=== PATIENT | female | born 1930 | race Caucasian/White ===

== ENCOUNTER → 2016-12-17 | Outpatient (CLI) | payer MEDICARE, OTHER | END | disposition home or self-care (01) | LOC: GMAJ 14:19 | PROVIDERS: ATTEND Family Medicine | DX: E53.9 Vitamin B deficiency, unspecified (principal); E55.9 Vitamin D deficiency, unspecified; R53.83 Other fatigue ==

== ENCOUNTER 2017-03-02 04:25 | Inpatient (IN) | payer MEDICARE ==
[2017-03-02] MEDS ORDERED: SODIUM CHLORIDE 0.9% 1000ML 500 ML IVS ONE (04:40)
[2017-03-02] MEDS ORDERED: HYDROmorphone HCL INJ 2 MG/ML VIAL IV ONE (04:40)
--- NOTE | 2017-03-02 04:52 | ED.PDOC ---
History of Present Illness - General Chief Complaint: Back Pain or Injury Stated Complaint: No BM in 2 to 3 days and low back pain Time Seen by Provider: 03/02/17 04:25 Source: patient, RN notes reviewed, family, EMS Exam Limitations: no limitations Additional Information: Pt brought in by EMS due to complaint of low back pain and abdominal pain. Pt lives with frail and has a daughter who lives nearby. Pt reports 3 days ago was her last BM. That day she had a Chiropractic adjustment. The following day she reports stretching before changing a light bulb and she started noticing lumbar pain after that. Pt has a history of previous compression fractures. Pt describes abdominal pain as diffuse and tender. She is comfortable in the stretcher during transport from ambulance to her exam room. She moaned a little due to pain/discomfort when transferring to exam bed. Neurologically she is completely intact regarding sensation and motor function. Her abdomen is a little diffusely tender but not distended. Quiescent bowel sounds. Family at bedside. Plan explained to patient and family and they are in agreement - labs, IV fluids, Pain Medicine, Imaging. - History of Present Illness Timing/Duration: other - 2 to 3 days Severity: moderate Improving Factors: rest Worsening Factors: movement Associated Symptoms: loss of appetite Allergies/Adverse Reactions: Allergies Diphenhydramine [From Benadryl] Allergy (Verified 03/02/17 04:42) Vomitting Meperidine [From Demerol HCl] Allergy (Verified 03/02/17 04:42) Amoxicillin [From Amoxil] Adverse Reaction (Verified 03/02/17 04:42) Calcitonin [From Miacalcin] Adverse Reaction (Verified 03/02/17 04:42) CI Pigment Blue 63 [From Bystolic] Adverse Reaction (Verified 03/02/17 04:42) Headache Escitalopram [From Lexapro] Adverse Reaction (Verified 03/02/17 04:42) Headache Nebivolol [From Bystolic] Adverse Reaction (Verified 03/02/17 04:42) Headache Phenol [From Forteo] Adverse Reaction (Verified 03/02/17 04:42) Raloxifene [From Evista] Adverse Reaction (Verified 03/02/17 04:42) Risedronate [From Actonel] Adverse Reaction (Verified 03/02/17 04:42) Sorbitan [From Bystolic] Adverse Reaction (Verified 03/02/17 04:42) Headache Teriparatide [From Forteo] Adverse Reaction (Verified 03/02/17 04:42) Yellow Dye [From Bystolic] Adverse Reaction (Verified 03/02/17 04:42) Headache Home Medications: Ambulatory Orders ALPRAZolam [Xanax] 0.25 mg PO BID PRN 10/03/14 Aspirin [Baby Aspirin] 81 mg PO DAILY 10/03/14 Citalopram Hydrobromide 40 mg PO DAILY 10/03/14 Pregabalin [Lyrica] 50 mg PO BEDTIME 10/03/14 Acetaminophen W/ Codeine [Tylenol W/ CODEINE #3] 1 ea PO Q6H PRN 01/09/15 Ibuprofen [Advil] 200 mg PO DAILY PRN 04/15/16 Lactobacillus Tab [Lactinex] 2 ea PO QID 04/15/16 Levalbuterol Tartrate [Xopenex Hfa] 45 mcg IN DAILY PRN 04/15/16 Polyethylene Glycol 3350 [Miralax] 17 gm PO DAILY PRN 04/15/16 Tramadol HCl 50 mg PO Q6H PRN #12 tab 04/15/16 Review of Systems - Review of Systems Constitutional: States: no symptoms reported EENTM: States: no symptoms reported Respiratory: States: no symptoms reported Cardiology: States: no symptoms reported Gastrointestinal/Abdominal: States: see HPI, abdominal pain, constipation Genitourinary: States: no symptoms reported Musculoskeletal: States: see HPI, back pain Skin: States: no symptoms reported Neurological: States: no symptoms reported Endocrine: States: no symptoms reported Hematologic/Lymphatic: States: no symptoms reported Past Medical History (General) - Patient Medical History Hx Seizures: No Hx Stroke: No Hx Dementia: No Hx Asthma: No Hx of COPD: Yes Hx Cardiac Disorders: No Hx Congestive Heart Failure: No Hx Pacemaker: No Hx Hypertension: Yes Hx Thyroid Disease: No Hx Diabetes: Yes Hx Gastroesophageal Reflux: No Hx Renal Disease: No Hx Cancer: No Hx of HIV: No Hx Hepatitis C: No Hx MRSA: No - Vaccination History Hx Tetanus, Diphtheria Vaccination: No Hx Influenza Vaccination: No Hx Pneumococcal Vaccination: No - Social History Hx Tobacco Use: Yes Hx Chewing Tobacco Use: No Hx Alcohol Use: Yes - wine Hx Substance Use: No Hx Substance Use Treatment: No Hx Depression: No Hx Physical Abuse: No Hx Emotional Abuse: No Hx Suspected Abuse: No - Female History Patient : No Family Medical History - Family History Mother Family History: No Known Living Status: Hx Cardiac Disease: Yes Physical Exam - Physical Exam General Appearance: Alert, Comfortable - at rest but she gets a little uncomfortable with palpation of abdomen and movement of her spine, Well Developed, Well Groomed, Well Hydrated, Well Nourished Eye Exam: bilateral normal Ears, Nose, Throat: hearing grossly normal, normal ENT inspection, normal pharynx Neck: non-tender, full range of motion, supple Respiratory: no respiratory distress, no accessory muscle use Cardiovascular/Chest: normal peripheral pulses, regular rate, rhythm Gastrointestinal/Abdominal: soft, abnormal bowel sounds - decreased, tenderness - mild - diffuse (especially lower abd) Back Exam: decreased range of motion, vertebral tenderness - around L3-L4 region Extremity: normal range of motion, non-tender, normal inspection Neurologic: training analyst II-XII nml as tested, no motor/sensory deficits, alert, normal mood/affect, oriented x 3 Skin Exam: normal color Lymphatic: no adenopathy Progress - Progress Progress: 03/02/17 05:46 Patient's pain improved after Dilaudid. Labs reviewed with patient and family. CT Scans obtained. CT Abd/Pelvis IMPRESSION: 1. Colonic diverticulosis without evidence of diverticulitis. 2. Large hiatal hernia. 3. No bowel obstruction. 4. No acute osseous abnormalities. Lumbar CT IMPRESSION: 1. Age indeterminate T11 superior endplate compression fracture, recommend correlation focal pain. 2. Chronic L2 compression fracture. 3. Multilevel degenerative changes. 03/02/17 06:16 Pt reports improvement in pain but it is still there. She is uncomfortable moving. Case discussed with Hayley Nolen (Nurse Practitioner ) who accepted patient for admission for pain control, observation and coordination for rehab. - Results/Orders Results/Orders: 03/02/17 04:38 Abdomen/Pelvis w/Contrast [CT] Stat 03/02/17 04:39 Hold Metformin x 48Hrs [id number] Lumbar Spine [CT] Stat Laboratory Results - last 24 hr 03/02/17 03/02/17 03/02/17 04:15 04:15 04:15 WBC 8.3 RBC 5.01 Hgb 14.9 Hct 45.0 MCV 89.8 MCH 29.8 MCHC 33.2 RDW 14.4 Plt Count 203 MPV 9.0 Absolute Neuts (auto) 4.80 Absolute Lymphs (auto) 3.10 Absolute Monos (auto) 0.50 Absolute Eos (auto) 0.00 Absolute Basos (auto) 0.00 Neutrophils % 57.1 Lymphocytes % 36.8 Monocytes % 5.6 Eosinophils % 0.1 L Basophils % 0.4 Sodium 136 Potassium 3.7 Chloride 102 Carbon Dioxide 25 Anion Gap 12.7 BUN 15 Creatinine 0.55 L BUN/Creatinine Ratio 27.3 H Random Glucose 107 H Serum Osmolality 273.3 L Calcium 9.6 Phosphorus 3.0 Magnesium 1.9 Total Bilirubin 0.6 AST 21 ALT 13 Alkaline Phosphatase 71 Serum Total Protein 8.3 H Albumin 4.1 Globulin 4.2 H Albumin/Globulin Ratio 1.0 L Departure - Departure Clinical Impression: Degeneration of lumbosacral intervertebral disc Constipation Qualifiers: Constipation type: unspecified constipation type Qualified Code(s): K59.00 - Constipation, unspecified Low back pain Qualifiers: Back pain laterality: midline Sciatica presence: without sciatica Qualified Code(s): M54.5 - Low back pain Thoracic compression fracture Qualifiers: Encounter type: initial encounter Fracture type: closed Qualified Code(s): S22.000A - Wedge compression fracture of unspecified thoracic vertebra, initial encounter for closed fracture Time of Disposition: 06:55 Disposition: Admit Patient Departure Forms: ED Discharge - Pt. Copy, Patient Portal Self Enrollment Referrals: [place] Urrutia III, MD [Primary Care Provider] - 1-5 Days Home Medications: Ambulatory Orders ALPRAZolam [Xanax] 0.25 mg PO BID PRN 10/03/14 Aspirin [Baby Aspirin] 81 mg PO DAILY 10/03/14 Citalopram Hydrobromide 40 mg PO DAILY 10/03/14 Pregabalin [Lyrica] 50 mg PO BEDTIME 10/03/14 Acetaminophen W/ Codeine [Tylenol W/ CODEINE #3] 1 ea PO Q6H PRN 01/09/15 Ibuprofen [Advil] 200 mg PO DAILY PRN 04/15/16 Lactobacillus Tab [Lactinex] 2 ea PO QID 04/15/16 Levalbuterol Tartrate [Xopenex Hfa] 45 mcg IN DAILY PRN 04/15/16 Polyethylene Glycol 3350 [Miralax] 17 gm PO DAILY PRN 04/15/16 Tramadol HCl 50 mg PO Q6H PRN #12 tab 04/15/16 Decision To Admit - Decistion To Admit Decision to Admit Reason: Medical Nature - Compression Fracture of T12. Pain Control. Decision to Admit Date: 03/02/17 Decision to Admit Time: 06:36
--- NOTE | 2017-03-02 05:58 | CT ---
EXAM DESCRIPTION: Lumbar Spine 03/02/2017 5:54 AM CDT CLINICAL HISTORY: 86 years, Female, frail elderly abdominal pain and lumbar pain COMPARISON: Lumbar spine radiographs October 09, 2016 TECHNIQUE: Volumetric CT acquisition was performed through the lumbar spine. Images in the axial, coronal, and sagittal planes were presented for interpretation. This exam was performed according to our departmental dose-optimization program, which includes automated exposure control, adjustment of the mA and/or kV according to patient size and/or use of iterative reconstruction technique. FINDINGS: There are 5 lumbar type vertebral bodies in normal anatomic alignment. There is a chronic L2 compression fracture. There is an age indeterminate T11 superior endplate compression fracture. There is no additional fracture or dislocation. There are multilevel degenerative changes throughout the lumbar spine. At the L1/L2 level, there is normal disc space height without significant canal or neural foraminal narrowing bilaterally At the L2/L3 level, there is a mild concentric disc bulge with facet hypertrophy bilaterally. There is mild neural foraminal narrowing on the right and mild to moderate neural foraminal narrowing on the left At the L3/L4 level, there is loss of disc space height with a small concentric disc bulge. There is facet and ligamentous hypertrophy bilaterally. There is mild to moderate neural foraminal narrowing bilaterally At the L4/L5 level, there is a moderate concentric disc bulge with moderate facet and ligamentous hypertrophy bilaterally. There is moderate neuroforaminal narrowing bilaterally At the L5/S1 level, there is loss of disc space height with a small concentric disc bulge. There is facet hypertrophy bilaterally. There is moderate severe neuroforaminal narrowing left and moderate neural foraminal narrowing on the right. The paravertebral and prevertebral soft tissues are normal. The visualized soft tissue structures of the abdomen are normal. The visualized vasculature is normal. There are extensive sigmoid diverticula without associated wall thickening or inflammatory changes. IMPRESSION: 1. Age indeterminate T11 superior endplate compression fracture, recommend correlation focal pain. 2. Chronic L2 compression fracture. 3. Multilevel degenerative changes. Electronically signed by: Jg Quinonez MD 03/02/2017 5:57 AM CDT
--- NOTE | 2017-03-02 06:14 | CT ---
Procedure: CT ABDOMEN PELVIS WITH IV CONTRAST Exam Date: 03/02/2017 Ordering Provider: Jaquan Rubio Clinical Indication: frail elderly abdominal pain and lumbar pain Comparison: 01/09/2015 TECHNIQUE: 5 mm images were taken through the abdomen and pelvis after the administration of nonionic intravenous contrast material. Oral contrast was not administered. Coronal and sagittal reformatted images were generated. This exam was performed according to our departmental dose optimization program which includes use of automated exposure control, adjustment of the mA and/or kV according to patient size and/or use of iterative reconstruction technique. FINDINGS: Lower chest: Cardiomegaly. Mild atelectasis in the dependent lower lobes. Abdomen: Liver and biliary system: No liver lesions. Very mild intrahepatic biliary ductal dilatation. No calcified gallstones. Spleen: Unremarkable Pancreas: Unremarkable Adrenal glands: Unremarkable Kidneys: No suspicious lesions or hydronephrosis in either kidney. Subcentimeter low-density lesions in both kidneys are too small to characterize. Lymph nodes: No lymphadenopathy Retroperitoneum, abdominal wall, peritoneal cavity: No ascites. No free intraperitoneal air. Vessels: No abdominal aortic aneurysm. Pelvis: Evaluation of the pelvis is limited by streak artifact from the patient's right hip prosthesis. Lymph nodes: No lymphadenopathy Bowel: Colonic diverticulosis without evidence of diverticulitis. Large hiatal hernia. No bowel obstruction. Appendix not visualized. No secondary findings to suggest acute appendicitis. No bowel wall thickening. Bladder: Grossly unremarkable Pelvic organs: Prior hysterectomy Bones: Postsurgical changes in the left hip. Diffuse demineralization of the bones. Vertebral body augmentation at T9. No acute osseous abnormalities. Old compression fracture of L2. IMPRESSION: 1. Colonic diverticulosis without evidence of diverticulitis. 2. Large hiatal hernia. 3. No bowel obstruction. 4. No acute osseous abnormalities. Electronically signed by: Elijah Simms MD 03/02/2017 6:14 AM CDT
--- NOTE | 2017-03-02 07:28 | HP ---
SUPERVISING PHYSICIAN: Derek Robbins M.D. CHIEF COMPLAINT: Back pain. HISTORY OF PRESENT ILLNESS: This is an 86 year-old female patient who has a significant history of lumbar radiculopathy as well as a chronic L2 compression fracture. She was brought in by EMS to the Emergency Room due to a complaint of low back pain as well as abdominal pain. She sees Dr. Dimas who is a chiropractor, and she saw her on . On Friday, she was attempting to replace a battery in her ceiling fire alarm. Her was holding the small ladder that she was standing on and as she reached for it she was able to get the battery out, but she felt a pop in her back as she twisted. She got down without incidence. There was no fall or traumatic injury. Shortly thereafter, her back began hurting. The pain worsened overnight. It got to the point yesterday where the pain was so bad in her back that she started to have abdominal pain also. She has a history of diverticulosis with several hospitalization for diverticulitis. She was brought to the hospital. A CT of her lumbar spine showed the old chronic L2 compression fracture, but it also showed an age indeterminate L11 superior end plate compression fracture. Her abdomen and pelvis CT per radiology interpretation shows colonic diverticulosis without evidence of diverticulitis, large hiatal hernia, no bowel obstruction, no acute osseous abnormalities. Laboratory shows CBC basically within normal limits. Metabolic panel shows electrolytes are within normal limits with the exception of creatinine is slightly low at 0.55, glucose slightly high at 107. I was called for hospital admission. PAST MEDICAL HISTORY: 1. Hypertension. 2. Hyperlipidemia. 3. Diverticulosis. 4. Osteoporosis. 5. Seasonal allergies. 6. Constipation. 7. Lumbar radiculopathy. PAST SURGICAL HISTORY: 1. Hysterectomy. 2. Open reduction and internal fixation of the right elbow. 3. Open reduction and internal fixation of the left hip. OUTPATIENT MEDICATIONS: Per the EMR and awaiting verification. ALLERGIES: DIPHENHYDRAMINE, DEMEROL, AMOXICILLIN, CALCITONIN, PIGMENT BLUE FROM BYSTOLIC, LEXAPRO, BYSTOLIC, FORTEO, EVISTA AND ACTONEL. SOCIAL HISTORY: She is retired. She is . She has 2 children. She is a retired surgical scrub nurse. She smoked briefly for 2 years many years ago. She drinks alcohol on a regular basis. She usually consumes either 1 beer or 1 glass of wine daily. She denies any illicit drug use. REVIEW OF SYSTEMS: GENERAL: Denies fever, fatigue or weight changes. HEENT: Denies sinus symptoms, ear pain, vision changes or sore throat. RESPIRATORY: Denies coughing, wheezing, shortness of breath. CARDIOLOGY: Denies chest pain, tachycardia or palpitations. GASTROINTESTINAL: Positive for diffuse abdominal pain most concentrated in the right upper quadrant. There has been no nausea, vomiting, diarrhea or constipation. GENITOURINARY: No polyuria, dysuria or hematuria. MUSCULOSKELETAL: As per the history of present illness. SKIN: Denies lesions or rashes. NEUROLOGIC: Positive for weakness. Denies headache or seizures. PHYSICAL EXAMINATION: VITAL SIGNS: She is afebrile, heart rate 69, blood pressure 155/82, respiratory rate 20 but it got as high as 24 in the Emergency Room. Her O2 sats are 93%. GENERAL: This is an 86 year-old female patient who is lying in her hospital bed. She looks to be in mild to moderate pain. HEENT: Normocephalic and atraumatic. Pupils are equal and reactive. Oropharynx is clear. NECK: Supple without mass. CHEST: Clear to auscultation bilaterally. There is equal rise and fall of the chest with inspiration and expiration. CARDIOVASCULAR: Regular rate and rhythm. ABDOMEN: Soft. Diffusely tender but slightly more tender in the right lower quadrant. There is no rebound tenderness and no guarding. BACK: Exam shows vertebral tenderness in the low back region. EXTREMITIES: No cyanosis, clubbing or edema. NEUROLOGIC: She is awake, alert and oriented times three. SKIN: No lesions or rashes noted. LABORATORY: Labs and films are as per the History of Present Illness. ASSESSMENT: 1. Intractable pain related to a T11 compression fracture with an existing chronic L2 compression fracture. 2. Abdominal pain with significant history of diverticulitis and CT evidence of colonic diverticulosis with no current diverticulitis. 3. Lumbar radiculopathy. 4. Mild hypertension presently on no antihypertensive. 5. Anxiety and depression. 6. History of constipation. 7. Osteoporosis. PLAN: We will admit the patient to the hospital. I will give her 3 doses of Toradol IV. I have started her on Tramadol for pain. I have consulted Dr. Clark in regards to her compression fracture. We placed a Phillips catheter. I will also order an abdominal sonogram in the morning given her significant history of diverticulitis as well as that tenderness on the right side. I have given her Lovenox for DVT prophylaxis as well as Protonix for ulcer prophylaxis. Routine labs for in the morning. Will review her medications and restart those. Otherwise we will continue to monitor the patient closely and followup as needed. Dr. Robbins is he collaborating physician and available for consultation. #[id number] [facility]ERNis[facility]
[2017-03-02] MEDS ORDERED: KETOROLAC TROMETHAMINE INJ 30 MG/ML VIAL ONE (11:26)
[2017-03-02] MEDS ORDERED: ONDANSETRON INJ 4 MG/2 ML VIAL IV PRN (11:27)
[2017-03-02] MEDS ORDERED: ACETAMINOPHEN SUPPOSITORY 650 MG PR PRN (11:27)
[2017-03-02] MEDS ORDERED: IV SET AND CAP CHANGE INJ INJ SCH (11:30)
[2017-03-02] MEDS: KETOROLAC TROMETHAMINE INJ 30 MG/ML VIAL IV SCH ×3 (11:30→23:45)
--- NOTE | 2017-03-02 12:22 | PCM.CORE ---
Physician DVT/VTE - Prophylaxis Currently: Patient already on anticoagulation therapy - Nurse DVT Assessment & Total Each Risk Factor Represents 3 Points: Age over 75 years Each Risk Factor Represents 1 Point: Medical PT at Bed Rest DVT Assessment Score: 4 - 3-4 High Risk Treatments: Early Ambulation *, Sequential Compression Device
[2017-03-02] MEDS: PANTOPRAZOLE SODIUM IV 40 MG VIAL IV SCH (13:25)
[2017-03-02] MEDS: ENOXAPARIN SODIUM 40 MG/0.4 ML SYG SUBCU SCH (13:25)
[2017-03-02] MEDS ORDERED: ALPRAZolam 0.25 MG TAB PO ONE (16:44)
[2017-03-02] MEDS ORDERED: ALPRAZolam 0.25 MG TAB PO PRN (16:48)
[2017-03-02] MEDS ORDERED: NON-FORMULARY MEDICATION 1 EA MIS (Citalopram Hydrobromide [Citalopram Hydrobromide] 40 MG PO SCH (17:00)
[2017-03-02] MEDS ORDERED: CITALOPRAM HBR 20 MG TAB ONE (17:32)
[2017-03-02] MEDS: CITALOPRAM HBR 20 MG TAB PO SCH (17:38)
[2017-03-02] MEDS ORDERED: PREGABALIN 25 MG CAP ONE (20:18)
[2017-03-02] MEDS: SODIUM CHLORIDE 0.9% (FLUSH) 10 ML SYG IV SCH (20:52)
[2017-03-02] MEDS ORDERED: NON-FORMULARY MEDICATION 1 EA MIS (Pregabalin [Lyrica] 50 MG) PO SCH (21:00)
[2017-03-02] MEDS: traMADol HCL 50 MG TAB PO PRN (21:07)
[2017-03-02] MEDS: SODIUM CHLORIDE 0.9% (FLUSH) 10 ML SYG IV PRN (23:45)
[2017-03-03] MEDS: SODIUM CHLORIDE 0.9% (FLUSH) 10 ML SYG IV PRN (06:14)
[2017-03-03] MEDS: PANTOPRAZOLE SODIUM IV 40 MG VIAL IV SCH (06:15)
[2017-03-03] MEDS ORDERED: PREGABALIN 25 MG CAP ONE (07:18)
[2017-03-03] MEDS: ENOXAPARIN SODIUM 40 MG/0.4 ML SYG SUBCU SCH (09:02)
[2017-03-03] MEDS: PREGABALIN 25 MG CAP PO SCH ×2 (09:03→21:30)
[2017-03-03] MEDS: CITALOPRAM HBR 20 MG TAB PO SCH (09:03)
[2017-03-03] MEDS: SODIUM CHLORIDE 0.9% (FLUSH) 10 ML SYG IV SCH ×2 (09:04→21:31)
--- NOTE | 2017-03-03 11:31 | CONS ---
CHIEF COMPLAINT: Back pain. HISTORY OF PRESENT ILLNESS: Ms. Nguyen is an 86-year-old female with a history of back pain that has been going on for about five days. She had no direct trauma related to this. She has been admitted and has had CT scan which was concerning for some compression fractures. She had no fall or anything, but she did have a point where she twisted and then felt the initial pain. She denies any neurologic symptoms. She has had vertebroplasty in the past for other fractures. PAST MEDICAL HISTORY: 1. Hypertension. 2. Hyperlipidemia. 3. Diverticulosis. 4. Osteoporosis. 5. Allergies. 6. Constipation. 7. Lumbar radiculopathy. PAST SURGICAL HISTORY: 1. Hysterectomy. 2. Left hip hemiarthroplasty. 3. Right elbow open reduction and internal fixation. MEDICATIONS: Please see her current medication list. ALLERGIES: BENADRYL, DEMEROL, AMOXIL, CALCITONIN, LEXAPRO, BYSTOLIC, FORTEO, EVISTA, ACTONEL. SOCIAL HISTORY: The patient does not smoke or use any illicit drugs. She does drink on occasion. FAMILY HISTORY: None pertinent to today's complaint. REVIEW OF SYSTEMS: Negative except as indicated in the History of Present Illness. PHYSICAL EXAMINATION: VITAL SIGNS: Blood pressure 155/82. Pulse 69. Respirations 20. O2 saturation 93%. Afebrile. MENTAL STATUS: The patient is awake, alert, and is able to give a good history and participate in the physical. The patient is oriented to person, place and time. SKIN: Normal tone and turgor. HEENT: Normocephalic, atraumatic. Pupils equal, round and reactive. Mucosal membranes are moist. NECK: Normal range of motion. No thyromegaly, no lymphadenopathy. CHEST: Normal respiratory excursion. CARDIAC: Regular rate and rhythm. No murmurs, rubs or gallops. MUSCULOSKELETAL: The bilateral upper extremities show no pain with range of motion. Sensation is intact. They are warm and well perfused. She has no crepitus and no deformity. The right lower extremity shows no significant discomfort. There is no deformity. The left lower extremity shows some mild discomfort with range of motion of the hip secondary to previous injury. She has no deformity. She does have some minor tenderness to palpation in the T11-T12 region. She has no step-offs and no bruising. She does have some paraspinous tenderness. IMAGING: She had some x-rays as well as CT scan done. The CT scan does show some what appear to be chronic fractures and possibly a compression fracture of T12 which is indeterminate with regards to age. ASSESSMENT: 1. Compression fracture, age indeterminate. PLAN: The plan at this point is for the patient to ambulate as tolerated. This type of fracture is generally stable and there are usually no issues with regards to worsening. Pain control would also be indicated. I appreciate the opportunity to participate in this patient's care. #[id number] [facility]
[2017-03-03] MEDS: traMADol HCL 50 MG TAB PO PRN (13:48)
[2017-03-03] MEDS: HYDROcodone 5MG/APAP 325MG 1 EA TAB PO PRN (16:54)
--- NOTE | 2017-03-03 20:57 | PN ---
DATE: 03/03/17 SUPERVISING PHYSICIAN: Rafael Peña M.D. SUBJECTIVE: The patient is sitting in the bedside chair eating lunch. She says she is fairly well controlled on her pain at this point. She was able to ambulate with the assistance of Physical Therapy with weightbearing as tolerated. OBJECTIVE: Temperature 98.2, pulse 63, blood pressure 106/62, respirations 18, satting 93% on room air. I's and O's show a negative balance of 840 with 360 in , 1200 out. LUNGS: Clear to auscultation bilaterally. HEART: Regular rate and rhythm. ABDOMEN: Soft, non-tender. Positive bowel sounds. EXTREMITIES: No clubbing, cyanosis or edema. BACK: Continues to have some mild tenderness over the T11 area. NEUROLOGIC: She is alert and oriented times three. LABORATORY: White count is within normal limits at 5.2, hemoglobin 13.4, hematocrit 40.6, platelet count 159,000. Differential continues to show normal without any shift. Chemistries show a slightly low potassium at 3.3 with BUN 17 , creatinine 0.74, glucose 79. Liver functions show to be within normal limits. RADIOLOGY: There were no radiographic studies. ASSESSMENT: 1. Intractable pain related to T11 compression fracture, undetermined acuity with existing chronic L2 compression fracture. 2. Abdominal pain with a history of diverticulitis with CT evidence of chronic diverticulosis but no current diverticulitis. 3. Lumbar radiculopathy. 4. Mild hypertension, controlled. 5. Anxiety and depression. 6. History of constipation. 7. Osteoporosis. PLAN: The patient continues to have good pain control. Dr. Clark has seen the patient in consultation recommending that she be weightbearing as tolerated. This morning, the patient was without any tenderness in her abdominal area. Will continue to monitor this closely. If she does once again show some tenderness, certainly we will reevaluate with additional radiographic studies. Will continue to provide pain control with p.o. medications in anticipation that the patient will discharge tomorrow once she again is reevaluated by Physical Therapy. Arrangements have been made for the patient to go making sure that she is safe once she is discharged. Once discharged, she will need close followup with her primary care physician, Dr. Urrutia. Until then, will continue to monitor the patient closely and treat appropriately. #[id number] [facility]
[2017-03-04] MEDS: HYDROcodone 5MG/APAP 325MG 1 EA TAB PO PRN (02:14)
[2017-03-04] MEDS: PANTOPRAZOLE SODIUM IV 40 MG VIAL IV SCH (05:32)
[2017-03-04] MEDS: SODIUM CHLORIDE 0.9% (FLUSH) 10 ML SYG IV PRN (05:32)
[2017-03-04] MEDS: ENOXAPARIN SODIUM 40 MG/0.4 ML SYG SUBCU SCH (09:23)
[2017-03-04] MEDS: CITALOPRAM HBR 20 MG TAB PO SCH (09:23)
[2017-03-04] MEDS: PREGABALIN 25 MG CAP PO SCH (09:23)
[2017-03-04] MEDS: SODIUM CHLORIDE 0.9% (FLUSH) 10 ML SYG IV SCH (09:24)
[2017-03-04 14:14] VITALS: TEMP 97.8
[2017-03-04 14:16] VITALS: BP 110/75; O2SAT 95
[2017-03-05] MEDS ORDERED: PANTOPRAZOLE SODIUM TAB 40 MG PO SCH (06:30)
--- NOTE | 2017-03-09 14:18 | DS ---
SUPERVISING PHYSICIAN: Rafael Peña M.D. DISCHARGE DIAGNOSIS: 1. Pain related to T11 compression fracture, undetermined acuity with existing L2 compression fracture, chronic. 2. Abdominal pain with a history of diverticulitis with CT evidence of chronic diverticulosis but no current diverticulitis, resolved prior to discharge. 3. Lumbar radiculopathy, chronic. 4. Mild hypertension, controlled. 5. Anxiety and depression. 6. History of constipation likely contributing to number 2. 7. Osteoporosis. HISTORY OF PRESENT ILLNESS: Ms. Nguyen is an 86 year-old female patient who with a significant history of lumbar radiculopathy as well as a chronic L2 compression fracture. She was brought into the Emergency Room by EMS due to a complaints of lower back pain as well as some abdominal pain. She had seen Dr. Dimas who is a chiropractor, and she saw him on prior to admission. On Friday, she was attempting to replace a battery in her ceiling in the fire alarm. Her was holding the small ladder that she was standing on and as she reached for it she was able to pull the battery out, but she felt a pop, turned and twisted, and felt pain. She got down without any incident with no reported falls or other traumatic injuries. Shortly after , her back began hurting. The pain worsened overnight to the point where yesterday, the day before admission, the pain was so bad in her back that she started having abdominal pains. She has a history of diverticulosis with several hospitalization for diverticulitis. She was brought to the hospital. A CT of her lumbar spine showed the old chronic L2 compression fracture, but also showed an age indeterminate T11 superior end plate compression fracture. Her abdomen and pelvis CT per radiology interpretation showed colonic diverticulosis without any diverticulitis, large hiatal hernia, no bowel obstruction, no acute osseous abnormalities. Laboratory studies initially were within normal limits. Given her intractable pain, she was placed in Observation for further treatment of her pain and to have orthopedic consultation. She was admitted in stable condition. LABORATORY: CBC was within normal limits both on admission and prior to discharge. Chemistries showed to be normal electrolytes. At discharge, potassium was slightly low at 3.3 as well as sodium had dropped to 134. BUN was slightly elevated at 24 but creatinine was 0.62. Liver functions all showed to be within normal limits. Calcium was within normal limits at 8.9, phosphorous and magnesium as well. RADIOLOGY: Abdominal and pelvis CT in the Emergency Room prior to admission with IV contrast and per radiology interpretation noted colonic diverticulosis without evidence of diverticulitis. There is also mention of large hiatal hernia but no bowel obstruction. No acute osseous abnormalities. She also had a lumbar spine CT completed and per radiology interpretation there was an age indeterminate T11 superior end plate compression fracture, chronic L2 compression fracture and multilevel degenerative changes. Please see that final result for full details on findings. HOSPITAL COURSE: Ms. Nguyen was admitted on 03/02/17 as noted for pain and some mild abdominal pain. She was started on pain medicine and was given some physical therapy assessment as well as seen in consultation by Dr. Clark. Refer to his notes for full findings. It was felt that her fracture was stable after seeing Dr. Clark. She was able to get up and ambulate with assistance with Physical Therapy and was felt safe enough to be discharged home. She also had some mild constipation that resolved with treatment and again was felt clinically well enough to be discharged. PLAN: Ms. Nguyen was discharged on 03/04/17 to have close clinical followup with Dr. Urrutia in 7 to 10 days as scheduled, and to have care with Physical Therapy at [facility]. She is to resume all of her home medications as directed. In regards to treatment of pain, she was encouraged to try Tylenol initially and if not working then she could advance to Tramadol as in the hospital, she felt Tramadol worked better than [place]. Walking as tolerated was encouraged as instructed by home health and physical therapy. She was told to return to the hospital if her condition failed to improve or any other concerning symptoms. At discharge, new prescriptions included: 1. Tramadol 50 mg every 6 hours as needed, #30 for pain. All other medications prior to admission were resumed. Diet at discharge was as tolerated. Advanced to normal diet. Activity is as per physical therapy with no lifting or pulling until seen in followup. Condition at discharge was improved and stable. #[id number] [facility]
== END 2017-03-04 15:05 | disposition home health service (06) | DRG 544 ==
LOC: ER 04:25 → MS 07:22 → OBSVTOIN 07:22
PROVIDERS: ADMIT Nurse Practitioner Acute Care; ATTEND Nurse Practitioner Family
PROC: BW21YZZ Computerized Tomography (CT Scan) of Abdomen and Pelvis using Other Contrast (ICD-10-PCS; principal; 2017-03-02)
DX: M48.54XA Collapsed vertebra, not elsewhere classified, thoracic region, initial encounter for fracture (principal); M48.56XD Collapsed vertebra, not elsewhere classified, lumbar region, subsequent encounter for fracture with routine healing; M54.16 Radiculopathy, lumbar region; M81.0 Age-related osteoporosis without current pathological fracture; R10.9 Unspecified abdominal pain; I10 Essential (primary) hypertension; E78.5 Hyperlipidemia, unspecified; K59.00 Constipation, unspecified; K57.30 Diverticulosis of large intestine without perforation or abscess without bleeding; F41.9 Anxiety disorder, unspecified; E11.9 Type 2 diabetes mellitus without complications; J30.2 Other seasonal allergic rhinitis; J44.9 Chronic obstructive pulmonary disease, unspecified; F32.9 Major depressive disorder, single episode, unspecified; Z96.642 Presence of left artificial hip joint; Z88.8 Allergy status to other drugs, medicaments and biological substances; Z88.5 Allergy status to narcotic agent; Z88.0 Allergy status to penicillin; Z87.891 Personal history of nicotine dependence; Z79.1 Long term (current) use of non-steroidal anti-inflammatories (NSAID); Z79.82 Long term (current) use of aspirin; Z79.899 Other long term (current) drug therapy

== ENCOUNTER → 2017-03-13 | Outpatient (CLI) | payer MEDICARE ==
--- NOTE | 2017-03-13 11:48 | MRI ---
Procedure: MR THORACIC SPINE WITHOUT IV CONTRAST Exam Date: 03/13/2017 12:00 AM CDT Ordering Provider: DARRYL HANDLEY Clinical Indication: PAIN IN THORACIC SPINE Comparison: None TECHNIQUE: Multiplanar, multisequence images of the thoracic spine were obtained without the demonstration of IV contrast. FINDINGS: There is evidence of an acute superior endplate compression fracture involving the T12 vertebral body with approximately 20% anterior height loss. There is a 2 mm osseous retropulsion. There is [id number] central canal stenosis. There is evidence of a chronic appearing superior endplate compression fracture involving T9 vertebral body with changes related to percutaneous vertebral body augmentation. 3 mm osseous retropulsion is present but there is no significant central canal stenosis. Multilevel small disc protrusions and disc osteophyte complexes are seen at remaining levels of the lumbar spine but no significant stenosis is present. Visualized remaining soft tissue structures are unremarkable. IMPRESSION: Acute T12 superior endplate compression fracture with mild osseous retropulsion and results in mild to moderate central canal stenosis. Chronic T9 vertebral body compression fracture with superimposed changes related to previous kyphoplasty/vertebroplasty. Electronically signed by: Carissa Webster MD 03/13/2017 11:48 AM CDT
--- NOTE | 2017-03-13 12:00 | MRI ---
Procedure: MR LUMBAR SPINE WITHOUT IV CONTRAST Exam Date: 03/13/2017 12:00 AM CDT Ordering Provider: DARRYL HANDLEY Clinical Indication: RADICULOPATHY Comparison: None Technique: Multisequence, multiplanar images of the lumbar spine were obtained without administration of intravenous gadolinium based contrast. 0 cc contrast was given. Findings: Prominent superior endplate Schmorl's node is seen involving the L2 vertebral body. Compression fracture involving the T12 vertebral body as detailed on separate thoracic spine MRI. The conus terminates at L1-L2 level, within normal limits. Nerve roots of the cauda equina are unremarkable. L1-L2: Shallow disc bulge and bilateral moderate facet degeneration. No significant stenosis. L2-L3: Circumferential disc bulge, moderate bilateral facet degeneration. No significant stenosis. L3-L4: Circumferential disc bulge, moderate bilateral facet degeneration, ligamentum flavum hypertrophy contribute to mild to moderate central canal stenosis. Mild bilateral neural foraminal stenosis. L4-L5: Shallow disc bulge, moderate bilateral facet degeneration, and ligamentum flavum hypertrophy contribute to mild central canal stenosis. No significant neural foraminal stenosis. L5-S1: Shallow disc bulge, posterior endplate ridging, severe bilateral facet degeneration and ligamentum flavum hypertrophy contribute to mild to moderate central canal stenosis. Mild left and moderate right neural foraminal stenosis. Other: None. Impression: Acute compression fracture involving the T12 superior endplate, detailed on separate thoracic spine MRI. Prominent superior end plate Schmorl's node in the L2 vertebral body. No acute fracture involving the lumbar spine vertebral bodies. Multilevel, multifactorial spondylosis with varying degrees of neural foraminal and central canal stenosis as detailed above. Electronically signed by: Carissa Webster MD 03/13/2017 11:59 AM CDT
== END | disposition home or self-care (01) ==
LOC: MRI 10:09
PROVIDERS: ATTEND Family Medicine
DX: M54.16 Radiculopathy, lumbar region (principal); M54.6 Pain in thoracic spine

== ENCOUNTER → 2017-04-02 | Outpatient (CLI) | payer MEDICARE ==
--- NOTE | 2017-04-02 13:14 | RAD ---
EXAM DESCRIPTION: Abdomen Flat Upright CLINICAL HISTORY: RIGHT UPPER QUADRANT PAIN COMPARISON: 18 June 2016 TECHNIQUE: AP supine and upright views the abdomen FINDINGS: There is evidence of prior vertebral body augmentation at T9 and T12. The bowel gas pattern is normal. A left hip arthroplasty is observed. No organomegaly is detected. No free air is seen. The lung bases are clear. IMPRESSION: Unremarkable abdomen. Electronically signed by: West Mcdonnell MD 04/02/2017 1:13 PM CDT
--- NOTE | 2017-04-02 13:41 | US ---
EXAM DESCRIPTION: Abdomen,Limited CLINICAL HISTORY: 86 years Female, RIGHT UPPER QUADRANT PAIN COMPARISON: None. FINDINGS: Right upper quadrant sonography demonstrates a normal-appearing liver measuring 12.6 cm in length without focal cystic or solid mass. Region of the pancreas is normal with no cystic or solid mass identified. No ascites is noted. The gallbladder is normally distended but does not appear thick-walled with numerous small to moderate shadowing stones in the dependent portion as large as 0.5 cm in size. Common bile duct is normal at 5.5 mm. No intrahepatic ductal dilation is present. IMPRESSION: Cholelithiasis with normal biliary ductal system without changes of acute cholecystitis or tenderness. Electronically signed by: Derek Layton MD 04/02/2017 1:40 PM CDT
== END | disposition home or self-care (01) ==
LOC: US 08:46
PROVIDERS: ATTEND Surgery
DX: R10.11 Right upper quadrant pain (principal)

== ENCOUNTER 2017-04-08 16:34 | Inpatient (IN) | payer MEDICARE ==
--- NOTE | 2017-04-08 16:37 | HP ---
SUPERVISING PHYSICIAN: Rafael Peña MD CHIEF COMPLAINT: Severe constipation and abdominal pain. HISTORY OF PRESENT ILLNESS: Ms. Nguyen is an 86-year-old, female patient of Dr. Bray who had a recent T12 compression fracture secondary to acute injury in February of 2017, having had a kyphoplasty procedure completed in the last two weeks. Since her injury in February, the patient has continued to have on and off issues with constipation. She has been trying [id number] remedies with MiraLAX and Milk of Magnesia with minimal results. She presented to Dr. Wilkes's office today with abdominal pain and was seen in the office. She was initially going to be started on Linzess, but due to the patient's significant comorbidities and ongoing abdominal pains, it would felt it would be of benefit for the patient to be admitted for continuation of treatment and close monitoring given the severity of her constipation and abdominal pains and recent previous surgery. The patient was directly from Dr. Wilkes's office. She was admitted to the hospital in stable condition. PAST MEDICAL HISTORY: 1. Chronic constipation. 2. Hypertension. 3. Hyperlipidemia. 4. Diverticulosis. 5. Osteoporosis. 6. Seasonal allergies. 7. Lumbar radiculopathy. PAST SURGICAL HISTORY: 1. Recent T12 kyphoplasty. 2. Hysterectomy. 3. Open reduction and internal fixation of the right elbow. 4. Open reduction and internal fixation of the left hip. HOME MEDICATIONS: 1. Xanax 0.25 mg twice daily. 2. Lyrica 50 mg twice daily. 3. Citalopram 40 mg daily. 4. Tramadol 50 mg q.6h. p.r.n. as needed for pain. 5. Aspirin 81 mg daily. ALLERGIES: DIPHENHYDRAMINE, DEMEROL, AMOXICILLIN, CALCITONIN, PIGMENT BLUE FROM BYSTOLIC, LEXAPRO, BYSTOLIC, FORTEO, EVISTA AND ACTONEL. FAMILY HISTORY: Unremarkable. SOCIAL HISTORY: She is retired. She is . She is a retired surgical nurse. She smoked briefly for two years many years ago. She drinks alcohol on a regular basis. She usually consumes either 1 beer or 1 glass of wine daily. She denies any illicit drug use. REVIEW OF SYSTEMS: CONSTITUTIONAL: Denies any fevers, chills, or weight changes. HEENT: Denies sinus symptoms, ear pain, vision changes or sore throat. RESPIRATORY: Denies coughing, wheezing, shortness of breath. CARDIOVASCULAR: Denies chest pain, tachycardia or palpitations. GASTROINTESTINAL: As noted in history of present illness, diffuse abdominal pain with severe constipation, but denies nausea or vomiting. GENITOURINARY: Denies dysuria, hematuria, polyuria. MUSCULOSKELETAL: Recent T12 compression fracture having a kyphoplasty in the last two weeks. NEUROLOGIC: She notes she has some weakness, but denies any headaches or seizures. PHYSICAL EXAMINATION: VITAL SIGNS: Temperature 97.2. Pulse 63. Blood pressure 161/78. Respirations 20. O2 saturation 94% on room air. Admission weight 67.4 kg. GENERAL: The patient is seen on the Medical/Surgical Floor and appears to be in some mild distress secondary to ongoing abdominal pain and constipation. HEENT: Tympanic membranes clear bilaterally. Oropharynx is pink, mucous membranes slightly dry. No lesions noted. NECK: Supple, full range of motion, nontender. No jugular venous distention noted. CHEST: Lungs clear to auscultation bilaterally without any obvious rhonchi, wheezes, or rales. CARDIOVASCULAR: Regular rate and rhythm without any appreciable murmurs, gallops, or rubs. ABDOMEN: Soft, but diffusely tender across the right and left upper quadrants, but no rebound tenderness or guarding. EXTREMITIES: There is no cyanosis, clubbing or edema. NEUROLOGIC: The patient is alert and oriented times three. Cranial nerves II- XII are grossly intact. Facial features are symmetrical. Extraocular movements are within normal limits. LABORATORY: Admission CBC within normal limits with white count 5.8, no shift on differential. Chemistries show normal electrolytes with potassium 3.9, BUN 14, creatinine 0.64, glucose 89, calcium normal at 9.4, liver functions within normal limits. Amylase and lipase pending. Urinalysis showed just a trace amount of blood, otherwise, within normal limits. RADIOLOGY: On admission, abdominal x-ray showed nonspecific bowel gas pattern. Due to her diffuse abdominal discomfort, CT of the abdomen with contrast was completed and per radiologic interpretation there was moderate sized hiatal hernia containing a significant portion of the stomach along with severe constipation. Please final report for full details. ASSESSMENT: 1. Abdominal pain with history of diverticulosis, but no obvious diverticulitis noted on current CT scan with the patient showing severe constipation, likely secondary to ongoing pain management regimen from previous T11-T12 compression fractures in the past and lumbar radiculopathies. 2. Hypertension. 3. Anxiety/depression. 4. Osteoporosis. 5. Moderate dehydration, likely prerenal azotemia from poor oral intake. PLAN: The patient was directly admitted from Dr. Wilkes's office to assist in resolving of the patient's constipation. Dr. Wilkes is available to assist with care of the patient while in the hospital. Given that she has no other significant findings on CT, at this point we will utilize soapsuds enema to assist in resolving the constipation along with Milk of Magnesia and MiraLAX once the patient has shown sufficient results from the soapsuds enema and is tolerating well. We will utilize Tylenol for pain control and limit narcotics to further decrease any episodes of constipation. She will be started on deep venous thrombosis prophylaxis as per protocol. Once her home medications have been updated and reviewed, we will re-start accordingly. Once soapsuds is in, if she does tolerate this, we will continue with Milk of Magnesia and MiraLAX tonight with repeat two view abdomen in the morning. We will anticipate length of stay to be two to three days with close clinical assistance from Dr. Wilkes. Once the patient is clinically improved, she will need close clinical followup in outpatient setting. Until then, we will continue to monitor the patient closely and treat appropriately. #[id number] [facility]
[2017-04-08] MEDS ORDERED: SODIUM CHLORIDE 0.9% (FLUSH) 10 ML SYG IV PRN (16:59)
[2017-04-08] MEDS ORDERED: MAGNESIUM HYDROXIDE 30 ML UD PO PRN (16:59)
[2017-04-08] MEDS ORDERED: ACETAMINOPHEN 325 MG TAB PO PRN (16:59)
[2017-04-08] MEDS ORDERED: ALUM & MAG HYDROX-SIMETHICONE 30 ML UD PO PRN (16:59)
--- NOTE | 2017-04-08 19:13 | RAD ---
CLINICAL HISTORY:abdominal pain. :1930. Sex:Female. TECHNIQUE: Supine and upright views of the abdomen. There is no intestinal dilatation. There are some nonspecific air-fluid levels. There is no mass. There is no free air. There is no opaque calculus. Changes of vertebroplasty along the lower thoracic spine. There are changes of a left hip arthroplasty. The bones are demineralized. The visible lung bases are clear IMPRESSION: Nonspecific bowel gas pattern Electronically signed by: Deon Patel MD 04/08/2017 7:11 PM CDT Workstation: [id number]
[2017-04-08] MEDS ORDERED: MAGNESIUM HYDROXIDE 30 ML UD PO ONE (19:53)
[2017-04-08] MEDS ORDERED: POLYETHYLENE GLYCOL 3350 17 GM PCKT PO ONE (19:53)
[2017-04-08] MEDS: KCL 20MEQ/0.45% NS 1,000 ML IVS PRN (20:00)
[2017-04-08] MEDS: IV SET AND CAP CHANGE INJ INJ SCH (20:42)
[2017-04-08] MEDS: SODIUM CHLORIDE 0.9% (FLUSH) 10 ML SYG IV SCH (20:45)
--- NOTE | 2017-04-08 21:09 | CT ---
PROCEDURE: Abdomen and pelvis w/Contrast Clinical History: worsening abdominal pain Indication: Same as above Comparison: None Technique: CT of the abdomen and pelvis was done with intravenous contrast followed by orthogonal reconstructions. Oral contrast was not given for the study. The patient was injected with contrast intravenously, without any documented immediate adverse reactions. This exam was performed according to our departmental dose-optimization program, which includes automated exposure control, adjustment of the mA and/or KV according to the patient's size and/or use of iterative reconstruction technique. Findings: Images through the lung bases do not show any focal infiltrates or pleural effusions. There is mild discoid atelectasis in the lingula of the left lung and the bilateral lower lobes of the lung. There is a moderate size hiatal hernia containing significant portion of the stomach. There is severe constipation. The gallbladder, pancreas, spleen and the bilateral adrenal glands appear unremarkable. A subcentimeter benign cyst is seen in the right lobe of the liver. The bilateral kidneys enhance in a normal fashion, without any evidence of hydronephrosis. Multiple subcentimeter benign cortical cysts are seen in the bilateral kidneys The visualized small bowel and large appear unremarkable, without any evidence of small bowel obstruction or bowel wall thickening or CT evidence of acute diverticulitis in the visualized segments of the large bowel. There is no pathological lymphadenopathy in the visualized retroperitoneum or the abdomen . There is no evidence of free fluid or free air in the visualized portions of the abdomen . There is no clinically significant abdominal aortic aneurysm in the visualized portion of the abdominal aorta. There is no clinically significant ventral hernia. There is ORIF in the region of the left hip joint. There is presence of vertebral body augmentation at few levels in the visualized lower thoracic spine. Mild to moderate compression deformity of the L2 vertebra is also noted, age indeterminate Impression: There is a moderate size hiatal hernia containing significant portion of the stomach. There is severe constipation. There is presence of vertebral body augmentation at few levels in the visualized lower thoracic spine. Mild to moderate compression deformity of the L2 vertebra is also noted, age indeterminate Electronically signed by: Dion Banerjee MD 04/08/2017 9:08 PM CDT Workstation: [id number]
[2017-04-09] MEDS: SODIUM CHLORIDE 0.9% (FLUSH) 10 ML SYG IV SCH ×2 (08:46→20:28)
[2017-04-09] MEDS: KCL 20MEQ/0.45% NS 1,000 ML IVS PRN ×2 (08:55→21:53)
[2017-04-09] MEDS: ONDANSETRON INJ 4 MG/2 ML VIAL IV PRN (08:58)
--- NOTE | 2017-04-09 09:46 | RAD ---
Abdomen two views INDICATION: Constipation IMPRESSION: Lung bases appear clear. There appears to be a hiatal hernia behind the heart. Two levels of previous thoracic vertebral augmentation. Increased density in the bladder consistent with contrast. Status post left hip arthroplasty. Bones are osteopenic/osteoporotic. No evidence of large fecal impaction. No evidence of bowel obstruction. Scattered air throughout the bowel. No evidence of free air on the upright film. Lucencies are noted along the lateral margins of the abdominal cavity probably peritoneal fat. Electronically signed by: Jaquan Mayorga MD 04/09/2017 9:44 AM CDT
[2017-04-09] MEDS ORDERED: POLYETHYLENE GLYCOL 3350 17 GM PCKT ONE (09:55)
[2017-04-09] MEDS: traMADol HCL 50 MG TAB PO PRN (09:57)
[2017-04-09] MEDS: PREGABALIN 25 MG CAP PO SCH ×2 (09:57→20:28)
[2017-04-09] MEDS: CITALOPRAM HBR 20 MG TAB PO SCH (09:57)
[2017-04-09] MEDS: ASPIRIN (CHEWABLE) 81 MG TAB PO SCH (09:58)
[2017-04-09] MEDS: ALPRAZolam 0.25 MG TAB PO PRN ×2 (09:58→20:33)
[2017-04-09] MEDS: POLYETHYLENE GLYCOL 3350 17 GM PCKT PO SCH ×2 (10:00→12:17)
--- NOTE | 2017-04-09 19:34 | PN ---
DATE: 04/09/17 SUPERVISING PHYSICIAN: Rafael Peña M.D. SUBJECTIVE: The patient did have several bowel movements last night due to Milk of Magnesia and was feeling a little bit better this morning. She was able to eat breakfast and as noted she has had some decrease in her abdominal pain. She remains afebrile. OBJECTIVE: VITAL SIGNS: T max 97.9, pulse 64, blood pressure 131/72, respirations 16, satting 95% on room air. I's and O's show 1340 in, 400 out with the patient having 3 bowel movements since admission. Weight is 57.4 kg. CHEST: Lungs are clear to auscultation bilaterally. HEART: Regular rate and rhythm. ABDOMEN: Much softer today, less tender. Still has some tenderness noted to the left side. Bowel sounds are present. EXTREMITIES: No clubbing, cyanosis or edema. NEUROLOGIC: She is alert and oriented times three. LABORATORY: No laboratory values were repeated today. RADIOLOGY: Two view abdominal x-ray series this morning per radiology interpretation showed no evidence of large fecal impaction or evidence of bowel obstruction. There is note of scattered air throughout the bowel with no evidence of free air on the upright film. ASSESSMENT: 1. Abdominal pain with history of diverticulosis but no obvious diverticulitis on CT scan with the patient showing severe constipation likely secondary to ongoing pain management from the previous T11-T12 compression fractures in the past and lumbar radiculopathies. 2. Hypertension. 3. Anxiety and depression. 4. Osteoporosis. 5. Moderate dehydration likely prerenal azotemia with poor oral intake contributing to some of her ongoing obstipation. PLAN: Will continue to follow the patient along with Dr. Wilkes. She was given a dose of Milk of Magnesia and MiraLAX, and had good results last night and this morning. She will be given an additional dose of MiraLax as well as Milk of Magnesia. She does remain on IV fluids of normal saline with 20 of potassium at 80 an hour. She continues to have decreased oral intake. She is tolerating a diet but eats very small portions at any given time. Will encourage ambulation today to assist with increasing bowel movements and again monitor closely and treat appropriately. Anticipate discharge hopefully tomorrow or Friday. Until then, will monitor clinically and once discharged the patient will need close clinical followup again with both Dr. Wilkes and Dr. Urrutia, her primary care physician. [facility][id number] [facility]
[2017-04-10] MEDS: traMADol HCL 50 MG TAB PO PRN ×2 (06:08→16:59)
--- NOTE | 2017-04-10 07:32 | RAD ---
Procedure: XR ABDOMEN 2 VIEWS SUPINE ERECT Exam Date: 04/10/2017 Ordering Provider: Diogenes Dupree Clinical Indication: constipation Comparison: 04/09/2017 Findings: Nonobstructive bowel gas pattern. Gas seen distally in the rectum. There is no pneumoperitoneum. There are no suspicious calcifications. There is no acute skeletal abnormality. Multilevel vertebral body augmentation. Left hip arthroplasty. Impression: 1. Nonobstructive bowel gas pattern. Electronically signed by: Elijah Simms MD 04/10/2017 7:30 AM CDT
[2017-04-10] MEDS: PREGABALIN 25 MG CAP PO SCH ×2 (09:09→21:29)
[2017-04-10] MEDS: POLYETHYLENE GLYCOL 3350 17 GM PCKT PO SCH (09:09)
[2017-04-10] MEDS: CITALOPRAM HBR 20 MG TAB PO SCH (09:09)
[2017-04-10] MEDS: ASPIRIN (CHEWABLE) 81 MG TAB PO SCH (09:09)
[2017-04-10] MEDS: SODIUM CHLORIDE 0.9% (FLUSH) 10 ML SYG IV SCH (09:10)
[2017-04-10] MEDS: ONDANSETRON INJ 4 MG/2 ML VIAL IV PRN (10:06)
[2017-04-10] MEDS: ALPRAZolam 0.25 MG TAB PO PRN (10:07)
[2017-04-10] MEDS: KCL 20MEQ/0.45% NS 1,000 ML IVS PRN (11:48)
[2017-04-10] MEDS: NON-FORMULARY MEDICATION 1 EA MIS (Linaclotide [Linzess] 72 MCG) PO SCH (13:13)
--- NOTE | 2017-04-10 16:30 | PN ---
DATE: 04/10/17 SUBJECTIVE: The patient is resting in bed. When conversing with Dr. Wilkes earlier today, she stated that she felt a little worse today compared to yesterday. She did have some good bowel movements yesterday. She has a decreased sensation of her rectal sphincter. She states that the bowel movements come out sometimes and she does not even know it. She feels that some of the sensation decrease has happened since she had her kyphoplasties on her back. No significant pain in her back at this time. OBJECTIVE: Afebrile, pulse 72, blood pressure 113/64, pulse oximetry 93% room air. Weight is 67.7 kilos. The patient is awake, alert and communicative. Having some difficulty getting up out of bed and will have Physical Therapy evaluate to see if it is safe for her to care for herself at home. ABDOMEN: Has fairly good, active bowel tones. Slightly distended. Slight tenderness noted generally. HEART: Tones regular. LUNGS: Clear. Abdominal x-ray performed today revealed nonspecific gas patterns with no evidence of obstructive findings. ASSESSMENT: 1. Abdominal pain with a previous history of diverticulosis yet no diverticulitis noted on CT scan. 2. Significant fecal impaction requiring management with Milk of Magnesia and introduction to Linzess medication low dose. 3. Hypertension. 4. Anxiety and depression. 5. Osteoporosis with kyphoplasty on 2 occasions recently. 6. Mild dehydration with prerenal azotemia showing some improvement. PLAN: The possibility of gastric outlet delayed emptying may be contributing to some of her feeling of filling quickly when eating to which some Reglan will be tried. Reglan will be low dose 5 mg before meals. Her antidepressive medicine will also be decreased, namely the Celexa from 40 mg to 20 mg daily. Her Tramadol will also be stopped because of its ability to interfere also with serotonin syndrome propagation. Will repeat some lab studies in the morning for review with Dr. Wilkes. Dr. Urrutia is sending over some samples of Linzess low dose 72 mg since we do not have it in our formulary. Physical Therapy will be requested to evaluate on the safety of the patient's ability to mobilize and care for herself at home with her who is also moderately disabled because of a stroke. Reevaluate in the morning. #[id number] [facility]
[2017-04-10] MEDS: METOCLOPRAMIDE HCL 5 MG TAB PO SCH (16:53)
[2017-04-11] MEDS: KCL 20MEQ/0.45% NS 1,000 ML IVS PRN ×2 (00:31→14:29)
[2017-04-11] MEDS: METOCLOPRAMIDE HCL 5 MG TAB PO SCH ×3 (06:22→17:39)
--- NOTE | 2017-04-11 07:23 | RAD ---
Procedure: XR ABDOMEN 2 VIEWS SUPINE ERECT Exam Date: 04/11/2017 Ordering Provider: RODRIGO HALL MD Clinical Indication: abd pain Comparison: 04/10/2017 Findings: Nonobstructive bowel gas pattern. Gas seen distally in the rectum. There is no pneumoperitoneum. There are no suspicious calcifications. There is no acute skeletal abnormality. Multilevel vertebral body augmentation. Left hip arthroplasty. Impression: 1. Stable exam with a nonobstructive bowel gas pattern. Electronically signed by: Elijah Simms MD 04/11/2017 7:22 AM CDT
[2017-04-11] MEDS: ASPIRIN (CHEWABLE) 81 MG TAB PO SCH (08:58)
[2017-04-11] MEDS: traMADol HCL 50 MG TAB PO PRN ×2 (08:58→18:00)
[2017-04-11] MEDS: PREGABALIN 25 MG CAP PO SCH ×2 (08:59→21:01)
[2017-04-11] MEDS: CITALOPRAM HBR 20 MG TAB PO SCH (09:00)
[2017-04-11] MEDS: NON-FORMULARY MEDICATION 1 EA MIS (Linaclotide [Linzess] 72 MCG) PO SCH (09:00)
[2017-04-11] MEDS: ALPRAZolam 0.25 MG TAB PO PRN (09:00)
[2017-04-11] MEDS: POLYETHYLENE GLYCOL 3350 17 GM PCKT PO SCH (09:12)
[2017-04-11] MEDS ORDERED: BISACODYL SUPPOSITORY 10 MG PR ONE (09:36)
[2017-04-11] MEDS ORDERED: MAGNESIUM HYDROXIDE 30 ML UD PO ONE (16:55)
--- NOTE | 2017-04-11 17:32 | PN ---
DATE: 04/11/17 SUBJECTIVE: The patient was having increasing abdominal discomfort, distention and fullness earlier today. She was seen along with Dr. Wilkes. The patient was complaining of pain with some radiation to her back. She was given a suppository about noon and had a fairly good bowel movement, but it did not significantly relieve the discomfort of the distention or the increased tympani. OBJECTIVE: Of note is that last evening I requested the nursing staff to perform a test of the patient's rectal sphincter and its functioning. When a small finger was introduced into the rectum, the patient was baring down but there was apparently no constrictive pressure upon the finger suggesting a weakness in the sphincter muscle itself. A sharp prick sensation was tested in the area around the anus and there was no pin prick sensation suggesting a sacral nerve deficiency at this level. Whether this was related or unrelated to the recent kyphoplasty at this time, no preoperative specific evaluation and documentation is readily available. ABDOMEN: Slightly distended, soft with some tenderness more on the right upper quadrant than the left. Bowel tones are present. The patient, instead of having enemas, was requesting another dose of Milk of Magnesia with continued nursing support because of the patient' s incontinent condition and her requiring diapers for the first time. ASSESSMENT: 1. Abdominal pain with a previous history of diverticulosis yet no diverticulitis noted at this time on CT scan. 2. Significant fecal impaction of a severe nature requiring Milk of Magnesia and introduced to Linzess medication low dose to see if it will assist with the constipation problem. 3. Hypertension. 4. Anxiety and depression. 5. Osteoporosis with kyphoplasty on 2 occasions recently of the thoracic spine. 6. Mild dehydration with prerenal azotemia showing some improvement. 7. Possible gastric outlet delay with a trial of Reglan. PLAN: Will decrease her Celexa in an effort to try to prevent side effects such as acquired serotonin syndrome. Continue to observe the Linzess with another dose being given on a daily basis with close followup with Dr. Urrutia when clinically stable. Discussed with Dr. Wilkes who wishes us to try a larger dose of Milk of Magnesia this evening and we will reevaluate in the morning, and then anticipate home with the family for continued efforts to prevent this from building up again. #[id number] MTDD
[2017-04-11] MEDS: IV SET AND CAP CHANGE INJ INJ SCH (17:40)
[2017-04-12] MEDS: KCL 20MEQ/0.45% NS 1,000 ML IVS PRN (03:00)
[2017-04-12] MEDS: ALPRAZolam 0.25 MG TAB PO PRN (05:22)
[2017-04-12 05:49] VITALS: BP 131/76; TEMP 98.3; O2SAT 94
[2017-04-12] MEDS: METOCLOPRAMIDE HCL 5 MG TAB PO SCH ×2 (06:03→11:58)
[2017-04-12] MEDS: POLYETHYLENE GLYCOL 3350 17 GM PCKT PO SCH (08:29)
[2017-04-12] MEDS: PREGABALIN 25 MG CAP PO SCH (08:30)
[2017-04-12] MEDS: CITALOPRAM HBR 20 MG TAB PO SCH (08:30)
[2017-04-12] MEDS: NON-FORMULARY MEDICATION 1 EA MIS (Linaclotide [Linzess] 72 MCG) PO SCH (08:30)
[2017-04-12] MEDS: ASPIRIN (CHEWABLE) 81 MG TAB PO SCH (08:31)
[2017-04-12] MEDS ORDERED: SODIUM CHLORIDE 0.9% (FLUSH) 10 ML SYG IV SCH (21:00)
--- NOTE | 2017-04-13 18:05 | DS ---
SUPERVISING PHYSICIAN: Derek Robbins M.D. DISCHARGE DIAGNOSIS: 1. Abdominal pain with a previous history of diverticulosis but no diverticulitis noted on the present CT scan. 2. Significant fecal impaction of a severe nature. She has required multiple doses of Milk of Magnesia as well as started on Linzess to assist with her chronic constipation. 3. Hypertension. 4. Anxiety and depression. 5. Osteoporosis with calcium plus D on 2 occasions recently of the thoracic spine. 6. Mild dehydration with prerenal azotemia showing some improvement. 7. Possible gastric outlet delay with a trial of Reglan. HISTORY OF PRESENT ILLNESS: This is an 86 year-old female patient who is a patient of Dr. Bray who had a recent T12 compression fracture kyphoplasty secondary to an acute injury in February of 2017. The procedure was done approximately 2 weeks ago. Since that injury in February, she has had some issues with chronic constipation. She has been trying [id number] remedies of MiraLAX and Milk of Magnesia. She was in Dr. Wilkes's office on the day of admission and was seen in the office. She was initially started on Linzess as well as having MiraLAX daily, but given the patient's significant co- morbidities and ongoing abdominal pains, she was admitted to the hospital for close monitoring and treatment of the severe constipation. HOSPITAL COURSE: A CT was done on the patient that showed no significant findings. She was given soap suds enemas as well as Milk of Magnesia and MiraLAX. She had a small amount of results and then she received additionally several doses of Milk of Magnesia over the next several days. There were also concerns that she had some gastric outlet delay and was tried on a trial of Reglan. Due to the concerns for serotonin syndrome with the addition of Reglan , her Celexa was decreased to 20 mg. She has had no signs or symptoms of serotonin symptoms and the Reglan improved her abdominal symptoms. At this point, she should be discharged home in stable condition. DISCHARGE PLAN: The patient will be discharged home in stable condition. She is being followed with [facility] and they will continue as her home health providers. It is to be noted that during her hospital stay, she had complained of her inability to feel when she has a bowel movement and nursing staff actually did an exam of her rectal sphincter. Per nursing staff, when a small finger was introduced into the rectum, the patient was bearing down and there was apparently no constrictive pressure upon the finger suggesting a weakness in the sphincter muscle itself. A sharp prick sensation was tested in the area around the anus and there was no pin prick sensation. Whether this was related or unrelated to the recent kyphoplasty, may need further evaluation when she follows up with Dr. Urrutia. She will also be discharged at the lower dose of Celexa which is 20 mg daily. I will also give her a 1 month supply of low dose Reglan to be taken at a.c. and h.s. She has also been given 72 mg Linzess samples. She has not been taking her MiraLAX daily, but she has been instructed to take 17 grams of MiraLAX daily. She has a close followup with Dr. Urrutia on 04/23. If she is to have any further problems, she can contact Dr. Urrutia' office, Dr. Wilkes's office or return to the hospital. Dr. Robbins is the collaborating physician and available for consultation. #[id number] MTDD
== END 2017-04-12 12:50 | disposition home health service (06) | DRG 392 ==
LOC: MS 16:34
PROVIDERS: ADMIT Nurse Practitioner Family; ATTEND Nurse Practitioner Acute Care
PROC: BW21YZZ Computerized Tomography (CT Scan) of Abdomen and Pelvis using Other Contrast (ICD-10-PCS; principal; 2017-04-08)
DX: K59.03 Drug induced constipation (principal); T40.605A Adverse effect of unspecified narcotics, initial encounter; I10 Essential (primary) hypertension; F41.9 Anxiety disorder, unspecified; F32.9 Major depressive disorder, single episode, unspecified; M81.0 Age-related osteoporosis without current pathological fracture; E86.0 Dehydration; K30 Functional dyspepsia; E78.5 Hyperlipidemia, unspecified; K57.30 Diverticulosis of large intestine without perforation or abscess without bleeding; M54.16 Radiculopathy, lumbar region; K44.9 Diaphragmatic hernia without obstruction or gangrene; J30.2 Other seasonal allergic rhinitis; Z87.81 Personal history of (healed) traumatic fracture; Z79.82 Long term (current) use of aspirin; Z79.899 Other long term (current) drug therapy; Z88.8 Allergy status to other drugs, medicaments and biological substances; Z88.6 Allergy status to analgesic agent; Z88.0 Allergy status to penicillin; Z87.891 Personal history of nicotine dependence; Z98.890 Other specified postprocedural states; Y92.009 Unspecified place in unspecified non-institutional (private) residence as the place of occurrence of the external cause

== ENCOUNTER → 2017-04-29 | Outpatient (CLI) | payer MEDICARE ==
--- NOTE | 2017-04-29 10:18 | MRI ---
EXAM DESCRIPTION: Thoracic Spine w/o Contrast CLINICAL HISTORY: 86 years, Female, COMPRESSION FX back pain, multiple compression fractures with vertebral body augmentation at several levels in the thoracolumbar spine. COMPARISON: March 13, 2017 TECHNIQUE: Multiplanar multi sequence images of the thoracic spine were obtained without gadolinium contrast. FINDINGS: Again seen is advanced compression deformity at T9 with previous vertebral body augmentation at the same level and mild retropulsion, stable from March 13, 2017. There is moderate compression deformity at T12 with vertebral body augmentation and mild retropulsion also at this level, stable. There is an old L2 compression fracture, also stable. There is new compression of the T11 vertebral body resulting in approximately 50% loss of vertebral body height with bone marrow edema at the same level but no significant retropulsion. No additional vertebral body compression fracture is seen. There is disc desiccation at multiple levels in the thoracic spine without significant posterior disc bulging or facet joint degeneration. There is a round low T1 and intermediate T2 signal lesions appear pole left kidney stable from April 08, 2017 and probably representing a cyst. The paraspinal soft tissues are otherwise unremarkable. There is a moderate to large size hiatal hernia. IMPRESSION: New T11 compression fracture resulting in approximately 50% loss of anterior vertebral body height and no significant retropulsion. Multiple old lower thoracic and lumbar vertebral body compression fractures with previous vertebral body augmentation at T9 and T12. Moderate to large hiatal hernia. Probable small left renal cyst, stable from April 08, 2017 and also not significantly changed from an older CT performed in December,. If relevant, ultrasound could be performed for confirmation. Electronically signed by: Jarrod Fajardo MD 04/29/2017 10:16 AM CDT Workstation: [id number]
== END ==
LOC: MRI 06:51
DX: S22.080S Wedge compression fracture of T11-T12 vertebra, sequela (principal)

== ENCOUNTER → 2017-07-07 | Outpatient (CLI) | payer MEDICARE | END | disposition home or self-care (01) | LOC: BFHH 10:18 | PROVIDERS: ATTEND Family Medicine | DX: I10 Essential (primary) hypertension (principal); E78.5 Hyperlipidemia, unspecified; E55.9 Vitamin D deficiency, unspecified; D51.0 Vitamin B12 deficiency anemia due to intrinsic factor deficiency ==

== ENCOUNTER → 2017-08-05 | Outpatient (CLI) | payer MEDICARE | END | disposition home or self-care (01) | LOC: BFHH 10:01 | PROVIDERS: ATTEND Family Medicine | DX: E55.9 Vitamin D deficiency, unspecified (principal) ==

== ENCOUNTER 2017-09-24 14:49 | Observation (INO) | payer MEDICARE ==
[2017-09-24] MEDS ORDERED: fentaNYL CITRATE INJ 50 MCG/ML AMP IV ONE (16:00)
--- NOTE | 2017-09-24 16:30 | ED.PDOC ---
History of Present Illness - General Chief Complaint: Trauma Stated Complaint: fell and hit left side of hide Time Seen by Provider: 09/24/17 16:24 Source: patient, family Exam Limitations: no limitations - History of Present Illness Initial Comments: Maddy Nguyen 87 y/o female stated as she was going down the stair after she had her hair done at her hairdresser she missed a step and fell on her left side head,chest,left hip hitting the concrete stairstep then ems was called .She was given Fentanyl 50 mcg by ems with severe pain on his ribs and leg left side after incident. Occurred: just prior to arrival Severity: severe Injuries/Pain Location: head, pelvis - left side, lower extremity Reason for Fall: slipped, other - missed a step Loss of Consciousness: no loss of consciousness Improving Factors: nothing Worsening Factors: movement Associated Symptoms (Fall): other - pain Allergies/Adverse Reactions: Allergies Diphenhydramine [From Benadryl] Allergy (Verified 03/02/17 04:42) Vomitting Meperidine [From Demerol HCl] Allergy (Verified 03/02/17 04:42) Amoxicillin [From Amoxil] Adverse Reaction (Verified 03/02/17 04:42) Calcitonin [From Miacalcin] Adverse Reaction (Verified 03/02/17 04:42) CI Pigment Blue 63 [From Bystolic] Adverse Reaction (Verified 03/02/17 04:42) Headache Escitalopram [From Lexapro] Adverse Reaction (Verified 03/02/17 04:42) Headache Nebivolol [From Bystolic] Adverse Reaction (Verified 03/02/17 04:42) Headache Phenol [From Forteo] Adverse Reaction (Verified 03/02/17 04:42) Raloxifene [From Evista] Adverse Reaction (Verified 03/02/17 04:42) Risedronate [From Actonel] Adverse Reaction (Verified 03/02/17 04:42) Sorbitan [From Bystolic] Adverse Reaction (Verified 03/02/17 04:42) Headache Teriparatide [From Forteo] Adverse Reaction (Verified 03/02/17 04:42) Yellow Dye [From Bystolic] Adverse Reaction (Verified 03/02/17 04:42) Headache Home Medications: Ambulatory Orders ALPRAZolam [Xanax] 0.25 mg PO BID PRN 10/03/14 Pregabalin [Lyrica] 50 mg PO BID 10/03/14 Aspirin [Aspirin Childrens] 81 mg PO DAILY 04/08/17 Tramadol HCl 50 mg PO Q6HRS PRN 04/08/17 Linaclotide [Linzess] 72 mcg PO DAILY 04/10/17 Citalopram Hydrobromide [Celexa] 20 mg PO DAILY #30 tablet 04/12/17 Metoclopramide Tab [Reglan Tab] 5 mg PO AC #120 tablet 04/12/17 Polyethylene Glycol 3350 [Miralax] 17 gm PO DAILY #0 04/12/17 Review of Systems - Review of Systems Constitutional: States: no symptoms reported EENTM: States: no symptoms reported Respiratory: States: no symptoms reported Cardiology: States: no symptoms reported Gastrointestinal/Abdominal: States: no symptoms reported Genitourinary: States: no symptoms reported Musculoskeletal: States: see HPI Skin: States: no symptoms reported Past Medical History (General) - Patient Medical History Hx Seizures: No Hx Stroke: No Hx Dementia: No Hx Asthma: No Hx of COPD: No Hx Cardiac Disorders: No Hx Congestive Heart Failure: No Hx Pacemaker: No Hx Hypertension: Yes Hx Thyroid Disease: No Hx Diabetes: No Hx Gastroesophageal Reflux: No Hx Renal Disease: No Hx Cancer: No Hx of HIV: No Hx Hepatitis C: No Hx MRSA: No Surgical History: other - left hip prosthesis,elbow,hysterectomy,kyphoplasty - Vaccination History Hx Tetanus, Diphtheria Vaccination: No Hx Influenza Vaccination: No Hx Pneumococcal Vaccination: No - Social History Hx Tobacco Use: Yes Hx Chewing Tobacco Use: No Hx Alcohol Use: No Hx Substance Use: No Hx Substance Use Treatment: No Hx Depression: No Hx Physical Abuse: No Hx Emotional Abuse: No Hx Suspected Abuse: No - Activities of Daily Living Patient Lives Alone: No Grooming Ability: Independent Eating (Feeding) Ability: Independent Toileting Ability: Independent - Female History Patient : No Physical Exam - Physical Exam General Appearance: Alert, Anxious, No apparent distress Head Injury: ecchymosis - scalp swelling left side, swelling - scalp Eye Exam: bilateral normal ENT Exam: hearing grossly normal, no evidence of ENT injury, no dental injury Peripheral Pulses: radial,right: 2+, radial,left: 2+ Cardiovascular/Respiratory: regular rate, rhythm, no M/R/G, normal peripheral pulses, normal breath sounds, other - pain lower ribcage left Gastrointestinal/Abdominal: normal bowel sounds, non tender, soft Back Exam: no CVA tenderness, no vertebral tenderness Extremity Exam: pain with movement - left leg, tenderness - left thigh Neurologic: no motor/sensory deficits, alert, oriented x 3 Skin Exam: normal color, warm/dry - Charlotte Coma Score Best Eye Response (Joby): (4) open spontaneously Best Verbal Response (Charlotte): (5) oriented Best Motor Response (Charlotte): (6) obeys commands Progress - Progress Progress: 09/24/17 17:11 Last Vital Signs Temp 98.1 F 09/24/17 15:04 Pulse 84 09/24/17 15:04 Resp 20 09/24/17 15:04 BP 153/100 09/24/17 15:04 Pulse Ox 94 L 09/24/17 15:04 - Results/Orders Results/Orders: Laboratory Tests 09/24/17 09/24/17 09/24/17 16:50 16:59 16:59 WBC 7.3 RBC 4.18 L Hgb 12.6 Hct 38.1 MCV 91.2 MCH 30.1 MCHC 32.9 L RDW 15.4 H Plt Count 180 MPV 8.2 Absolute Neuts (auto) 4.60 Absolute Lymphs (auto) 2.30 Absolute Monos (auto) 0.30 Absolute Eos (auto) 0.00 Absolute Basos (auto) 0.00 Neutrophils % 63.1 Lymphocytes % 31.8 Monocytes % 4.2 Eosinophils % 0.5 L Basophils % 0.4 Sodium 138 Potassium 3.5 L Chloride 104 Carbon Dioxide 24 Anion Gap 13.5 BUN 21 H Creatinine 0.63 BUN/Creatinine Ratio 33.3 H Random Glucose 88 Serum Osmolality 278.1 Calcium 9.3 Total Bilirubin 0.5 AST 25 ALT 20 Alkaline Phosphatase 59 Serum Total Protein 6.8 Albumin 3.6 Globulin 3.2 Albumin/Globulin Ratio 1.1 Urine Color Yellow Urine Appearance Sl cloudy Urine pH 7.0 Ur Specific [place] 1.015 Urine Protein Negative Urine Glucose (UA) Negative Urine Ketones Trace Urine Blood Negative Urine Nitrite Positive H Urine Bilirubin Negative Urine Urobilinogen 0.2 Ur Leukocyte Esterase Small H Urine RBC 0-1 Urine WBC 0-1 Ur Epithelial Cells 1-3 Amorphous Sediment 1+ Urine Bacteria Rare - EKG/XRAY/CT Xray Comments: see reports CT Ordered: Yes - pelvis-pelvic fracture bilateral Departure - Departure Clinical Impression: Fall (on) (from) other stairs and steps, initial encounter, Rib pain on left side Fracture, pelvis closed Qualifiers: Encounter type: initial encounter Pelvic bone location: pubis Sublocation of pubis: other portion of pubis Laterality: left Qualified Code(s): S32.592A - Other specified fracture of left pubis, initial encounter for closed fracture Scalp contusion Qualifiers: Encounter type: initial encounter Qualified Code(s): S00.03XA - Contusion of scalp, initial encounter Time of Disposition: 23:13 Disposition: Admit Patient Condition: Fair Departure Forms: Patient Portal Self Enrollment Referrals: [place] Urrutia III, MD [Primary Care Provider] - 1-2 Weeks Home Medications: Ambulatory Orders ALPRAZolam [Xanax] 0.25 mg PO BID PRN 10/03/14 Pregabalin [Lyrica] 50 mg PO BID 10/03/14 Aspirin [Aspirin Childrens] 81 mg PO DAILY 04/08/17 Tramadol HCl 50 mg PO Q6HRS PRN 04/08/17 Linaclotide [Linzess] 72 mcg PO DAILY 04/10/17 Citalopram Hydrobromide [Celexa] 20 mg PO DAILY #30 tablet 04/12/17 Metoclopramide Tab [Reglan Tab] 5 mg PO AC #120 tablet 04/12/17 Polyethylene Glycol 3350 [Miralax] 17 gm PO DAILY #0 04/12/17 Decision To Admit - Decistion To Admit Decision to Admit Reason: Admit from ER Decision to Admit Date: 09/24/17 - D/W Diogenes Dupree-ANP/hospitalist Decision to Admit Time: 23:13
[2017-09-24] MEDS ORDERED: HYDROmorphone HCL INJ 2 MG/ML VIAL IV ONE ×2 (17:05→19:02)
--- NOTE | 2017-09-24 17:42 | CT ---
PROCEDURE: Head CLINICAL HISTORY: 87 years Female fall COMPARISON: None. TECHNIQUE: Contiguous axial CT images obtained through the brain without IV contrast. This exam was performed according to our department optimization program which includes automated exposure control, adjustment of the mA and/or kv according to patient size and/or use of iterative reconstruction technique. FINDINGS: The ventricles and sulci are within normal limits for the patient's age. No midline shift or mass effect. No masses identified. No acute intracranial hemorrhage. No fluid or significant mucosal thickening in the visualized paranasal sinuses. No depressed calvarial fractures. IMPRESSION: No acute intracranial abnormality is identified. Electronically signed by: Karen Pascual 09/24/2017 5:41 PM [employer]
--- NOTE | 2017-09-24 17:45 | CT ---
PROCEDURE: Cervical Spine CLINICAL HISTORY: 87 years Female fall COMPARISON: None. TECHNIQUE: Contiguous axial images obtained through the cervical spine without IV contrast. Coronal and sagittal reformatted images obtained. This exam was performed according to our department optimization program which includes automated exposure control, adjustment of the mA and/or kv according to patient size and/or use of iterative reconstruction technique. FINDINGS: There is bony demineralization. Anterolisthesis of C4 on C5. Narrowing of the disc interspaces at C4-5 C5-6 and C6-7. Partial fusion at C2-C3. Vascular calcification. Mild chronic wedging at C7. No acute fracture. Right neural foraminal stenosis at C3-4. Left neural foraminal stenosis at C4-5. Mild central canal and neural foraminal stenosis at C5-6 IMPRESSION: No acute cervical spinal fracture is identified. Electronically signed by: Karen Pascual 09/24/2017 5:44 PM [facility]
--- NOTE | 2017-09-24 18:09 | CT ---
PROCEDURE: Chest w/o Contrast CLINICAL HISTORY: 87 years Female fall COMPARISON: None. TECHNIQUE: Contiguous axial images obtained through the chest without IV contrast. Reformatted images obtained. This exam was performed according to our department optimization program which includes automated exposure control, adjustment of the mA and/or kv according to patient size and/or use of iterative reconstruction technique. FINDINGS: There is a moderate hiatal hernia. There is moderate to severe height loss of several lower thoracic vertebral bodies, acuity indeterminate. If there is high suspicion for acute fracture, MRI is recommended. There is severe compression of T9, mild compression of T10, moderate compression of T11, moderately severe compression of T12, and moderate compression of L2. At T11-12 there is a moderate posterior disc osteophyte complex causing moderate central canal narrowing. Several left rib fractures appear chronic. No definite acute fracture is seen. Coronary artery calcifications. No significant hilar or mediastinal lymph nodes. Atherosclerotic calcifications in the thoracic aorta. There is atelectasis and scar involving each lung. No consolidating infiltrates or pleural effusions. IMPRESSION: No definite acute abnormality. If there is high suspicion of acute thoracic spine fracture, MRI is recommended to detect edema. Electronically signed by: Thom Hansen 09/24/2017 6:08 PM [employer]
--- NOTE | 2017-09-24 18:10 | RAD ---
EXAM DESCRIPTION: Pelvis,2 or More Views CLINICAL HISTORY: 87 years Female fall COMPARISON: None. TECHNIQUE: Two AP views of the pelvis. FINDINGS: Bony demineralization. Left hip arthroplasty with anatomic alignment. Findings concerning for fracture extending through the body of the pubis and the superior pubic ramus on the left as well as the adjacent inferior pubic ramus. Deformity of the left sacral ala consistent with fracture. Recommend CT. Proximal right femur appears intact. IMPRESSION: Findings suggesting acute fractures involving the left sacral ala, left inferior pubic ramus and the left superior pubic ramus with extension into the body of the pubis. Recommend CT Electronically signed by: Karen Pascual 09/24/2017 6:09 PM [facility] [[email or web address]]
--- NOTE | 2017-09-24 18:11 | RAD ---
EXAM DESCRIPTION: Hip,Left CLINICAL HISTORY: 87 years Female fall COMPARISON: None. TECHNIQUE: LEFT hip, two views FINDINGS: Bony demineralization. Hip prosthesis with anatomic alignment. No evidence of periprosthetic fracture. Sacrum is obscured by overlying fecal material in bowel gas. Findings suggest nondisplaced fractures of the left inferior pubic ramus and the superior pubic ramus at the level of the symphysis. Recommend CT. IMPRESSION: Findings concerning for nondisplaced fracture involving the left superior and inferior pubic rami with some extension into the symphysis. Recommend CT Left hip arthroplasty with anatomic alignment Electronically signed by: Karen Pascual 09/24/2017 6:10 PM [facility]
--- NOTE | 2017-09-24 18:11 | RAD ---
EXAM DESCRIPTION: Femur,Left CLINICAL HISTORY: 87 years Female fall COMPARISON: None. TECHNIQUE: LEFT femur, two views FINDINGS: Bony demineralization. Hip prosthesis with anatomic alignment. No evidence of periprosthetic fracture. Sacrum is obscured by overlying fecal material in bowel gas. Findings suggest nondisplaced fractures of the left inferior pubic ramus and the superior pubic ramus at the level of the symphysis. Recommend CT. IMPRESSION: Findings concerning for nondisplaced fracture involving the left superior and inferior pubic rami with some extension into the symphysis. Recommend CT Moderate degenerative change at the knee Left hip arthroplasty with anatomic alignment Electronically signed by: Karen Pascual 09/24/2017 6:10 PM [facility]
[2017-09-24] MEDS ORDERED: HYDROmorphone HCL INJ 2 MG/ML VIAL ONE (18:57)
--- NOTE | 2017-09-24 21:38 | CT ---
EXAM DESCRIPTION: CTA Pelvis CLINICAL HISTORY: pain/fall COMPARISON: None Available TECHNIQUE: Contiguous axial images of the abdomen and pelvis and upper aspect of the lower extremities were obtained after the administration of intravenous contrast followed by reconstruction images.This exam was performed according to our departmental dose-optimization program, which includes automated exposure control, adjustment of the mA and/or kV according to patient size and/or use of iterative reconstruction technique. FINDINGS: Phillips catheter is in the urinary bladder which is collapsed. There is a moderately angulated fracture of the left inferior pubic ramus. Prosthetic left hip is present. Opacification of the pelvic vessels appears symmetric with no evidence of acute dissection, stenosis, or obstruction. There is a comminuted displaced fracture of the left pubis bone and left superior pubic ramus. There is a nondisplaced fracture of the right superior pubic ramus. IMPRESSION: No acute vascular abnormality. Multiple fractures of the pelvis. Electronically signed by: Thom Hansen 09/24/2017 9:37 PM [facility]
[2017-09-24] MEDS ORDERED: MAGNESIUM HYDROXIDE 30 ML UD PO PRN (23:20)
--- NOTE | 2017-09-24 23:59 | HP ---
SUPERVISING PHYSICIAN: Rafael Peña MD CHIEF COMPLAINT: Same level fall, pelvic fracture. HISTORY OF PRESENT ILLNESS: Ms. Nguyen is an 87-year-old, female patient who presented to the Emergency Room tonight via EMS after she sustained a same level fall. She had just finished getting her hair done and had stepped out of the building, missed a step, fell and landed on her left side, striking her head on the concrete resulting in severe left left sided hip pain and chest wall discomfort. In the Emergency Department, radiographic studies were completed including CT of the cervical spine, chest, head along with pelvic and hip x-rays. Findings on those x-rays indicated no acute abnormalities on the CT of the head, cervical spine, chest, but of note was finding on the pelvic x-rays suggesting acute fractures involving the left sacral ala, left inferior pubic ramus and left superior pubic ramus with extension into the body of the pubis. This was followed up with a CT of the pelvis and per radiologic interpretation there was note of comminuted, displaced fracture of the left pubis bone and left superior pubic ramus. There was a nondisplaced fracture of the right suprapubic ramus. There was also note of opacification of the pubic vessels that appeared to be symmetric with no evidence of acute dissection, stenosis or obstruction. Plain film x-ray of the hip showed a left hip arthroscopy was in anatomic alignment and as per previous findings concern for displaced fractures involving the left superior and inferior rami with extension into the symphysis. Laboratory studies showed hemoglobin 12.6, hematocrit 38.1, platelet count 180,000. Hemodynamically, she was stable with initially some hypertension noted secondary to pain with blood pressure 153/100 with saturation 94% on room air with heart rate of 84. Given the findings on CT , Dr. Bills, the Emergency Room physician, contacted Dr. Clark who recommended the patient be admitted with consultation in the morning as the findings on CT indicated that the acute injuries were nonoperative as well as given the patient 's advanced age. She was in the Emergency Room for a length of time, well over 8 hours, and remained hemodynamically stable and was able to get good pain control with Dilaudid and is now going to be admitted to the Medical/Surgical Floor for ongoing pain management and further orthopedic evaluation with anticipation of hopefully continuing with long-term rehab with transfer within the next one to two days, depending on additional findings. PAST MEDICAL HISTORY: 1. Chronic constipation. 2. Hypertension. 3. Hyperlipidemia. 4. Diverticulosis. 5. Osteoporosis. 6. Seasonal allergies. 7. Lumbar radiculopathy. PAST SURGICAL HISTORY: 1. T12 kyphoplasty. 2. Hysterectomy. 3. Open reduction and internal fixation of right elbow. 4. Open reduction and internal fixation of left hip. HOME MEDICATIONS: 1. Tramadol 50 mg q.6h. as needed for pain. 2. Lyrica 50 mg b.i.d. 3. MiraLAX 17 grams daily. 4. Reglan 5 mg a.c.. 5. Linzess 72 mcg daily. 6. Celexa 20 mg daily. 7. Aspirin 81 mg daily. 8. Xanax 0.25 mg b.i.d. as needed. ALLERGIES: BENADRYL, DEMEROL, AMOXICILLIN, CALCITONIN, PIGMENT BLUE FROM BYSTOLIC, LEXAPRO, BYSTOLIC, FORTEO, EVISTA, ACTONEL. FAMILY HISTORY: Unremarkable. SOCIAL HISTORY: The patient is retired, . She worked previously as a surgical nurse. She has smoked for two years many years previously, but is not currently a smoker. She drinks alcohol on a social basis, usually consumed one beer and one glass of wine daily. She denies any illicit drug use. REVIEW OF SYSTEMS: CONSTITUTIONAL: Denies any fevers, chills, or weight changes. HEENT: Denies sinus symptoms, ear pain, vision changes, sore throat. RESPIRATORY: Denies coughing, wheezing, shortness of breath, just some chest wall discomfort with deep inhalation. GASTROINTESTINAL: History of chronic abdominal pain with severe constipation on Linzess, but denies any nausea or vomiting. GENITOURINARY: Denies dysuria, hematuria, polyuria. MUSCULOSKELETAL: As noted in history of present illness, acute pelvic fracture with severe pain. NEUROLOGIC: She does not note any weakness, headaches or seizures. PHYSICAL EXAMINATION: VITAL SIGNS: On admission to the Medical/Surgical Floor, blood pressure 126/71. Heart rate 90. Saturation 92% on nasal cannula at 3 liters. Respirations 18. Temperature 97.5. Admission weight 63.3 kg. GENERAL: On admission to the Medical/Surgical Floor, the patient appears to be in some moderate pain, but is alert. HEENT: Ecchymotic area to the scalp on the left side just above the hairline with no obvious open injuries. Tympanic membranes clear bilaterally. Oropharynx is pink, moist without any lesions. There was no other obvious trauma to the head or neck. NECK: Supple, nontender with full range of motion. No jugular venous distention noted. CHEST: Lungs clear to auscultation bilaterally without any rhonchi, wheezes, or rales. On the chest wall, there was some notable discomfort overlying the left side of the chest on palpation, but no obvious trauma, no flail chest noted. No obvious deformities. CARDIOVASCULAR: Regular rate and rhythm without any appreciable murmurs, gallops, or rubs. BACK: No notable CVA tenderness, no paravertebral tenderness, no obvious deformities. No other obvious traumatic injuries identified. ABDOMEN: No obvious trauma. Soft, nontender with no rebound tenderness with positive bowel sounds. EXTREMITIES: She does move all extremities ad laron. She can move her left leg, but this results in pain. She has some tenderness over the left thigh, but no obvious deformities. Pulses distally were strong and equal with good capillary refill. No report of sensory deficits, paresthesias. NEUROLOGIC: The patient is alert and oriented times three. Facial features are symmetrical. Extraocular movements are within normal limits. There is no nystagmus noted. There are no notable neuro sensory deficit. INTEGUMENTARY: Skin was warm and dry with only one area of ecchymosis identified and that was on the scalp. No other areas of abrasion or other trauma or injuries identified on exam. LABORATORY: CBC showed white count 7,300 with hemoglobin 12.6, hematocrit 38.1 , platelet count 180,000, differential within normal limits. Chemistries showed just some mild hypokalemia with potassium 3.5. Otherwise, electrolytes were within normal limits. BUN was slightly elevated at 21 with creatinine 0.63. Liver functions all within normal limits. Urinary symptoms showed positive nitrites with small amount of leukocyte esterase with microscopic showing 0 to 1 RBCs, 0 to 1 WBCs, 1 to 3 epithelials, 1+ sediment, rare bacteria. MICROBIOLOGY: Urine culture pending. RADIOLOGY: She had multiple x-rays including CT of the spine, chest, and head which were without any acute findings per radiologic interpretation. Femur x- ray per radiologic interpretation showed again the same findings of the pelvic and hip, nondisplaced fracture involving the left superior and inferior pubic rami with extension to the symphysis, left hip arthroplasty was in anatomic alignment. She also had hip and pelvis x-ray and per radiologic interpretation there was note of acute fractures involving the left sacral, left inferior pubic ramus and left superior pubic ramus with extension into the body of the pubis with recommendation of CT for further evaluation. Pelvic CTA was completed at that point and per radiologic interpretation, there was note of moderate angulated fracture of the left inferior pubic ramus, opacification of pelvic vessels appeared to be symmetric with no evidence of acute dissection, stenosis or obstruction and there was a comminuted displaced fracture of the left pubis bone and left superior pubic ramus. There was a nondisplaced fracture of the right superior pubic ramus. On the chest CT, there were findings of a large hiatal hernia, but no definite acute abnormalities, but findings were indeterminate acuity for lower thoracic vertebral body fractures involving compression fracture of T9, T10 and T11 with L2 and at T11 to T12, there was moderate posterior disc osteophyte complex causing moderate central canal narrowing. There was also note of several left rib fractures that appeared chronic, but definite acute fractures. There were no consolidations, infiltrates or pleural effusions noted within the lungs. ASSESSMENT: 1. Same level fall resulting in acute injuries with multiple fractures of the pelvis involving the left inferior pubic ramus, comminuted displaced fracture of the left pubis bone and left superior pubic ramus with a nondisplaced fracture of the right superior pubic ramus. No evidence of vascular compromise with the patient being hemodynamically stable. 2. Multiple compression fractures involving thoracic and lumbar spine with the patient having a history of previous T11-T12 compression fractures and past lumbar radiculopathies. 3. Hypertension. 4. Mild dehydration. 5. Osteoporosis. 6. Anxiety and depression. 7. Closed head injury without mention of loss of consciousness secondary to same level fall. PLAN: After consultation with Dr. Clark, who has kindly agreed to see the patient in the morning, recommendation is the patient be admitted as this is a nonsurgical injury and is more apt to rehab. We will plan to provide pain medicine with Dilaudid as needed to keep the patient comfortable and she will be [id number] until she sees Dr. Clark. She will be on DVT prophylaxis once she is deemed to be hemodynamically stable without any evidence for any additional concerns for bleeding. I have ordered consultations both with physical therapy and outreach and education social worker, Chelsea, in anticipation of hopefully being able to transfer the patient to a rehab facility such as [facility] after Dr. Clark has had a chance to evaluate the patient and consultation with [facility] providers can be completed. In regard to her dehydration, I will give her some fluids tonight and recheck lab studies in the morning. I will also order a lumbar spine plain film for in the morning to further evaluate for any lumbar compression fractures or injuries. She will be on neuro checks as per protocol. We will anticipate length of stay to be anywhere from two to three days and hopefully discharging within the next 48 hours to a rehab facility such as [facility]. Until then, we will continue to monitor the patient closely and treat appropriately. #[id number] [facility]
[2017-09-25] MEDS: HYDROmorphone HCL INJ 2 MG/ML VIAL IV PRN ×2 (00:57→04:35)
[2017-09-25] MEDS: HYDROcodone 5MG/APAP 325MG 1 EA TAB PO PRN ×3 (00:57→10:49)
[2017-09-25] MEDS: IV SET AND CAP CHANGE INJ INJ SCH (01:06)
[2017-09-25] MEDS ORDERED: KCL 20MEQ/0.45% NS 1,000 ML IVS PRN (01:52)
[2017-09-25] MEDS ORDERED: cefTRIAXone SODIUM 1 GM VIAL ONE ×2 (02:42→15:01)
[2017-09-25] MEDS ORDERED: SODIUM CHL 0.9% 50ML MIN-BAG+ 50 ML IVPB ONE ×2 (02:42→15:01)
[2017-09-25] MEDS: cefTRIAXone SODIUM 1 GM in SODIUM CHL 0.9% 50ML MIN-BAG+ 50 ML IVPB SCH (02:44)
--- NOTE | 2017-09-25 11:07 | CONS ---
DATE OF CONSULTATION: 09/25/17 HISTORY OF PRESENT ILLNESS: Ms. Nguyen is an 87-year-old female with a history of a low energy fall from standing on the day of presentation. She had the acute onset of pain in the pelvic region at that time. She had no other injury associated with this and denies any neurologic symptoms. She has no significant radiation of pain. She points to the lower pubic region as being the only pain she is currently having. She presented to the Emergency Room and an evaluation was performed. She had CT scan that showed fracture of the pubic rami. She had no other identified fractures or injuries. She has no hemodynamic instability and that would not be expected with this low energy fall from standing. She was admitted for orthopedic consult. PAST MEDICAL HISTORY: 1. Constipation. 2. Hypertension. 3. Hyperlipidemia. 4. Diverticulosis. 5. Osteoporosis. 6. Lumbar radiculopathy. PAST SURGICAL HISTORY: 1. Kyphoplasty. 2. Hysterectomy. 3. Left hip hemiarthroplasty. 4. Open reduction and internal fixation of elbow. CURRENT MEDICATIONS: 1. Tramadol. 2. Lyrica. 3. MiraLAX. 4. Reglan. 5. Linzess. 6. Celexa. 7. Aspirin. 8. Xanax. ALLERGIES: BENADRYL, DEMEROL, AMOXICILLIN, CALCITONIN, BYSTOLIC, LEXAPRO, FORTEO, EVISTA, ACTONEL. SOCIAL HISTORY: The patient does not smoke. She drinks on rare occasions. FAMILY HISTORY: None pertinent to today's complaint. REVIEW OF SYSTEMS: Negative except as indicated in the History of Present Illness. PHYSICAL EXAMINATION: VITAL SIGNS: Blood pressure 120/62. Heart rate 84. Saturation 95% on nasal cannula. Respirations 17. Temperature 98. MENTAL STATUS: The patient is awake, alert, and is able to give a good history and participate in the physical. The patient is oriented to person, place and time. SKIN: Normal tone and turgor. HEENT: Normocephalic, atraumatic. Pupils equal, round and reactive. Mucosal membranes are moist. NECK: Normal range of motion. No thyromegaly, no lymphadenopathy. CHEST: Normal respiratory excursion. CARDIAC: Regular rate and rhythm. No murmurs, rubs or gallops. MUSCULOSKELETAL: The bilateral upper extremities show full active range of motion without pain. She has intact sensation. They are warm and well perfused. There is no deformity, nor is there outward sign of trauma. The right lower extremity shows no deformity. Sensation is intact. It is warm and well perfused. She has 5/5 strength in plantar flexion though she does have some discomfort with range of motion. Left lower extremity shows no deformity. Sensation is intact. Strength is 5/5 in plantar flexion. She does have obvious pain with palpation over the anterior pubic region of the pelvis. She has no instability noted with AP compression on the iliac wings. IMAGING: X-rays and CT scan show pubic rami fractures bilaterally. There is minimal displacement. There does not appear to be any involvement of the acetabula, nor in the sacra alar region. ASSESSMENT: 1. Bilateral pubic rami fractures. PLAN: The plan at this point is for her to be admitted for pain control and also for physical therapy. She may need placement until she starts to heal these up just from therapy and assistive standpoint. Once she is up and about, we will take x-rays to ensure no movement of the fractures, but we do not anticipate that just given the nature of the fractures and low energy mechanism. #[id number] [facility]
[2017-09-25] MEDS ORDERED: NITROGLYCERIN 0.4 MG 25 EA TAB SL PRN (14:13)
[2017-09-25] MEDS ORDERED: ASPIRIN TABLET 325 MG TAB PO ONE (14:15)
[2017-09-25] MEDS ORDERED: ONDANSETRON INJ 4 MG/2 ML VIAL IV PRN (15:03)
[2017-09-25] MEDS ORDERED: ALUM & MAG HYDROX-SIMETHICONE 30 ML UD PO ONE (15:15)
[2017-09-25] MEDS ORDERED: ASPIRIN TABLET 325 MG TAB ONE (16:11)
[2017-09-25] MEDS ORDERED: NITROGLYCERIN 0.4 MG 25 EA TAB SL ONE (16:11)
[2017-09-25] MEDS: ALPRAZolam 0.25 MG TAB PO PRN (16:15)
[2017-09-25] MEDS: MORPHINE SULFATE INJ 10 MG/ML VIAL IV PRN (16:16)
--- NOTE | 2017-09-25 18:08 | RAD ---
EXAM DESCRIPTION: Chest,1 View CLINICAL HISTORY: Left sided chest/rib pain s/p same level fall COMPARISON: 04/15/2016 FINDINGS: There are acute fractures of the left third and fourth ribs. No pneumothorax. There is also an acute fracture of the left sixth rib. Occult left fifth rib fracture is not excluded. There is a probable moderate hiatal hernia. Mass of other etiology at the medial inferior thorax is less likely. Mild atelectasis involves the lung bases. Apparent widening of the mediastinum could be related to low lung volumes and positioning. Heart size is mildly enlarged. IMPRESSION: Left rib fractures. Electronically signed by: Thom Hansen 09/25/2017 6:06 PM [facility]
--- NOTE | 2017-09-25 18:32 | PCM.CORE ---
Physician DVT/VTE - Nurse DVT Assessment & Total Each Risk Factor Represents 5 Points: Hip,Pelvis,leg Fx <1month Each Risk Factor Represents 3 Points: Age over 75 years Each Risk Factor Represents 1 Point: Medical PT at Bed Rest DVT Assessment Score: 9 - 5 or more Very High Risk Treatments: Early Ambulation *, Sequential Compression Device Pharmacological: Enoxaparin 40mg SQ Daily
[2017-09-25] MEDS ORDERED: ENOXAPARIN SODIUM 40 MG/0.4 ML SYG SUBCU SCH (19:00)
--- NOTE | 2017-09-25 19:01 | CT ---
EXAM DESCRIPTION: Lumbar Spine CLINICAL HISTORY: 87 years Female s/p fall COMPARISON: None. TECHNIQUE: Contiguous axial CT images obtained through the lumbar spine without IV contrast. Reformatted images obtained. This exam was performed according to our department optimization program which includes automated exposure control, adjustment of the mA and/or kv according to patient size and/or use of iterative reconstruction technique. FINDINGS: There are small bilateral pleural effusions. There is a small hiatal hernia. There is moderate height loss of L2, acuity indeterminate but not clearly acute and, based on imaging, more likely chronic. If there is high clinical index of suspicion and further imaging is desired MRI would be of benefit in detecting acute edema. Postoperative changes are present. There is no spondylolisthesis or spondylolysis. No definite acute fracture is seen. IMPRESSION: No definite acute bony abnormality identified. Electronically signed by: Thom Hansen 09/25/2017 6:59 PM [facility]
--- NOTE | 2017-09-25 19:07 | CT ---
EXAM DESCRIPTION: Thoracic Spine CLINICAL HISTORY: 87 years Female s/p fall COMPARISON: None. TECHNIQUE: Contiguous axial CT images obtained through the thoracic spine without IV contrast. Reformatted images obtained. This exam was performed according to our department optimization program which includes automated exposure control, adjustment of the mA and/or kv according to patient size and/or use of iterative reconstruction technique. FINDINGS: There is a moderate hiatal hernia. Small pleural effusions are seen with consolidation and atelectasis at each lung base. There are fractures of the left posterior 11th, 10th, ninth, eighth, seventh, and sixth ribs. No pneumothorax. There are extensive bony degenerative changes. There is postoperative change of T11, T10, and T8 consistent with vertebroplasty. There is significant height loss of each of these vertebral bodies. See lumbar spine CT from today for further detail. IMPRESSION: Left rib fractures. No definite thoracic spine acute fracture is seen. Electronically signed by: Thom Hansen 09/25/2017 7:06 PM [facility]
[2017-09-25] MEDS ORDERED: PREGABALIN 25 MG CAP ONE (19:22)
[2017-09-25] MEDS: SODIUM CHLORIDE 0.9% (FLUSH) 10 ML SYG IV SCH (20:35)
[2017-09-25] MEDS: PREGABALIN 25 MG CAP PO SCH (20:36)
--- NOTE | 2017-09-25 21:16 | PN ---
DATE: 09/25/17 SUPERVISING PHYSICIAN: Rafael Peña M.D. SUBJECTIVE: The patient is having a lot of pain in her chest mainly from multiple rib fractures. So far cardiac workup has been negative. The patient is being very stubborn in the aspects of allowing us to give her pain medications. She does remain afebrile and has been up with Physical Therapy once this morning, and was able to sit to the edge of the bed but had significant pain. OBJECTIVE: VITAL SIGNS: Temperature 98.6, pulse 70, blood pressure 117/80, respirations 17, satting 99% on room air. I's and O's show a negative balance of 232 with 220 in, 452 out. Weight is 63.3 kg. CHEST: Lung sounds are diminished throughout the bases bilaterally. No rhonchi or rales are noted at this time. There is no wheezing. The patient is apprehensive at taking deep breaths at times secondary to discomfort on the left side from multiple rib fractures. HEART: Regular rate and rhythm. ABDOMEN: Soft, non-tender. Positive bowel sounds. EXTREMITIES: No clubbing, cyanosis or edema. There are still old ecchymotic areas from previous falls on the left leg. NEUROLOGIC: She is alert and oriented times three. LABORATORY: This morning, white count was 8,300 and this afternoon after she started experiencing some chest pains a repeat CBC showed a stable hemoglobin with hemoglobin of 11.8 and hematocrit 35.8 with platelet count 139,000 with differential showing to be within normal limits with white count 11,700. Repeat chemistries shows just some mild hyponatremia at 134, BUN 19, creatinine 0.5. Initial cardiac enzymes showed a CPK that was elevated at 303 with a normal troponin at 0.04 with BNP at 221. MICROBIOLOGY: Preliminary urine culture shows gram-negative rods. RADIOLOGY: She has had multiple x-rays today. She had a thoracic and lumbar spine and per radiology interpretation on the thoracic spine there was note of left rib fractures but no definite thoracic spine acute fractures were seen. Noted on the lumbar spine was no definite acute bony abnormalities. She had a chest x-ray and per radiology interpretation there was note of multiple rib fractures of the left third, fourth and sixth rib with concerns for occult rib fractures not being able to exclude and review of the thoracic CT spine showed that she actually has fractures involving the left posterior eleventh, tenth, ninth, eighth, seventh and sixth ribs but no pneumothorax was identified. Again , there was note of postoperative changes of T11, T10 and T8 consistent with vertebroplasty but no significant height loss of each of these vertebral bodies. Please see those reports for full details. ASSESSMENT: 1. Acute bilateral pubic rami fracture secondary to same level fall with the patient showing to be hemodynamically stable. 2. Closed head injury with blunt force trauma from same level fall with no mention of loss of consciousness with a contusion to the left yazdanism area. 3. Multiple rib fractures involving the left posterior sixth, seventh, eighth , ninth, tenth and eleventh ribs with no pneumothorax identified. 4. Chest pains likely related to the multiple rib fractures on the left posterior aspect with the patient having a normal troponin and an EKG without any acute changes also with a history of a large hiatal hernia. 5. Previous compression fractures as identified on recent thoracic and lumbar CT involving T11, T10 and T8 with no new compression fractures identified with the patient having postoperative changes consistent with vertebroplasty. 6. Hypertension, stable. 7. Mild dehydration showing improvement with IV fluids. 8. Osteoporosis resulting in multiple bony fractures of the pelvis and thoracic ribs as noted above. 9. Anxiety and depression. 10. Urinary tract infection with gram-negative rods showing preliminary on urine cultures with the patient on parenteral antibiotics to include Rocephin. PLAN: The patient was able to get to the bedside this afternoon with Physical Therapy, but she had a significant amount of pain and currently has been worked up for acute chest pain, although seems to be related to the multiple rib fractures. Again, she is being very stubborn in regards to allowing us to give her pain medicine. She did have a little nausea with some [place], therefore we are going to change her to Tramadol and take into consideration of possibly giving her some Toradol for ongoing rib fractures and pain as she is showing no evidence of instability in regards to her hemodynamics. Will encourage bronchial hygiene with incentive spirometry to prevent complications such as pneumonia from atelectasis. In regards to urinary tract infection, she has been started on Rocephin. Will await final culture results to target antibiotic therapy as appropriate. Will start her on DVT prophylaxis with Lovenox. [facility] has been consulted and hopefully will be able to see the patient tomorrow in consultation with plans of hopefully being able to discharge to continuation of rehab at [facility]. Until discharge, will continue to monitor the patient closely and treat appropriately. #[id number] [facility]
[2017-09-26] MEDS ORDERED: cefTRIAXone SODIUM 1 GM VIAL ONE ×2 (01:33→20:03)
[2017-09-26] MEDS ORDERED: SODIUM CHL 0.9% 50ML MIN-BAG+ 50 ML IVPB ONE ×2 (01:33→20:03)
[2017-09-26] MEDS: cefTRIAXone SODIUM 1 GM in SODIUM CHL 0.9% 50ML MIN-BAG+ 50 ML IVPB SCH (01:39)
[2017-09-26] MEDS: ALPRAZolam 0.25 MG TAB PO PRN ×2 (01:40→13:39)
[2017-09-26] MEDS ORDERED: POLYETHYLENE GLYCOL 3350 17 GM PCKT ONE (07:49)
[2017-09-26] MEDS ORDERED: CITALOPRAM HBR 20 MG TAB ONE (07:49)
[2017-09-26] MEDS: PREGABALIN 25 MG CAP PO SCH ×2 (08:38→20:47)
[2017-09-26] MEDS: CITALOPRAM HBR 20 MG TAB PO SCH (08:38)
[2017-09-26] MEDS: POLYETHYLENE GLYCOL 3350 17 GM PCKT PO SCH (08:39)
[2017-09-26] MEDS: SODIUM CHLORIDE 0.9% (FLUSH) 10 ML SYG IV SCH ×2 (08:52→20:47)
[2017-09-26] MEDS: ACETAMINOPHEN 325 MG TAB PO PRN ×2 (10:32→16:37)
--- NOTE | 2017-09-26 11:30 | PN ---
DATE: 09/26/17 SUBJECTIVE: Ms. Nguyen is somewhat improved with regard to her pain, but we had a new CT scan of her lumbar spine as well as her thoracic spine. Although there do not appear to be any acute fractures of the vertebrae, she does have some fractures of the ribs on the left side posteriorly. This runs from the sixth to the eleventh ribs. Otherwise, there has been no change. PLAN: At this point, the plan is still for her to do some weight-bearing and we will get an x-ray at that time. [facility][id number] [facility]
--- NOTE | 2017-09-26 15:06 | RAD ---
EXAM DESCRIPTION: Pelvis CLINICAL HISTORY: recent plevic Fx, checking for stability after PT COMPARISON: CT of the pelvis September 24, 2017. X-ray Eva the pelvis September 24, 2017. FINDINGS: Single frontal view of the pelvis. No significant change in the fractures of the left superior and inferior pubic ramus at the pubic bone and the left sacral ala. Contralateral right side of the pelvis appears relatively intact. 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 IMPRESSION: Stable pelvic fractures. Electronically signed by: Brandon Dewitt MD 09/26/2017 3:05 PM [facility]
--- NOTE | 2017-09-26 19:36 | PN ---
DATE: 09/26/17 SUPERVISING PHYSICIAN: Rafael Peña M.D. SUBJECTIVE: The patient is much more alert today. She is more comfortable. She is requiring minimal pain medicine. She is actually able to get up with Physical Therapy today with some effort that did result in some discomfort, however she was able to take a few steps and did okay. She has had no nausea, vomiting or diarrhea and she remains afebrile. OBJECTIVE: VITAL SIGNS: Temperature 98.6, pulse 81, blood pressure 132/83, respirations 18, satting 93% on room air. I's and O's show a negative balance of 500 with 650 in, 1150 out. She has not yet had a bowel movement. CHEST: Lungs are clear bilaterally with no rhonchi, rales or wheezing noted. They are somewhat diminished towards the bases. She is very apprehensive to take a deep breath given the extensive rib fractures on the left. HEART: Regular rate and rhythm. ABDOMEN: Soft, non-tender with positive bowel sounds. EXTREMITIES: No clubbing, cyanosis or edema. Pulses distally are strong and equal bilaterally with capillary refill brisk. NEUROLOGIC: She is alert and oriented times three. LABORATORY: CBC today shows a normal white count at 8,700 with hemoglobin 11.8 , hematocrit 36.2, platelet count 129,000. Differential shows to be within normal limits. Chemistries show normal electrolytes with sodium 136, potassium 3.8, BUN 17, creatinine 0.57. Cardiac enzymes have returned to baseline normal status at 0.05 on troponins with CK showing some improvement down from 303 to 256. MICROBIOLOGY: Urine culture final results shows Enterobacter aerogenes resistant to Cefazolin, Cefoxitin and Macrobid with the patient having been on Rocephin since admission. RADIOLOGY: Repeat pelvis x-ray today after physical therapy and ambulation with a single view of the pelvis per radiology interpretation noted stable pelvis fractures. ASSESSMENT: 1. Acute bilateral pubic rami fracture secondary to same level fall with the patient showing continued hemodynamic stability and showing to be stable in regards to the fractures on repeat radiographic studies after ambulatory efforts and physical therapy. 2. Closed head injury with blunt force trauma same level fall with no mention of loss of consciousness with a contusion to the left cheondoism area with no acute findings on CT. 3. Multiple rib fractures involving the left posterior sixth through eleventh ribs with no pneumothorax identified. 4. Chest pains felt to be related to the multiple rib fractures on the left posterior aspect with the patient having a slightly elevated troponin but returning to baseline status with EKG showing to be no acute changes and also with the patient having a large hiatal hernia and no recurrence of chest pains except with deep inspiration efforts or palpation of the chest wall. 5. Previous compression fractures as identified on recent thoracic and lumbar CT involving T11, T10 and T8 with no new compression fractures identified with the patient having postoperative changes consistent with vertebroplasties. 6. Hypertension, stable. 7. Mild dehydration improved with IV fluids. 8. Osteoporosis resulting in multiple bony fractures of the pelvis, thoracic ribs as noted above. 9. Anxiety and depression possibly exacerbating the reported chest pains showing good response to Benzodiazepines. 10. Urinary tract infection with final culture results showing Enterobacter aerogenes sensitive to Rocephin with the patient having been on Rocephin since admission. PLAN: Will continue to work with the patient with physical therapy in efforts to get her to a rehab facility such as [facility]. [facility] is supposed to evaluate for possible admission. Will await that result and it may not be until Friday before we actually get results back. Until then, will continue to provide pain medicine and physical therapy, and continue parenteral antibiotics for underlying urinary tract infection. She has been started on DVT prophylaxis since she has been shown to be hemodynamically stable. We have encouraged deep breathing exercises and splinting in efforts to prevent any complications secondary to the multiple rib fractures. Until discharge, will continue to monitor closely and treat appropriately. #[id number] [facility]
[2017-09-26] MEDS: ENOXAPARIN SODIUM 40 MG/0.4 ML SYG SUBCU SCH (20:47)
[2017-09-27] MEDS: traMADol 37.5MG/APAP 325MG 1 EA TAB PO PRN ×3 (01:46→13:26)
[2017-09-27] MEDS: ALPRAZolam 0.25 MG TAB PO PRN ×2 (01:46→13:26)
[2017-09-27] MEDS: cefTRIAXone SODIUM 1 GM in SODIUM CHL 0.9% 50ML MIN-BAG+ 50 ML IVPB SCH (01:46)
[2017-09-27] MEDS: POLYETHYLENE GLYCOL 3350 17 GM PCKT PO SCH (08:05)
[2017-09-27] MEDS: PREGABALIN 25 MG CAP PO SCH ×2 (08:50→20:59)
[2017-09-27] MEDS: CITALOPRAM HBR 20 MG TAB PO SCH (08:50)
--- NOTE | 2017-09-27 17:18 | PN ---
DATE: 09/27/17 SUPERVISING PHYSICIAN: Rafael Peña M.D. SUBJECTIVE: Ms. Nguyen is in bed today. She is easily awakened, alert and oriented, and conversational. She states that she is somewhat more comfortable than yesterday, however she still is uncomfortable from time to time. She requires a minimal amount of pain medicine to keep her comfortable. She states that Physical Therapy worked with her today and she is particularly sore, but she was able to ambulate and take a few steps. She denies any nausea or vomiting. She does complain of some constipation and remains afebrile. OBJECTIVE: VITAL SIGNS: Temperature 98.1, pulse 78, blood pressure 116/70, respiratory rate 18, oxygen saturation 95% on 2 liters of nasal cannula oxygen. Intake and output: She had 1200 mL in, 1375 out. Weight today was 63.7 kg. There were no new labs to review and no radiological studies to review. Respiratory effort is even and unlabored. Breath sounds are clear to auscultation bilaterally with no rales, rhonchi or wheezing. She is apprehensive to take deep breaths and winces when instructed to do so. HEART: Sounds normal S1 and S2, regular rate and rhythm. No murmurs, clicks or rubs. Peripheral pulses are palpable bilaterally upper and lower extremities. There is no edema of the extremities. No clubbing or cyanosis noted. Brisk capillary refill of the fingers and toes bilaterally. ABDOMEN: Soft, non- tender. Bowel sounds are active in all four quadrants with no masses or organomegaly noted. NEUROLOGIC: She is alert and oriented times three. Mood and affect are normal. ASSESSMENT: 1. Acute bilateral pubic rami fracture secondary to same level fall with the patient showing continued hemodynamic stability and showing to be stable in regards to the fractures on repeat radiographic studies after ambulatory efforts and physical therapy. 2. Closed head injury with blunt force trauma same level fall with no mention of loss of consciousness with a contusion to the left baptism area with no acute findings on CT. 3. Multiple rib fractures involving the left posterior sixth through eleventh ribs with no pneumothorax identified. 4. Chest pains felt to be related to the multiple rib fractures on the left posterior aspect with the patient having a slightly elevated troponin but returning to baseline status with EKG showing to be no acute changes and also with the patient having a large hiatal hernia and no recurrence of chest pains except with deep inspiration efforts or palpation of the chest wall. 5. Previous compression fractures as identified on recent thoracic and lumbar CT involving T11, T10 and T8 with no new compression fractures identified with the patient having postoperative changes consistent with vertebroplasties. 6. Hypertension, stable. 7. Mild dehydration improved with IV fluids. 8. Osteoporosis resulting in multiple bony fractures of the pelvis, thoracic ribs as noted above. 9. Anxiety and depression possibly exacerbating the reported chest pains showing good response to Benzodiazepines. 10. Urinary tract infection with final culture results showing Enterobacter aerogenes sensitive to Rocephin with the patient having been on Rocephin since admission. 11. Constipation. PLAN: We will continue to work with Wiring Inspector to gain admission to [facility]. At this point in time, we are awaiting her insurance to allow rehabilitation services through [facility]. This will probably occur on Friday. There was a 72 hour wait for the insurance to okay her admission. Until that time, Physical Therapy will continue to work with Ms. Nguyen. We will continue to provide pain medication and antibiotics for her underlying urinary tract infection. We will additionally do a urinalysis tomorrow to see if this is necessary to continue and start MiraLAX for her constipation. The patient was encouraged to do deep breathing exercises and splinting in efforts to prevent any complications secondary to multiple rib fractures. Until discharge, we will continue monitoring closely and treat appropriately. Rafael Peña M.D. is the collaborating physician and is available for consultation by phone. #[id number] and [id number] [facility]
[2017-09-27] MEDS: SODIUM CHLORIDE 0.9% (FLUSH) 10 ML SYG IV PRN (19:39)
[2017-09-27] MEDS: MORPHINE SULFATE INJ 10 MG/ML VIAL IV PRN (19:40)
[2017-09-27] MEDS: SODIUM CHLORIDE 0.9% (FLUSH) 10 ML SYG IV SCH (21:00)
[2017-09-27] MEDS: ENOXAPARIN SODIUM 40 MG/0.4 ML SYG SUBCU SCH (21:00)
[2017-09-28] MEDS: IV SET AND CAP CHANGE INJ INJ SCH
[2017-09-28] MEDS ORDERED: cefTRIAXone SODIUM 1 GM VIAL ONE ×2 (02:13→20:13)
[2017-09-28] MEDS ORDERED: SODIUM CHL 0.9% 50ML MIN-BAG+ 50 ML IVPB ONE ×2 (02:13→20:13)
[2017-09-28] MEDS: cefTRIAXone SODIUM 1 GM in SODIUM CHL 0.9% 50ML MIN-BAG+ 50 ML IVPB SCH (02:25)
[2017-09-28] MEDS: SODIUM CHLORIDE 0.9% (FLUSH) 10 ML SYG IV PRN ×2 (02:26→20:27)
[2017-09-28] MEDS: PREGABALIN 25 MG CAP PO SCH ×2 (09:02→21:11)
[2017-09-28] MEDS: POLYETHYLENE GLYCOL 3350 17 GM PCKT PO SCH (09:02)
[2017-09-28] MEDS: SODIUM CHLORIDE 0.9% (FLUSH) 10 ML SYG IV SCH ×3 (09:02→21:10)
[2017-09-28] MEDS: CITALOPRAM HBR 20 MG TAB PO SCH (09:02)
[2017-09-28] MEDS: MORPHINE SULFATE INJ 10 MG/ML VIAL IV PRN ×2 (14:00→20:28)
--- NOTE | 2017-09-28 15:17 | PN ---
DATE: 09/28/17 SUPERVISING PHYSICIAN: Rafael Peña M.D. SUBJECTIVE: Ms. Nguyen was seen today. She was lying in bed. She is awake, alert and oriented, and conversational. She states that she is slightly more comfortable than yesterday, however if she moves she does have considerable discomfort. She is taking Tramadol periodically for pain, but does not like to take it. She will continue with physical therapy tomorrow and we are still awaiting her insurance to okay her placement in the rehab facility. The nurse noted today that her urine was somewhat dark and her output was low the last 24 hours, and she was encouraged to intake more p.o. fluids. OBJECTIVE: VITAL SIGNS: 98.3 temperature, 77 pulse, 112/75 blood pressure, 18 respiratory rate, 94% oxygen saturation on 1.5 liters of nasal cannula oxygen. Intake and output: She had 1199 in, 745 out. Her weight today was 63.04 kg. There are no new laboratory tests or radiology exams for review. Physical examination: Ms. Nguyen is an 87 year-old white female who appears her stated age. She is well-developed, well-nourished and in no acute distress. She does , however, appear to be uncomfortable. Respiratory effort is even and unlabored. Breath sounds are clear to auscultation with no rales, rhonchi or wheezing. She is apprehensive to take a deep breath and winces when instructed to do so. HEART: Sounds normal S1 and S2, regular rate and rhythm. No murmurs , clicks or rubs. Peripheral pulses are palpable bilaterally upper and lower extremities. There is no edema of the extremities. No clubbing or cyanosis noted of the hands, fingers or nails. She has brisk capillary refill of the fingers and toes bilaterally upper and lower extremities. ABDOMEN: Soft, non- tender. Bowel sounds are active in all 4 quadrants. There are no masses or organomegaly noted. NEUROLOGIC: She is alert and oriented times three. Mood and affect are normal. ASSESSMENT: 1. Acute bilateral pubic rami fracture secondary to same level fall with the patient showing continued hemodynamic stability and showing to be stable in regards to the fractures on repeat radiographic studies after ambulatory efforts and physical therapy. 2. Closed head injury with blunt force trauma same level fall with no mention of loss of consciousness with a contusion to the left anabaptism area with no acute findings on CT. 3. Multiple rib fractures involving the left posterior sixth through eleventh ribs with no pneumothorax identified. 4. Chest pains felt to be related to the multiple rib fractures on the left posterior aspect with the patient having a slightly elevated troponin but returning to baseline status with EKG showing to be no acute changes and also with the patient having a large hiatal hernia and no recurrence of chest pains except with deep inspiration efforts or palpation of the chest wall. 5. Previous compression fractures as identified on recent thoracic and lumbar CT involving T11, T10 and T8 with no new compression fractures identified with the patient having postoperative changes consistent with vertebroplasties. 6. Hypertension, stable. 7. Mild dehydration improved with IV fluids. 8. Osteoporosis resulting in multiple bony fractures of the pelvis, thoracic ribs as noted above. 9. Anxiety and depression possibly exacerbating the reported chest pains showing good response to Benzodiazepines. 10. Urinary tract infection with final culture results showing Enterobacter aerogenes sensitive to Rocephin with the patient having been on Rocephin since admission. 11. Constipation. PLAN: Will continue to work with Phy Therapist to gain admission to [facility]. Continue physical therapy to work on strength and conditioning. Pain medication to facilitate movement and deep breathing and coughing. She was noted to have some gurgling in her upper airway and instructed to cough. She was hesitant to do so, however with splinting she was able to cough that up. She was instructed she needed to cough several times throughout the day. It may be adventitious to incorporate respiratory therapy for good pulmonary hygiene with her rib fractures. Until discharge, we will continue to monitor closely and treat appropriately. Rafael Peña M.D. is the collaborating physician and available for consultation by telephone. #[id number] [facility]
[2017-09-28] MEDS: ENOXAPARIN SODIUM 40 MG/0.4 ML SYG SUBCU SCH (21:11)
[2017-09-29] MEDS: ALPRAZolam 0.25 MG TAB PO PRN ×2 (00:40→18:16)
[2017-09-29] MEDS: cefTRIAXone SODIUM 1 GM in SODIUM CHL 0.9% 50ML MIN-BAG+ 50 ML IVPB SCH (02:23)
--- NOTE | 2017-09-29 08:24 | PN ---
DATE: 09/27/17 SUBJECTIVE: Ms. Nguyen is doing okay. She still has quite a bit of pain. That said, x-rays do show that she has a stable fracture and she has been up. PLAN: At this point, the plan is for her to be transferred to [facility] whenever she is approved. #[id number] [facility]
[2017-09-29] MEDS: PREGABALIN 25 MG CAP PO SCH ×2 (08:44→20:30)
[2017-09-29] MEDS: POLYETHYLENE GLYCOL 3350 17 GM PCKT PO SCH (08:44)
[2017-09-29] MEDS: SODIUM CHLORIDE 0.9% (FLUSH) 10 ML SYG IV SCH ×2 (08:45→20:29)
[2017-09-29] MEDS: MORPHINE SULFATE INJ 10 MG/ML VIAL IV PRN ×3 (08:45→20:29)
[2017-09-29] MEDS: CITALOPRAM HBR 20 MG TAB PO SCH (08:45)
--- NOTE | 2017-09-29 19:08 | PN ---
DATE: 09/29/17 SUPERVISING PHYSICIAN: Derek Robbins M.D. SUBJECTIVE: The patient is lying in bed. She complains of her left shoulder hurting. She also says that the pain medications hold her some, but she does not like taking [place] but the morphine does help. Otherwise no complaints of chest pain, shortness of breath, nausea or vomiting. OBJECTIVE: VITAL SIGNS: She is afebrile, heart rate 76, blood pressure 110/58, respiratory rate 18, O2 sat is 93%. RESPIRATORY: Essentially clear to auscultation bilaterally. CARDIAC: Regular rate and rhythm. GASTROINTESTINAL: Abdomen is soft, nondistended, non-tender. Bowel sounds are positive. EXTREMITIES: She does have some ecchymosis along that left shoulder with some tenderness to palpation on the lateral portion of her shoulder. No cyanosis, clubbing or edema. NEUROLOGIC: She is awake, alert and oriented times three. LABORATORY: There are no labs or films to report at this time. ASSESSMENT: 1. Acute bilateral pubic rami fracture secondary to same level fall with the patient showing continued hemodynamic stability and showing to be stable in regards to the fracture on repeat radiographic studies after ambulatory efforts and physical therapy. 2. Closed head injury with blunt force trauma, same level fall with no mention of loss of consciousness with a contusion to the left spiritism area with no acute findings on CT. 3. Multiple rib fractures involving the left posterior sixth through seventh ribs and no pneumothorax identified. 4. Chest pain felt to be related to the multiple rib fractures on the left posterior aspect with the patient having a slightly elevated troponin but returning to baseline and EKG showing no acute changes. 5. Previous compression fractures as identified on recent thoracic and lumbar CT involving T11, T10 and T8 with no new compression fractures identified. 6. Hypertension. 7. Mild dehydration that has improved. 8. Osteoporosis. 9. Anxiety and depression. 10. Urinary tract infection with final culture showing Enterobacter aerogenes sensitive to Rocephin with the patient presently on Rocephin. 11. Constipation. 12. Left shoulder pain. PLAN: We will continue present supportive care. At this point, we are continued to await insurance approval for her [facility] rehab. I have increased her Xanax and I have also ordered a left shoulder x-ray. We will continue to monitor closely. Hopefully she can be discharged to the rehab facility tomorrow and will followup as necessary. Dr. Robbnis is the collaborating physician available for consultation. #[id number] [facility]
--- NOTE | 2017-09-29 20:00 | RAD ---
EXAM: Shoulder,Left 2 or More Views CLINICAL INDICATION: 87-year-old female with LEFT shoulder pain. TECHNIQUE: Two views LEFT shoulder were obtained in AP, and lateral projections. COMPARISON: Chest radiograph 09/25/2017. FINDINGS: There is no fracture or dislocation. The joint spaces are preserved. No soft tissue abnormalities are seen. Irregularity of the upper LEFT side ribs suggests sequela of prior trauma. The bones are severely demineralized limiting assessment for subtle fracture. Incidentally noted LEFT basilar opacification concerning for small pleural effusion with or without atelectasis or consolidation. Thoracic vertebral plasty cement incompletely visualized. IMPRESSION: 1. The bones are severely demineralized limiting assessment for subtle fracture. 2. No acute radiographic abnormality. 3. Incidentally noted LEFT basilar opacification concerning for small pleural effusion with or without atelectasis or consolidation. Electronically signed by: Abena Graves MD 09/29/2017 7:59 PM [facility]
[2017-09-29] MEDS: ENOXAPARIN SODIUM 40 MG/0.4 ML SYG SUBCU SCH (20:30)
[2017-09-30] MEDS ORDERED: cefTRIAXone SODIUM 1 GM VIAL ONE ×2 (01:53→19:33)
[2017-09-30] MEDS ORDERED: SODIUM CHL 0.9% 50ML MIN-BAG+ 50 ML IVPB ONE ×2 (01:53→19:33)
[2017-09-30] MEDS: SODIUM CHLORIDE 0.9% (FLUSH) 10 ML SYG IV PRN ×2 (02:26→02:30)
[2017-09-30] MEDS: cefTRIAXone SODIUM 1 GM in SODIUM CHL 0.9% 50ML MIN-BAG+ 50 ML IVPB SCH (02:27)
[2017-09-30] MEDS: MORPHINE SULFATE INJ 10 MG/ML VIAL IV PRN (02:30)
[2017-09-30] MEDS: traMADol 37.5MG/APAP 325MG 1 EA TAB PO PRN ×2 (08:39→21:13)
[2017-09-30] MEDS: POLYETHYLENE GLYCOL 3350 17 GM PCKT PO SCH (08:39)
[2017-09-30] MEDS: CITALOPRAM HBR 20 MG TAB PO SCH (08:39)
[2017-09-30] MEDS: PREGABALIN 25 MG CAP PO SCH ×2 (08:39→21:13)
[2017-09-30] MEDS: SODIUM CHLORIDE 0.9% (FLUSH) 10 ML SYG IV SCH ×2 (08:45→21:13)
[2017-09-30] MEDS: ACETAMINOPHEN 325 MG TAB PO PRN (10:27)
[2017-09-30] MEDS: ALPRAZolam 0.25 MG TAB PO PRN (17:14)
[2017-09-30] MEDS: ENOXAPARIN SODIUM 40 MG/0.4 ML SYG SUBCU SCH (21:10)
[2017-10-01] MEDS: ALPRAZolam 0.25 MG TAB PO PRN (01:06)
[2017-10-01] MEDS: cefTRIAXone SODIUM 1 GM in SODIUM CHL 0.9% 50ML MIN-BAG+ 50 ML IVPB SCH (01:54)
[2017-10-01] MEDS: IV SET AND CAP CHANGE INJ INJ SCH (06:33)
[2017-10-01] MEDS: traMADol 37.5MG/APAP 325MG 1 EA TAB PO PRN ×3 (06:35→16:05)
--- NOTE | 2017-10-01 09:01 | PN ---
SUPERVISING PHYSICIAN: Derek Robbins MD DATE: 09/30/17 SUBJECTIVE: The patient is sitting up in her chair in her room. She is pleased that she has walked further with assistance today than she has in the past several days. Chelsea Solorzano, Book Publisher, and I discussed her discharge planning and gave her the options for her discharge whether that be private pay at a senior care or with home health as she was declined for her rehab by her insurance company. She agreed that she would speak with her and her daughter and we could make a decision tomorrow. OBJECTIVE: VITAL SIGNS: Temperature 97.6. Heart rate 74. Blood pressure 107/ 68. Respiratory rate 18. O2 saturation 95%. LUNGS: Clear to auscultation bilaterally. CARDIAC: Regular rate and rhythm. NEUROLOGIC: Awake, alert and oriented times three. LABORATORY: There are no labs and films to report at this time. RADIOLOGY: Left shoulder x-ray per radiologic interpretation shows 1. The bones are severely demineralized, limiting assessment for subtle fracture. 2. No acute radiographic abnormality. 3. Incidentally noted left basilar opacification, concerning for small pleural effusion with or without atelectasis or consolidation. PHYSICAL THERAPY EVALUATION: Physical therapy said she was able to take several steps with moderate assist from her bed to the chair and her increase in activity had improved since yesterday. ASSESSMENT: 1. Acute bilateral pubic rami fracture secondary to same level fall with the patient showing continued hemodynamic stability and showing to be stable in regards to the fracture on repeat radiographic studies after ambulatory efforts and physical therapy. 2. Closed head injury with blunt force trauma, same level fall with no mention of loss of consciousness with a contusion to the left roman catholic area with no acute findings on CT. 3. Multiple rib fractures involving the left posterior sixth through seventh ribs and no pneumothorax identified. 4. Chest pain felt to be related to the multiple rib fractures on the left posterior aspect with the patient having a slightly elevated troponin but returning to baseline and EKG showing no acute changes. 5. Previous compression fractures as identified on recent thoracic and lumbar CT involving T11, T10 and T8 with no new compression fractures identified. 6. Hypertension. 7. Mild dehydration that has improved. 8. Osteoporosis. 9. Anxiety and depression. 10. Urinary tract infection with final culture showing Enterobacter aerogenes sensitive to Rocephin with the patient presently on Rocephin. 11. Constipation. 12. Left shoulder pain. PLAN: We will continue present supportive care. I spoke with [facility] today as they had declined her rehab admission. We received word of their declining the stay this morning and the [facility] physician said that we had not contacted them within the 24 hour period allowed for peer to peer review. We were only informed of the declination of services today around noon. Again, Chelsea Solorzano, Auto Painter, and I discussed at length with the family about her discharge planning. She realizes she will have to be discharged tomorrow and we are awaiting her family's decision. We will continue to monitor the patient closely and follow as needed. Dr. Robbins is the collaborating physician and available for consultation. #[id number] [facility]US[facility]
[2017-10-01] MEDS: POLYETHYLENE GLYCOL 3350 17 GM PCKT PO SCH (09:27)
[2017-10-01] MEDS: SODIUM CHLORIDE 0.9% (FLUSH) 10 ML SYG IV SCH ×2 (09:27→21:12)
[2017-10-01] MEDS: CITALOPRAM HBR 20 MG TAB PO SCH (09:27)
[2017-10-01] MEDS: PREGABALIN 25 MG CAP PO SCH ×2 (09:27→21:11)
--- NOTE | 2017-10-01 18:17 | PN ---
DATE: 10/01/17 SUPERVISING PHYSICIAN: Derek Robbins M.D. SUBJECTIVE: The patient is sitting up in her chair in her room. She did well with physical therapy today. We have been in discussion with the patient and her family on her discharge planning hopefully to [facility] tomorrow. The patient denies any shortness of breath, chest pain, nausea, vomiting or diarrhea. OBJECTIVE: VITAL SIGNS: She is afebrile, heart rate 69, blood pressure 120/61 , respiratory rate 16, O2 sat is 96%. RESPIRATORY: Essentially clear to auscultation bilaterally. CARDIAC: Regular rate and rhythm. NEUROLOGIC: She is awake, alert and oriented times three. LABORATORY: There are no labs or films to report at this time. ASSESSMENT: 1. Acute bilateral pubic rami fracture secondary to same level fall with the patient showing continued hemodynamic stability and showing to be stable in regards to the fracture on repeat radiographic studies after ambulatory efforts and physical therapy. 2. Closed head injury with blunt force trauma, same level fall with no mention of loss of consciousness with a contusion to the left bahai area with no acute findings on CT. 3. Multiple rib fractures involving the left posterior sixth through seventh ribs and no pneumothorax identified. 4. Chest pain felt to be related to the multiple rib fractures on the left posterior aspect with the patient having a slightly elevated troponin but returning to baseline and EKG showing no acute changes. 5. Previous compression fractures as identified on recent thoracic and lumbar CT involving T11, T10 and T8 with no new compression fractures identified. 6. Hypertension. 7. Mild dehydration that has improved. 8. Osteoporosis. 9. Anxiety and depression. 10. Urinary tract infection with final culture showing Enterobacter aerogenes sensitive to Rocephin with the patient presently on Rocephin. 11. Constipation. 12. Left shoulder pain. PLAN: We will continue present supportive care. [facility] is in the process of getting the patient qualified through her insurance to be transferred to their facility for physical therapy, strengthening and conditioning. Chelsea Solorzano, Setter Cold Rolling Machine, has been in touch with their facility and they are at this point awaiting approval from the corporate office as well as from the insurance company. Hopefully she can be discharged tomorrow. Otherwise we will continue to monitor the patient closely and follow as needed. Dr. Robbins is the collaborating physician available for consultation. #[id number] [facility]
[2017-10-01] MEDS: MORPHINE SULFATE INJ 10 MG/ML VIAL IV PRN (18:49)
[2017-10-01] MEDS: SODIUM CHLORIDE 0.9% (FLUSH) 10 ML SYG IV PRN (18:50)
[2017-10-01] MEDS ORDERED: SODIUM CHL 0.9% 50ML MIN-BAG+ 50 ML IVPB ONE (20:10)
[2017-10-01] MEDS ORDERED: cefTRIAXone SODIUM 1 GM VIAL ONE (20:10)
[2017-10-01] MEDS: ENOXAPARIN SODIUM 40 MG/0.4 ML SYG SUBCU SCH (21:12)
[2017-10-02] MEDS: cefTRIAXone SODIUM 1 GM in SODIUM CHL 0.9% 50ML MIN-BAG+ 50 ML IVPB SCH (02:16)
[2017-10-02 07:07] VITALS: O2SAT 95
[2017-10-02] MEDS ORDERED: BIFIDOBACTERIUM INFANTIS 4 MG CAP PO SCH (09:00)
[2017-10-02] MEDS: CITALOPRAM HBR 20 MG TAB PO SCH (09:03)
[2017-10-02] MEDS: PREGABALIN 25 MG CAP PO SCH (09:03)
[2017-10-02] MEDS: SODIUM CHLORIDE 0.9% (FLUSH) 10 ML SYG IV SCH (09:03)
[2017-10-02] MEDS: POLYETHYLENE GLYCOL 3350 17 GM PCKT PO SCH (09:04)
[2017-10-02 10:34] VITALS: BP 107/64; TEMP 98.4
[2017-10-02] MEDS: ALPRAZolam 0.25 MG TAB PO PRN (13:26)
[2017-10-02] MEDS: traMADol 37.5MG/APAP 325MG 1 EA TAB PO PRN (13:26)
== END 2017-10-02 15:00 ==
LOC: ER 14:49 → INTOOBSV 23:58 → OBSVTOIN 23:58 → MS 23:58
PROVIDERS: ADMIT Nurse Practitioner Family; ATTEND Nurse Practitioner Family
DX: S32.592A Other specified fracture of left pubis, initial encounter for closed fracture (principal); S32.591A Other specified fracture of right pubis, initial encounter for closed fracture; S00.83XA Contusion of other part of head, initial encounter; S22.42XA Multiple fractures of ribs, left side, initial encounter for closed fracture; M48.56XA Collapsed vertebra, not elsewhere classified, lumbar region, initial encounter for fracture; M48.54XA Collapsed vertebra, not elsewhere classified, thoracic region, initial encounter for fracture; M48.52XA Collapsed vertebra, not elsewhere classified, cervical region, initial encounter for fracture; I10 Essential (primary) hypertension; E86.0 Dehydration; N39.0 Urinary tract infection, site not specified; B96.89 Other specified bacterial agents as the cause of diseases classified elsewhere; M25.512 Pain in left shoulder; M48.02 Spinal stenosis, cervical region; K59.00 Constipation, unspecified; E78.5 Hyperlipidemia, unspecified; M81.0 Age-related osteoporosis without current pathological fracture; M54.16 Radiculopathy, lumbar region; K44.9 Diaphragmatic hernia without obstruction or gangrene; F41.9 Anxiety disorder, unspecified; F32.9 Major depressive disorder, single episode, unspecified; J90 Pleural effusion, not elsewhere classified; W18.39XA Other fall on same level, initial encounter; Y93.89 Activity, other specified; Y92.480 Sidewalk as the place of occurrence of the external cause; Y99.8 Other external cause status; Z79.82 Long term (current) use of aspirin; Z79.899 Other long term (current) drug therapy; Z88.0 Allergy status to penicillin; Z88.6 Allergy status to analgesic agent; Z88.8 Allergy status to other drugs, medicaments and biological substances; Z96.642 Presence of left artificial hip joint; Z87.891 Personal history of nicotine dependence
CPT/HCPCS: 36415 ×5; 70450; 71010; 71250; 72125; 72128; 72131; 72170; 72190; 72191; 73030; 73502; 73551; 80048 ×2; 80053 ×2; 81001; 82550 ×3; 82553 ×3; 83880; 84484 ×3; 85025 ×4; 87086; 87088; 87186; 93005; 94760 ×17; 94762 ×4; 96365; 96366 ×7; 96372 ×7; 96375 ×2; 96376 ×7; 97162; 97164; 97530 ×7; 99284; G0378; G8978 ×2; G8979 ×2; J0696 ×8; J1170 ×4; J1650 ×7; J2270 ×9; J2405; J3010; J3480 ×2; J7050 ×8

== ENCOUNTER → 2017-10-27 | Outpatient (CLI) | payer MEDICARE ==
--- NOTE | 2017-10-27 10:25 | RAD ---
EXAM DESCRIPTION: Pelvis,2 or More Views CLINICAL HISTORY: PERINEAL PAIN COMPARISON: September 26, 2017 IMPRESSION: Single AP supine view of the pelvis again demonstrates comminuted displaced fractures involving the left pubic symphysis and pubic rami similar to previous exam. No acute appearing fracture is identified although osteopenia of the osseous structures limits evaluation for subtle nondisplaced fractures. Left hip arthroplasty with cement fixation of the femoral component appears similar to previous. Mild osteoarthritic changes of the right hip are seen. Electronically signed by: Murray Shanks MD 10/27/2017 10:24 AM [facility]
== END | disposition home or self-care (01) ==
LOC: RAD 08:49
PROVIDERS: ATTEND Orthopaedic Surgery
DX: R10.2 Pelvic and perineal pain (principal)

== ENCOUNTER → 2017-10-29 | Outpatient (CLI) | payer MEDICARE | END | disposition home or self-care (01) | LOC: GT 06:23 | PROVIDERS: ATTEND Family Medicine | DX: N39.0 Urinary tract infection, site not specified (principal); M54.9 Dorsalgia, unspecified | CPT/HCPCS: 36415; 81001; 87086; P9603 ==

== ENCOUNTER → 2017-11-06 | Outpatient (CLI) | payer MEDICARE | LOC: LAB.NP 13:34 | PROVIDERS: ATTEND Family Medicine | DX: N39.0 Urinary tract infection, site not specified (principal) ==

== ENCOUNTER → 2017-11-18 | Outpatient (CLI) | payer MEDICARE | LOC: BFHH 11:01 | PROVIDERS: ATTEND Family Medicine | DX: N39.0 Urinary tract infection, site not specified (principal) ==

== ENCOUNTER → 2017-11-21 | Outpatient (CLI) | payer MEDICARE ==
--- NOTE | 2017-11-24 08:28 | RAD ---
EXAM DESCRIPTION: Pelvis CLINICAL HISTORY: 87 years Female, CLOSED FX OF PELVIS COMPARISON: October 27, 2017 FINDINGS: There is a subacute/healing fracture of the left pubic bone involving inferior and medial aspect. Sclerosis along the fracture margins indicates subacute/healing nature of the fracture. No other fracture observed. Diffuse decreased bone density consistent with osteopenia/osteoporosis. IMPRESSION: Subacute pubic fracture Electronically signed by: Juan Conte MD 11/24/2017 8:27 AM [facility]
--- NOTE | 2017-11-24 08:49 | RAD ---
EXAM DESCRIPTION: Lumbar Spine 3 Views CLINICAL HISTORY: 87 yearsFemale, CHRONIC BACK PAIN COMPARISON: CT lumbar spine 09/25/2017 IMPRESSION: The bones are severely demineralized, which limits evaluation. A chronic compression fracture is demonstrated in the L2 vertebral body with up to 50% loss of stature. Chronic compression fractures in T11 and T12 which are post augmentation. There is no definite evidence of an acute compression fracture in the lumbar spine, though severe osteopenia limits evaluation. Trace retrolisthesis of L2 on L3 again demonstrated. Multilevel hypertrophic facet degenerative changes. Calcific plaque in the thoracic aorta. A left hip prosthesis is demonstrated. Electronically signed by: Du Weir MD 11/24/2017 8:49 AM [facility]
--- NOTE | 2017-11-24 09:00 | RAD ---
EXAM DESCRIPTION: Thoracic Spine,AP Lateral CLINICAL HISTORY: BACK PAIN COMPARISON: CT of the thoracic spine dated 25 September 2017 TECHNIQUE: AP and lateral FINDINGS: The spine is osteopenic. There is evidence of prior vertebroplasty at the T9 T11 and T12 levels. No new compression injury is seen. A hiatus hernia is noted. Deformity of left-sided ribs is observed from prior fracturing. IMPRESSION: Osteopenia and evidence of prior vertebral body augmentation is observed. No acute injury is detected. Electronically signed by: West Mcdonnell MD 11/24/2017 8:59 AM [facility]
== END ==
LOC: RAD 08:31
PROVIDERS: ATTEND Orthopaedic Surgery
DX: S32.591D Other specified fracture of right pubis, subsequent encounter for fracture with routine healing (principal); M54.6 Pain in thoracic spine

== ENCOUNTER → 2017-11-25 | Outpatient (CLI) | payer OTHER | LOC: BFHH 09:25 | PROVIDERS: ATTEND Family Medicine | DX: I10 Essential (primary) hypertension (principal); D51.9 Vitamin B12 deficiency anemia, unspecified; E55.9 Vitamin D deficiency, unspecified; E78.5 Hyperlipidemia, unspecified ==

== ENCOUNTER → 2017-11-26 | Outpatient (CLI) | payer OTHER | LOC: BFHH 15:35 | PROVIDERS: ATTEND Family Medicine | DX: N39.0 Urinary tract infection, site not specified (principal) ==

== ENCOUNTER → 2017-12-09 | Outpatient (CLI) | payer OTHER | LOC: BFHH 13:17 | PROVIDERS: ATTEND Family Medicine | DX: N39.0 Urinary tract infection, site not specified (principal) ==

== ENCOUNTER 2018-05-11 06:06 | Day surgery (SDC) | payer OTHER ==
[2018-05-11] MEDS ORDERED: PROPARACAINE 0.5% OPHTH SOL 15 ML BTTL ONE (08:31)
[2018-05-11] MEDS ORDERED: TROP 1%/CYCLOPEN 1%/PHENYL 2% DROPS ONE (08:31)
[2018-05-11] MEDS ORDERED: MIDAZOLAM INJ 2 MG/2 ML VIAL ONE (09:39)
[2018-05-11] MEDS ORDERED: DEXAMETHASONE 0.1% OPHTH SOL 1 DROP LEFT_EYE ONE (09:53)
[2018-05-11] MEDS ORDERED: LIDOCAINE 1% MPF 5 ML VIAL INJ ONE (09:53)
[2018-05-11] MEDS ORDERED: TOBRAMYCIN SULF 0.3 % OPHT SOL 1 DROP LEFT_EYE ONE (09:54)
[2018-05-11] MEDS ORDERED: BRIMONIDINE 0.2% OPHTH DROPS LEFT_EYE ONE (09:54)
== END 2018-05-11 10:55 | disposition home or self-care (01) ==
LOC: AMB 06:06
PROVIDERS: ATTEND Ophthalmology
DX: H25.12 Age-related nuclear cataract, left eye (principal); I10 Essential (primary) hypertension; K21.9 Gastro-esophageal reflux disease without esophagitis; Z88.5 Allergy status to narcotic agent; Z79.899 Other long term (current) drug therapy
CPT/HCPCS: 66984; J2250

== ENCOUNTER → 2018-12-01 | Outpatient (CLI) | payer OTHER ==
--- NOTE | 2018-12-01 15:36 | US ---
EXAM DESCRIPTION: Venous,Lower Extremity LT CLINICAL HISTORY: SWELLING COMPARISON: None Available. TECHNIQUE: Left lower extremity venous duplex FINDINGS: Doppler evaluation of the left lower extremity deep veins was performed. Normal color flow is seen in the common femoral, superficial femoral, profunda femoral and greater saphenous veins. Normal flow is seen in the popliteal vein and veins below the knee in the calf. Normal venous compressibility and flow augmentation. IMPRESSION: Negative for evidence of deep venous thrombosis on left lower extremity venous Doppler sonogram. Electronically signed by: Jack Oswald MD 12/01/2018 3:33 PM CON[employer] SUPER[employer]
== END ==
LOC: US 15:04
PROVIDERS: ATTEND Family Medicine
DX: M79.662 Pain in left lower leg (principal)

== ENCOUNTER 2018-12-06 19:37 | Observation (INO) | payer OTHER ==
[2018-12-06] MEDS ORDERED: SODIUM CHLORIDE 0.9% 1000ML 500 ML IVS ONE (20:08)
--- NOTE | 2018-12-06 21:36 | CT ---
CT ABDOMEN AND PELVIS WITH CONTRAST. 12/06/2018 CLINICAL HISTORY: Left lower quadrant pain COMPARISON: CT abdomen and pelvis with contrast 03/02/2017. TECHNIQUE: Axial [address] imaging of the abdomen and pelvis performed utilizing intravenous contrast. Reformatted coronal and sagittal images reviewed. A dose reduction technique was utilized with automated exposure control according to patient size. FINDINGS: LOWER THORAX: Minimal left lower lobe atelectasis. Heart is enlarged. ABDOMEN: LIVER/GALLBLADDER: The superior dome of the liver is not included in the field of imaging. The liver attenuation appears normal. Normal gallbladder. No intrahepatic dilated dilatation. The common bile duct is dilated at 1.2 cm with no visualized stone. SPLEEN/PANCREAS: Normal spleen. Normal pancreas. KIDNEYS/ADRENAL GLANDS: Normal adrenal glands. Small hypodensities in both kidneys compatible with simple cysts. The largest is 1.3 cm and the left kidney and 9 mm in the right kidney. Mild fullness of the right and left renal pelvis with no obstructing stone or mass. RETROPERITONEAL VESSELS/NODES: Moderate aortic atherosclerosis. No aneurysm. Normal caliber inferior vena cava. No adenopathy. Normal mesenteric vasculature. BOWEL: There is a large hiatal hernia with most of the stomach above the hiatus. This is not fully imaged. There may be an organoaxial volvulus. The appearance is similar to 2017. The small bowel loops are normal in caliber. A few diverticula are present within the descending colon. Extensive diverticulosis in the sigmoid colon. No diverticulitis. There are diffuse colonic fluid levels. MESENTERY/PERITONEUM: No adenopathy. No ascites or free air. PELVIS: BLADDER: Normal bladder. GENITAL ORGANS: Normal prostate. PERITONEUM: No free fluid or adenopathy. BONES AND SOFT TISSUES: There are old high-grade fractures of T11 and T12 with prior vertebroplasty. Mild retropulsion. There is an old superior endplate moderate compression deformity of L2 and mild superior endplate depression for many of L3. Mild lumbar diffuse disc bulge at all levels. Generalized decreased bone density. Intact bony pelvis. Left hip arthroplasty appears intact. There is a dextro convex lumbar scoliotic curve. IMPRESSION: 1. Descending and sigmoid colon diverticulosis without diverticulitis. 2. Diffuse colonic fluid levels compatible with enteritis. 3. Bilateral renal cysts. Mild prominence of the right and left renal pelvis with no obstructing etiology. 4. Large hiatal hernia with possible organoaxial volvulus. The appearance is similar 2017. No evidence of incarceration or obstruction. 5. Common bile duct dilatation with no obstructing etiology. Electronically signed by: Nneka Cristina DO 12/06/2018 9:33 PM [employer]
--- NOTE | 2018-12-06 23:10 | ED.PDOC ---
History of Present Illness - General Chief Complaint: GI Problem Stated Complaint: Left abd and back pain Time Seen by Provider: 12/06/18 20:06 Information Source: patient, family Exam Limitations: no limitations - History of Present Illness Initial Comments: c/o abd pain after taking codeine producing constipation. No BM in 3 days. Reportedly has had this many times before. Abdominal Pain Onset Location: LLQ, flank Pain Radiation: back Quality: severe, waxing/waning Timing/Duration: days Improving Factors: nothing Worsening Factors: nothing Associated Symptoms: back pain - by description perhaps some overflow incontinence Review of Systems - Review of Systems Constitutional: States: see HPI EENTM: States: no symptoms reported Respiratory: States: no symptoms reported Cardiology: States: no symptoms reported Gastrointestinal/Abdominal: States: see HPI Genitourinary: States: no symptoms reported Musculoskeletal: States: see HPI, back pain Skin: States: no symptoms reported Neurological: States: no symptoms reported Endocrine: States: no symptoms reported Hematologic/Lymphatic: States: no symptoms reported Past Medical History (General) - Patient Medical History Hx Seizures: No Hx Stroke: No Hx Dementia: No Hx Asthma: No Hx of COPD: No Hx Cardiac Disorders: No Hx Congestive Heart Failure: No Hx Pacemaker: No Hx Hypertension: Yes - no longer on meds for it Hx Thyroid Disease: No Hx Diabetes: No Hx Gastroesophageal Reflux: No Hx Renal Disease: No Hx Cancer: No Hx of HIV: No Hx Hepatitis C: No Hx MRSA: No - Vaccination History Hx Tetanus, Diphtheria Vaccination: No Hx Influenza Vaccination: No Hx Pneumococcal Vaccination: No - Social History Hx Tobacco Use: Yes Hx Chewing Tobacco Use: No Hx Alcohol Use: No Hx Substance Use: No Hx Substance Use Treatment: No Hx Depression: No Hx Physical Abuse: No Hx Emotional Abuse: No Hx Suspected Abuse: No - Female History Patient : No Family Medical History - Family History Mother Family History: No Known Living Status: Age at (years of age): 85 Cause of : Loss of blood from heart cath. Hx Family Asthma: No Hx Family Congestive Heart Failure: Yes - Mother Hx Family Hypertension: Yes - Patient Hx Family Stroke: No Hx Cardiac Disease: Yes - Patient/Mother Hx Family Diabetes: Yes - Father Hx Family Cancer: Yes - Brother Physical Exam - Physical Exam General Appearance: Alert, Anxious, Other - uncomfortable Eyes, Ears, Nose, Throat Exam: other - moist mucosa Neck: supple Respiratory: lungs clear, normal breath sounds, no respiratory distress Cardiovascular/Chest: regular rate, rhythm, no gallop Gastrointestinal/Abdominal: soft, tenderness - LLQ Back Exam: CVA tenderness (L), decreased range of motion, other - left lower back pain Extremity: normal inspection, normal capillary refill Neurologic: alert, normal mood/affect, oriented x 3 Skin Exam: normal color, warm/dry Progress - Progress Progress: 12/06/18 23:09 Unchanged. - Results/Orders Results/Orders: WBC 14 Na 131 Cr0.6 - EKG/XRAY/CT CT Ordered: Yes - Enteritis; other similar findings to 2017 - Consult/PCP Time Called: 23:08 Consult/PCP: Dr. Robbins Departure - Departure Clinical Impression: Abdominal pain Qualifiers: Abdominal location: left lower quadrant Qualified Code(s): R10.32 - Left lower quadrant pain Time of Disposition: 23:10 Disposition: Admit Patient Condition: Fair Home Medications: Ambulatory Orders ALPRAZolam [Xanax] 0.25 mg PO BID PRN 10/03/14 Pregabalin [Lyrica] 50 mg PO BID 10/03/14 Citalopram Hydrobromide [Celexa] 40 mg PO DAILY 09/25/17 Acetaminophen [Tylenol] 650 mg PO Q6H PRN tab 10/02/17 Bifidobacterium Infantis [Align] 4 mg PO DAILY cap 10/02/17 Polyethylene Glycol 3350 [Miralax] 17 gm PO DAILY pckt 10/02/17 Tramadol HCl [Ultram] 50 mg PO Q6HR #30 tab 10/02/17 Decision To Admit - Decistion To Admit Decision to Admit Reason: Admit from ER Decision to Admit Date: 12/06/18 Decision to Admit Time: 23:11
--- NOTE | 2018-12-06 23:27 | HP ---
SUPERVISING PHYSICIAN: Derek Robbins MD CHIEF COMPLAINT: Left abdominal pain. HISTORY OF PRESENT ILLNESS: Ms. Nguyen is an 88 year-old female patient who presented to the Emergency Room earlier on the night of 12/06/18 complaining of left abdominal pain and back ache. She reported she had not had a bowel movement in several days. She had been started on some Lasix early in the week by Dr. Urrutia for some lower extremity swelling after it was noticed that her left leg was slightly swollen compared to the right and at that point an ultrasound rule out DVT. She was also having some generalized pain and was started on Tylenol No. 3. The patient notes she has a history of constipation any time she takes pain medicine and felt like she was fully constipated. She does have history of diverticulosis. Also of note was that she was bitten by her house cat Friday night which resulted in some pain to her right hand. Initially in the Emergency Room this was noted and was noted to be afebrile. Workup in the Emergency Room showed she had a leukocytosis of 13,400 with a left shift. Chemistries showed a low potassium of 3.5, sodium was 134, otherwise other chemistries were unremarkable. Urinalysis just showed trace of lysed blood and 40 of ketones. Due to her abdominal pain reportedly on the left side, she had a CT of the abdomen and pelvis with contrast which noted some descending sigmoid colon, diverticulosis without any evidence of diverticulitis. There was note on the same CT of diffuse colonic level compatible with enteritis. Given the findings on CT and the patient's sympathology, it was felt that the patient possibly was having some issues associated with constipation exacerbated by left lower quadrant pain due to a developing viral gastroenteritis. Dr. Huffman requested the patient be placed in observation for further treatment to assist in relieving her pain initially with stool softeners and enemas. She was placed in observation in stable condition. PAST MEDICAL HISTORY: 1. Chronic constipation. 2. Hypertension. 3. Hyperlipidemia. 4. Diverticulosis. 5. Osteoporosis. 6. Seasonal allergies. 7. Lumbar radiculopathy. PAST SURGICAL HISTORY: 1. T12 kyphoplasty. 2. Hysterectomy. 3. Open reduction and internal fixation of right elbow. 4. Open reduction and internal fixation of left hip. CURRENT MEDICATIONS: 1. Tylenol 650 every 6 hours as needed for pain. 2. Tylenol No. 3, one every 4 hours as needed for pain. 3. Celexa 30 mg daily. 4. Miralax 17 grams daily. 5. Lyrica 50 mg b.i.d. 6. Xanax 0.25 mg b.i.d. as needed. ALLERGIES: 1. BENADRYL causes vomiting. 2. MEPERIDINE. 3. AMOXICILLIN. 4. PIGMENT BLUE 63 FROM [facility].resulting in a headache. 5. LEXAPRO resulting in headache. 6. PHENOL. 7. EVISTA. 8. ACTONEL. 9. SORBITAN FROM [facility]. 10. FORTEO. 11. YELLOW DYE FROM [facility]. FAMILY HISTORY: Unremarkable. SOCIAL HISTORY: : The patient is retired, . She lives in [place]. She worked previously as a surgical nurse. She has smoked for two years, many years previously but is not currently a smoker. She drinks alcohol on a very rare social basis, typically a beer and glass of wine. She denies any illicit drug use. REVIEW OF SYSTEMS: CONSTITUTIONAL: Positive for general malaise and chills noted from the fever. . HEENT: Negative for headaches, vision changes, ear ache, sore throat or nasal congestion. RESPIRATORY: Negative for shortness of breath, coughing, wheezing. CARDIAC: Negative for chest pain, palpitations or syncopal episodes. GASTROINTESTINAL: As noted in history of present illness. Left lower quadrant abdominal pain with some nausea. Negative for any vomiting.. Positive for constipation, chronic. No reported diarrhea. GENITOURINARY: Denies dysuria, hematuria, polyuria. MUSCULOSKELETAL: As noted in history of present illness, left lower quadrant pain radiating to lower back with history of previous cervical spine compression fractures and kyplastic procedures.. NEUROLOGIC: Negative for dizziness, seizures, ataxia. No focal deficits. PHYSICAL EXAMINATION: VITAL SIGNS: Initially on presentation to the Emergency Room, temperature 99.8, pulse 84, blood pressure 129/76, respirations 18, saturation 95% on room air. Admission weight 57.1 kg. GENERAL: On examination on the medical/surgical floor, the patient is resting comfortably, appears to be in no acute distress. HEENT: Tympanic membranes clear bilaterally. Oropharynx is pink, moist without any lesions. NECK: Supple, nontender with full range of motion. No jugular venous distention noted. CHEST: Lungs clear to auscultation without any rhonchi, wheezes, or rales. CARDIOVASCULAR: Regular rate and rhythm without any appreciable murmurs, gallops, or rubs. ABDOMEN: Soft with some tenderness noted to the left lower quadrant on palpation. Bowel sounds are present. No rebound tenderness, no peritoneal signs. No guarding. BACK: Positive for CVA tenderness on the left with decreased range of motion in general to the left lower back with some back pain on active range of motion. EXTREMITIES: Right hand shows an area of ecchymosis and cellulitis on the dorsal aspect with what appears to be 2 puncture polk. The hand is mildly erythemic and edematous and warm on palpation as well as tender to touch. All extremities are without any cyanosis, clubbing, or edema. NEUROLOGIC: The patient is alert and oriented times three. INTEGUMENTARY: Skin was warm, pink and dry as noted above on extremities, ecchymotic area to the right dorsal aspect of the hand. LABORATORY: White count on admission 13,400, hemoglobin 14.6, hematocrit 44.4, platelet count at 231,000. Differential shows an early left shift. Chemistries show a sodium of 134, potassium 3.5, BUN 13, creatinine 0.6, glucose 119, calcium 9.5. Liver functions showed to be within normal limits. Urinalysis showed 40 ketones, trace lysed blood, otherwise within normal limits. MICROBIOLOGY: Blood cultures pending. RADIOLOGY: Abdominal pelvic CT in the Emergency Room with contrast and per radiology interpretation there was note of descending sigmoid colon and diverticulosis without any diverticulitis with diffuse colonic fluid levels compatible with enteritidis. There was note of bilateral renal cysts, more prominent on the right and left pelvis with no obstructing etiology. There was note of large hiatal hernia with a possible organoaxial volvulus similar to 2017 with no evidence of incarceration or obstruction. Common bile duct was noted to be dilated without obstructing etiology. Please see that report for full details. ASSESSMENT: 1. :Left lower quadrant' abdominal pain with findings on CT consistent with colonic enteritis, likely viral. 2. Moderate constipation with history of chronic constipation possibly creating some of her symptoms as noted in #1. 3. Cellulitis to the right hand secondary to a cat bite with patient showing a low grade fever and leukocytosis requiring initiation of parenteral antibiotics possibly contributing to some of her general malaise. 4. Electrolyte imbalance to include hypokalemia, hyponatremia. 5. General malaise, undetermined etiology, possibly related to underlying infectious process as noted above with cat bite to right hand. 6. History of multiple compression fractures involving both the thoracic and lumbar spine previously at T11 through T12 and history of past lumbar radiculopathy. 7. History of hypertension. 8. History of osteoporosis,. 9. History of anxiety and depression. PLAN: Initially, the patient was requested to be placed in observation but given findings on examination and concerns for a possible cellulitis, given the patient's advanced age and other comorbidities and being high risk for complications from infection from the cat bite, we will admit the patient for further treatment of the right hand cellulitis and obtain blood cultures to further monitor for any possible bacteremia. She will be on clear liquids for some bowel rest and started on antibiotics for both coverage of the ongoing cellulitis and enteritis. Will start her on Flagyl and Rocephin as per recommendations of current guidelines. Will plan to repeat labs in the morning. Will go ahead and work on her constipation with enemas and stool softeners and Miralax and milk of magnesia in an effort to prevent any further complications such as a bowel obstruction or progression to a possible diverticulitis as the patient has a history of diverticulosis. Will go ahead and saline-lock her as she appears to be fairly hydrated given her advanced age, will monitor her I&Os closely to insure that she stays well hydrated but not excessively to prevent complications from fluid overload. She will be remain on antibiotics for at least 48 hours to insure that her symptoms are improving as well as close monitoring of the cellulitis of the right hand. If she does not show very good clinical response initially, tomorrow we will take consideration for adding additional antibiotic coverage to include MRSA coverage with vancomycin or doxycycline. Until she can transition to outpatient management and tolerating a more advanced diet, we will continue to monitor and treat as needed. #[id number] [facility]
[2018-12-07] MEDS ORDERED: ONDANSETRON INJ 4 MG/2 ML VIAL IV PRN (00:35)
[2018-12-07] MEDS ORDERED: ACETAMINOPHEN 325 MG TAB PO PRN (00:35)
[2018-12-07] MEDS ORDERED: KCL 20 MEQ/NS 1,000 ML IVS ONE ×2 (00:48→01:01)
[2018-12-07] MEDS ORDERED: IV SET AND CAP CHANGE INJ INJ SCH (01:00)
[2018-12-07] MEDS: ALPRAZolam 0.25 MG TAB PO PRN ×2 (01:11→21:26)
[2018-12-07] MEDS ORDERED: SODIUM PHOS/BIPHOS ENEMA ADULT 133 ML BTTL PR ONE (03:39)
[2018-12-07] MEDS: OMEPRAZOLE CAP 20 MG CAP PO SCH (06:49)
--- NOTE | 2018-12-07 07:23 | RAD ---
2 Radiographs of the Abdomen. Indication: constipation Comparison: Radiographs April 11, 2017. CT December 06, 2018 Impression: Bowel gas pattern nonspecific. No discrete free air. No abnormal calcifications. Prior T11 and T12 vertebral body augmentation. Age-indeterminate endplate deformities of L2 and L3 noted superiorly. Correlation with point tenderness versus MRI recommended. Excreted contrast within the bladder. Left total hip arthroplasty. Cardiomegaly. Large hiatal hernia. Osteopenia. If this is a new finding, DEXA scan recommended as well as evaluation for possible osteoporosis treatment. Electronically signed by: Shayan Membreno MD 12/07/2018 7:20 AM [facility]
[2018-12-07] MEDS ORDERED: PREGABALIN 25 MG CAP ONE (07:35)
[2018-12-07] MEDS ORDERED: SODIUM CHLORIDE 0.9% (FLUSH) 10 ML SYG IV ONE (08:02)
[2018-12-07] MEDS: CITALOPRAM HBR 20 MG TAB PO SCH (08:52)
[2018-12-07] MEDS: MAGNESIUM HYDROXIDE 30 ML UD PO SCH ×2 (08:53→21:08)
[2018-12-07] MEDS: POLYETHYLENE GLYCOL 3350 17 GM PCKT PO SCH (08:53)
[2018-12-07] MEDS: SODIUM CHLORIDE 0.9% (FLUSH) 10 ML SYG IV SCH ×2 (08:53→21:08)
[2018-12-07] MEDS ORDERED: NON-FORMULARY MEDICATION 1 EA MIS (Pregabalin [Lyrica] 50 MG) PO SCH (09:00)
[2018-12-07] MEDS: PREGABALIN 25 MG CAP PO SCH ×2 (10:04→21:08)
[2018-12-07] MEDS ORDERED: metroNIDAZOLE IV PREMIX 500MG 100 ML IVPB ONE ×3 (11:39→20:21)
[2018-12-07] MEDS ORDERED: SODIUM CHL 0.9% 50ML MIN-BAG+ 50 ML IVPB ONE ×2 (11:39→20:21)
[2018-12-07] MEDS ORDERED: cefTRIAXone SODIUM 1 GM VIAL ONE ×2 (11:40→20:22)
[2018-12-07] MEDS: cefTRIAXone SODIUM 1 GM in SODIUM CHL 0.9% 50ML MIN-BAG+ 50 ML IVPB SCH ×2 (11:51→23:25)
[2018-12-07] MEDS: metroNIDAZOLE IV PREMIX 500MG 500 MG in PREMIX BAG 1 BAG IVPB SCH ×2 (12:40→18:25)
[2018-12-07] MEDS ORDERED: BENZOCAINE-MENTH LOZ (CEPACOL) 1 EA LOZ MT ONE (21:26)
[2018-12-08] MEDS: metroNIDAZOLE IV PREMIX 500MG 500 MG in PREMIX BAG 1 BAG IVPB SCH ×3 (03:20→17:44)
[2018-12-08] MEDS: OMEPRAZOLE CAP 20 MG CAP PO SCH (06:01)
--- NOTE | 2018-12-08 07:35 | RAD ---
EXAM DESCRIPTION: Abdomen Flat Upright CLINICAL HISTORY: abdominal pain COMPARISON: December 07, 2018 at 0705 hours. FINDINGS: 2 views of the abdomen pelvis. Nonspecific bowel gas pattern remains. No free intraperitoneal gas is demonstrated. No organomegaly or pathologic calcifications. Remote vertebral body augmentation. Total left hip arthroplasty. Advanced senescent changes of visualized lung. Large hiatal hernia. IMPRESSION: No specific radiographic findings for abdominal pain. Electronically signed by: Brandon Dewitt MD 12/08/2018 7:32 AM [facility]
[2018-12-08] MEDS ORDERED: SODIUM CHL 0.9% 50ML MIN-BAG+ 50 ML IVPB ONE (07:41)
[2018-12-08] MEDS ORDERED: metroNIDAZOLE IV PREMIX 500MG 100 ML IVPB ONE ×3 (07:42→23:49)
[2018-12-08] MEDS ORDERED: cefTRIAXone SODIUM 1 GM VIAL ONE ×2 (07:42→19:25)
[2018-12-08] MEDS: PREGABALIN 25 MG CAP PO SCH ×2 (08:20→20:48)
[2018-12-08] MEDS: CITALOPRAM HBR 20 MG TAB PO SCH (08:21)
[2018-12-08] MEDS: MAGNESIUM HYDROXIDE 30 ML UD PO SCH ×2 (09:39→20:47)
[2018-12-08] MEDS: POLYETHYLENE GLYCOL 3350 17 GM PCKT PO SCH (09:40)
[2018-12-08] MEDS: cefTRIAXone SODIUM 1 GM in SODIUM CHL 0.9% 50ML MIN-BAG+ 50 ML IVPB SCH (09:50)
[2018-12-08] MEDS: SODIUM CHLORIDE 0.9% (FLUSH) 10 ML SYG IV SCH ×2 (09:51→20:48)
[2018-12-08] MEDS: SODIUM CHLORIDE 0.9% IVPB SCH ×2 (10:06→21:26)
[2018-12-08] MEDS: CEFTRIAXONE SODIUM IVPB SCH ×2 (10:06→21:26)
--- NOTE | 2018-12-08 12:45 | RAD ---
EXAM DESCRIPTION: Hand,Right 3 Views CLINICAL HISTORY: trauma to dorsum of rt hand - cat bite COMPARISON: None Available. TECHNIQUE: AP, LATERAL, AND OBLIQUE FINDINGS: The visualized bones appear poorly mineralized. Significant degenerative changes are identified in the carpometacarpal and interphalangeal joints throughout the hand. No acute fracture is visualized. The soft tissues appear grossly unremarkable. IMPRESSION: Osteopenia. No definite acute fracture is visualized radiographically. Electronically signed by: Amber Arias MD 12/08/2018 12:42 PM [facility]
[2018-12-08] MEDS ORDERED: HYDROcodone 5MG/APAP 325MG 1 EA TAB PO PRN (16:17)
[2018-12-08] MEDS: BIFIDOBACTERIUM INFANTIS 4 MG CAP PO SCH (16:39)
[2018-12-08] MEDS ORDERED: KETOROLAC TROMETHAMINE INJ 30 MG/ML VIAL IV ONE (18:36)
[2018-12-08] MEDS ORDERED: SODIUM CHLORIDE 0.9% 50ML 50 ML ONE (19:29)
[2018-12-08] MEDS: methylPREDNISolone SODIUM SUC 40 MG/ML VIAL IV SCH ×2 (19:44→23:44)
[2018-12-08] MEDS ORDERED: ENOXAPARIN SODIUM 40 MG/0.4 ML SYG SUBCU SCH (21:00)
[2018-12-08] MEDS: SODIUM CHLORIDE 0.9% (FLUSH) 10 ML SYG IV PRN (23:52)
[2018-12-09] MEDS: metroNIDAZOLE IV PREMIX 500MG 500 MG in PREMIX BAG 1 BAG IVPB SCH ×2 (02:36→11:25)
[2018-12-09] MEDS: methylPREDNISolone SODIUM SUC 40 MG/ML VIAL IV SCH (05:36)
[2018-12-09] MEDS: SODIUM CHLORIDE 0.9% (FLUSH) 10 ML SYG IV PRN ×3 (05:37→11:26)
[2018-12-09] MEDS: OMEPRAZOLE CAP 20 MG CAP PO SCH (05:37)
[2018-12-09] MEDS ORDERED: cefTRIAXone SODIUM 1 GM VIAL ONE (07:45)
[2018-12-09] MEDS ORDERED: SODIUM CHLORIDE 0.9% 50ML 50 ML ONE (07:46)
--- NOTE | 2018-12-09 08:38 | PN ---
SUPERVISING PHYSICIAN: Derek Robbins MD DATE: 12/08/18 SUBJECTIVE: The patient notes that she feels much better this morning. She is no longer having nausea, no longer having any abdominal pain. Her hand is still swollen and sore but again, feels better than yesterday. She is not having any other complications. No chest pain or shortness of breath since starting antibiotics. OBJECTIVE: VITAL SIGNS: Temperature 98.3, pulse 56, blood pressure 118/74, saturations 95% on room air. I&Os are well-balanced, weight 57.7 kg. CHEST: Lungs are clear to auscultation . HEART: Regular rate and rhythm. ABDOMEN: Soft, non-tender, positive bowel sounds. EXTREMITIES: Right hand continues to show an area of ecchymosis to the dorsum of the hand which has now extended down into the wrist into the proximal aspect to the hand and radius. She does continue to have some difficulty with range of motion with some pain on palpation. Other extremities without any cyanosis, clubbing, or edema. NEUROLOGIC: She is alert and oriented x3. LABORATORY: White count now normalized to 10,000. Hemoglobin 12.6, hematocrit 30.3, platelet count 185,000. Differential shows to be without a left shift. Chemistries from yesterday show normal electrolytes. BUN 12, creatinine 0.56. Magnesium had normalized at 1.9. Liver functions all showing to be within normal limits. RADIOLOGY: X-ray of the right hand is pending. She had an abdominal x-ray this morning and per radiology interpretation shows no specific radiographic findings for the abdominal pain. MICROBIOLOGY: Blood cultures are pending. ASSESSMENT: 1. :Left lower quadrant abdominal pain with findings consistent with colonic enteritis, likely viral versus bacterial showing improvement with initiating antibiotics. 2. Moderate obstipation with history of chronic constipation improving with enemas, stool softeners and is near baseline level. 3. Cellulitis to the right hand secondary to a cat bite with patient showing systemic and parenteral response with low-grade fever and leukocytosis requiring initiation for parenteral antibiotics and showing improvement with patient being high risk secondary to underlying comorbidities and advanced age.. 4. Electrolyte imbalance to include hypokalemia, hyponatremia, resolved with fluid management. 5. General malaise, undetermined etiology, although probably more related to current underlying infectious process from cat bite on the right hand, showing some resolution with treatment with antibiotics. 6. History of multiple compression fractures involving both the thoracic and lumbar spine previously at T11 through T12 and past lumbar radiculopathy. 7. History of hypertension. 8. History of osteoporosis,. 9. History of anxiety and depression. PLAN: Will continue with current plan of care at this point with antibiotics to treat the cellulitis. She does show improvement, antibiotic coverage will be with Rocephin and Flagyl. Will go ahead and get an x-ray of the right hand and encourage her to keep the hand elevated. Anticipate probably discharging tomorrow but will continue to monitor and treat as needed. Plan to follow labs closely in the morning. Until she can transition to outpatient management, we will continue to monitor and treat as needed. #[id number] [facility]
[2018-12-09] MEDS: BIFIDOBACTERIUM INFANTIS 4 MG CAP PO SCH (09:17)
[2018-12-09] MEDS: CITALOPRAM HBR 20 MG TAB PO SCH (09:17)
[2018-12-09] MEDS: PREGABALIN 25 MG CAP PO SCH (09:17)
[2018-12-09] MEDS: POLYETHYLENE GLYCOL 3350 17 GM PCKT PO SCH (09:17)
[2018-12-09] MEDS: MAGNESIUM HYDROXIDE 30 ML UD PO SCH (09:17)
[2018-12-09] MEDS: SODIUM CHLORIDE 0.9% (FLUSH) 10 ML SYG IV SCH (09:18)
[2018-12-09 10:12] VITALS: O2SAT 94
[2018-12-09] MEDS: SODIUM CHLORIDE 0.9% IVPB SCH (10:25)
[2018-12-09] MEDS: CEFTRIAXONE SODIUM IVPB SCH (10:25)
[2018-12-09] MEDS ORDERED: metroNIDAZOLE IV PREMIX 500MG 100 ML IVPB ONE (11:18)
[2018-12-09 13:55] VITALS: BP 126/73; TEMP 98.1
== END 2018-12-09 15:00 | disposition home health service (06) ==
LOC: ER 19:37 → MS 23:27
PROVIDERS: ADMIT Nurse Practitioner Acute Care; ATTEND Nurse Practitioner Family
DX: K52.9 Noninfective gastroenteritis and colitis, unspecified (principal); K59.09 Other constipation; L03.113 Cellulitis of right upper limb; S60.571A Other superficial bite of hand of right hand, initial encounter; E87.6 Hypokalemia; E87.1 Hypo-osmolality and hyponatremia; E87.8 Other disorders of electrolyte and fluid balance, not elsewhere classified; R53.81 Other malaise; M80.88XA Other osteoporosis with current pathological fracture, vertebra(e), initial encounter for fracture; F41.9 Anxiety disorder, unspecified; F32.9 Major depressive disorder, single episode, unspecified; I11.9 Hypertensive heart disease without heart failure; E78.5 Hyperlipidemia, unspecified; K57.30 Diverticulosis of large intestine without perforation or abscess without bleeding; K44.9 Diaphragmatic hernia without obstruction or gangrene; W55.01XA Bitten by cat, initial encounter; Y92.009 Unspecified place in unspecified non-institutional (private) residence as the place of occurrence of the external cause; Z79.899 Other long term (current) drug therapy; Z79.891 Long term (current) use of opiate analgesic; Z88.0 Allergy status to penicillin; Z88.6 Allergy status to analgesic agent; Z88.8 Allergy status to other drugs, medicaments and biological substances; Z87.891 Personal history of nicotine dependence; Z96.642 Presence of left artificial hip joint
CPT/HCPCS: 96366 ×3; 96367; 96365; 96375; 96376 ×2; 96372; J0696 ×5; J1885; J1030 ×2; J3490 ×7; J7030; A4216 ×2; J1650; J3480; J7050 ×3; 80048 ×2; 80053; 36415 ×4; 84550; 81001; 80076; 85025 ×3; 87040 ×2; 83735; 83605; 74019 ×2; 73130; 74177; 94760 ×4; 97530; G8978; G8979; 97162; 99285; G0378

== ENCOUNTER 2018-12-18 11:13 | Emergency (ER) | payer MEDICARE, OTHER ==
--- NOTE | 2018-12-18 11:52 | ED.PDOC ---
History of Present Illness - General Chief Complaint: GI Problem Stated Complaint: weakness and diarrhea Time Seen by Provider: 12/18/18 11:28 Information Source: patient, RN notes reviewed, EMS Exam Limitations: no limitations - History of Present Illness Initial Comments: Patient comes in via EMS for diarrhea and weakness. Patient states that on the she was seen for left foot pain and swelling. U/S was ordered and was negative for DVT and she was started on a diuretic and Tylenol # 3. She states the foot continue to hurt and the diuretic only helped a little. Patient then began having some nausea and abdominal pain. On the she was seen in in the ER and CT showed some fluid consistent with enteritis but no diverticulitis. She was given IVF and started on antibiotics and that did seem to help. She was sent home on antibiotics but now having uncontrollable diarrhea and severe weakness. She was also found to have an infection on her right hand from a cat bit. Patient states that is actually what the antibiotics were originally started for. She states " I am just so weak". Abdominal Pain Onset Location: generalized abdomen Pain Radiation: no radiation Quality: moderate, cramping, intermittent Timing/Duration: 1 week Improving Factors: nothing Worsening Factors: nothing Associated Symptoms: weakness Review of Systems - Review of Systems Constitutional: States: weakness. Denies: chills, fever EENTM: States: no symptoms reported. Denies: blurred vision, tearing, ear pain, nose pain, nose congestion Respiratory: States: no symptoms reported. Denies: cough, short of breath, wheezing Cardiology: States: no symptoms reported. Denies: chest pain, edema, palpitations Gastrointestinal/Abdominal: States: see HPI, abdominal pain, diarrhea, nausea Genitourinary: States: no symptoms reported Musculoskeletal: States: no symptoms reported Skin: States: no symptoms reported Past Medical History (General) - Patient Medical History Hx Seizures: No Hx Stroke: No Hx Dementia: No Hx Asthma: No Hx of COPD: No Hx Cardiac Disorders: No Hx Congestive Heart Failure: No Hx Pacemaker: No Hx Hypertension: Yes - no longer on meds for it Hx Thyroid Disease: No Hx Diabetes: No Hx Gastroesophageal Reflux: No Hx Renal Disease: No Hx Cancer: No Hx of HIV: No Hx Hepatitis C: No Hx MRSA: No - Vaccination History Hx Tetanus, Diphtheria Vaccination: No Hx Influenza Vaccination: No Hx Pneumococcal Vaccination: No - Social History Hx Tobacco Use: Yes Hx Chewing Tobacco Use: No Hx Alcohol Use: No Hx Substance Use: No Hx Substance Use Treatment: No Hx Depression: No Hx Physical Abuse: No Hx Emotional Abuse: No Hx Suspected Abuse: No - Female History Patient : No Family Medical History - Family History Father Living Status: Age at (years of age): 84 Cause of : MVA Hx Family Asthma: No Hx Family Congestive Heart Failure: No Hx Family Hypertension: No Hx Family Stroke: No Hx Cardiac Disease: No Hx Family Diabetes: Yes Hx Family Cancer: No Mother Family History: No Known Living Status: Age at (years of age): 84 Cause of : Loss of blood from heart cath. Hx Family Asthma: No Hx Family Congestive Heart Failure: Yes - Mother Hx Family Hypertension: Yes - Patient Hx Family Stroke: No Hx Cardiac Disease: Yes - Patient/Mother Hx Family Diabetes: Yes - Father Hx Family Cancer: Yes - Brother Physical Exam - Physical Exam General Appearance: Frail, No apparent distress, Ill Appearing Eyes, Ears, Nose, Throat Exam: PERRL/EOMI, normal ENT inspection, TMs normal, pharynx normal, other - dry mucous membranes Neck: non-tender, full range of motion, supple, normal inspection Respiratory: chest non-tender, lungs clear, normal breath sounds Cardiovascular/Chest: normal peripheral pulses, regular rate, rhythm, no edema Peripheral Pulses: No deficit Gastrointestinal/Abdominal: normal bowel sounds, soft, tenderness - diffusely with no point tenderness Extremity: non-tender, normal inspection, no pedal edema, other - mild edema no calor no erythema to right hand Neurologic: alert Progress - Progress Progress: 12/18/18 12:49 after 1 L NS patient remains very weak. her elderly states she is too weak for him to take care of her at home and needs help. She states she cannot get up by herself like this. with her age and level of weakness and clinic dehydration she is at high risk for rapid decompensation. will consult with senior solutions consultant to see if we can observe her and give supportive care for the diarrhea. - Results/Orders Results/Orders: 12/18/18 12:45 Sodium Chloride 0.9% 1000ML [Ns 1000 ml] 1,000 ml IVS ONCE Laboratory Results WBC 7.2 K/mm3 (4.8-10.8) 12/18/18 11:29 RBC 4.53 M/mm3 (4.20-5.40) 12/18/18 11:29 Hgb 14.1 gm/dL (12.0-16.0) 12/18/18 11:29 Hct 42.6 % (36.0-47.0) 12/18/18 11:29 MCV 94.2 fl (81.0-99.0) 12/18/18 11:29 MCH 31.1 pg (27.0-31.0) H 12/18/18 11:29 MCHC 33.0 g/dL (33.0-37.0) 12/18/18 11:29 RDW 13.5 % (11.5-14.5) 12/18/18 11:29 Plt Count 303 K/mm3 (130-400) 12/18/18 11:29 MPV 8.0 fl (7.40-10.4) 12/18/18 11:29 Absolute Neuts (auto) 3.80 K/uL (1.8-6.8) 12/18/18 11:29 Absolute Lymphs (auto) 2.80 K/uL (1.0-3.4) 12/18/18 11:29 Absolute Monos (auto) 0.60 K/uL (0.2-0.8) 12/18/18 11:29 Absolute Eos (auto) 0.00 K/uL (0.0-0.4) 12/18/18 11:29 Absolute Basos (auto) 0.00 K/uL (0.0-0.1) 12/18/18 11:29 Neutrophils % 52.7 % (42.0-78.0) 12/18/18 11:29 Lymphocytes % 38.7 % (20.0-50.0) 12/18/18 11:29 Monocytes % 7.8 % (2.0-9.0) 12/18/18 11:29 Eosinophils % 0.6 % (1.0-5.0) L 12/18/18 11:29 Basophils % 0.2 % (0.0-2.0) 12/18/18 11:29 Sodium 138 mmol/L (135-145) 12/18/18 11:29 Potassium 3.2 mmol/L (3.6-5.0) L 12/18/18 11:29 Chloride 104 mmol/L (101-111) 12/18/18 11:29 Carbon Dioxide 25 mmol/L (21-31) 12/18/18 11:29 Anion Gap 12.2 (12-18) 12/18/18 11:29 BUN 14 mg/dL (7-18) 12/18/18 11:29 Creatinine 0.54 mg/dL (0.6-1.3) L 12/18/18 11:29 BUN/Creatinine Ratio 25.9 (10-20) H 12/18/18 11:29 Random Glucose 103 mg/dL (70-105) 12/18/18 11:29 Serum Osmolality 276.4 mOsm/L (275-295) 12/18/18 11:29 Calcium 9.0 mg/dL (8.4-10.2) 12/18/18 11:29 Total Bilirubin 0.7 mg/dL (0.2-1.0) 12/18/18 11:29 AST 19 IU/L (10-42) 12/18/18 11:29 ALT 12 IU/L (10-60) 12/18/18 11:29 Alkaline Phosphatase 95 IU/L (42-121) 12/18/18 11:29 Serum Total Protein 7.3 gm/dL (6.4-8.2) 12/18/18 11:29 Albumin 3.4 g/dl (3.2-5.5) 12/18/18 11:29 Globulin 3.9 gm/dL (2.3-3.5) H 12/18/18 11:29 Albumin/Globulin Ratio 0.9 (1.1-1.9) L 12/18/18 11:29 Departure - Departure Clinical Impression: Acute diarrhea, Dehydration Disposition: Admit Patient Condition: Fair Departure Forms: ED Discharge - Pt. Copy, Patient Portal Self Enrollment Referrals: [place] U[place] III, MD [Primary Care Provider] - 1-2 Weeks Home Medications: Ambulatory Orders ALPRAZolam [Xanax] 0.25 mg PO BID PRN 10/03/14 Pregabalin [Lyrica] 50 mg PO BID 10/03/14 Citalopram Hydrobromide [Celexa] 40 mg PO DAILY 09/25/17 Acetaminophen [Tylenol] 650 mg PO Q6H PRN tab 10/02/17 Polyethylene Glycol 3350 [Miralax] 17 gm PO DAILY pckt 10/02/17 Bifidobacterium Infantis [Align] 4 mg PO DAILY cap 12/09/18 Doxycycline (Monohydrate) [Doxycycline] 100 mg PO BID 21 Days #42 tab 12/09/18 Methylprednisolone [Medrol Dose Gavin] 4 mg PO DAILY 6 Days #21 tab 12/09/18 Aspirin [Aspirin EC] 81 mg PO DAILY 12/18/18 Docusate Sodium [Colace Cap] 100 mg PO BID 12/18/18 Decision To Admit - Decistion To Admit Decision to Admit Reason: Admit from ER Decision to Admit Date: 12/18/18 Decision to Admit Time: 14:00
[2018-12-18 12:15] VITALS: TEMP 98.6
--- NOTE | 2018-12-18 12:29 | RAD ---
EXAM DESCRIPTION: Abdomen 1 View CLINICAL HISTORY: 88 years Female, pain COMPARISON: Abdominal radiograph 12/08/2018 TECHNIQUE: 2 views of the abdomen. IMPRESSION: Visualized portions of the thorax are unremarkable. Bowel gas seen within nondilated colon. There is no pathologic calcification overlying the renal shadows or expected course of the ureters. No free intraperitoneal air, portal venous gas, or pneumatosis is present. Vertebral augmentation within lower thoracic vertebral bodies. Lumbar spondylosis with slight dextro curvature centered at L3. 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 Electronically signed by: Gm Catalan MD 12/18/2018 12:26 PM [facility]
[2018-12-18] MEDS ORDERED: SODIUM CHLORIDE 0.9% 1000ML 1,000 ML IVS ONE (12:45)
[2018-12-18] MEDS ORDERED: ACETAMINOPHEN 325 MG TAB PO ONE (15:06)
--- NOTE | 2018-12-18 15:07 | PCM.H&P ---
History of Present Illnes - History of Present Illness Reason for Visit: Diarrhea and weakness History of Present Illness: Patient has had several days of profuse diarrhea and subsequent weakness. She was started on Tylenol #3 after an acute epidose of LLE swelling and pain. US during that admission showed no DVT. She was started on Miralax for constipation from the T#3, but was given too much per the family. She was also started on Antibiotics during that admission several days ago for a Cat bite. Since that admission her diarrhea has gotten out of control. 6-7 watery diarrhea episodes last night alone. She feels weak, and family is concerned about her safety. After the last admission, the patient's family and PCP Dr. Urrutia were attempting to arrange an admisison to a [facility] for rehab at least, they are pending a decision. Denies fever/chills, minimal LLE pain/soreness. No confusion per the family today. - Past Medical History Cardiac: HTN - Not on medication currently - Past Social History Alcohol: None Drugs: None Lives: With Family Domestic Violence: Negative Review of Systems - Review of Systems Constitutional: States: Weakness. Denies: Fever, Chills, Malaise ENT: States: Other - Dry mouth. Denies: Mouth Pain Respiratory: Denies: Cough, Shortness of Breath Cardiovascular: Denies: Chest Pain, Palpitations Gastrointestinal: States: Diarrhea, Other - flatulent. Denies: Nausea, Vomiting, Abdominal Pain Genitourinary: Denies: Dysuria, Frequency Musculoskeletal: States: Leg Pain - LLE. Denies: Arm Pain, Back Pain Skin: Denies: Rash, Lesions Neurological: States: Weakness. Denies: Change in Speech, Confusion - Medications/Allergies Allergies/Adverse Reactions: Allergies Allergy/AdvReac Type Severity Reaction Status Date / Time Diphenhydramine Allergy Vomitting Verified 03/02/17 04:42 [From Benadryl] Meperidine [From Demerol HCl] Allergy Verified 03/02/17 04:42 Amoxicillin [From Amoxil] AdvReac Verified 03/02/17 04:42 Calcitonin [From Miacalcin] AdvReac Verified 03/02/17 04:42 CI Pigment Blue 63 AdvReac Headache Verified 03/02/17 04:42 [From Bystolic] Escitalopram [From Lexapro] AdvReac Headache Verified 03/02/17 04:42 Nebivolol [From Bystolic] AdvReac Headache Verified 03/02/17 04:42 Phenol [From Forteo] AdvReac Verified 03/02/17 04:42 Raloxifene [From Evista] AdvReac Verified 03/02/17 04:42 Risedronate [From Actonel] AdvReac Verified 03/02/17 04:42 Sorbitan [From Bystolic] AdvReac Headache Verified 03/02/17 04:42 Teriparatide [From Forteo] AdvReac Verified 03/02/17 04:42 Yellow Dye [From Bystolic] AdvReac Headache Verified 03/02/17 04:42 Exam - Exam Vital Signs: Vital Signs (72 hours) 12/18/18 12/18/18 12/18/18 11:13 11:30 12:13 Temperature 98.6 F Pulse Rate [ 80 70 69 left brachial] Respiratory 24 Rate Blood Pressure 188/93 175/91 152/72 [right brachial ] O2 Sat by Pulse 95 93 L 94 L Oximetry General: Alert, Oriented x3, Cooperative, Mild distress HEENT: Other - Dry mucous membranes Lungs: Clear to auscultation, Normal air movement Cardiovascular: Regular rate, No murmurs Abdomen: Soft, No masses, Other - Hyperactive BS, TTP diffuse but minimal Skin: No rashes, No breakdown Psych/Mental Status: Mental status NL, Mood NL Assessment/Plan - Assessment/Plan Assessment: 1. Mild dehydration without electrolyte abnormalities 2. Diarrhea, acute 3. Weakness, risk for falls Plan: After discussing with the family, it was found that she was already being evaluated for acceptance to a NH from the previous admission. While working up for possible admission, we were notified by the NH that she had been accepted and they could take the patient today 12/18/18. The daughter and were present and understood the plan, which was even coordinated by the daughter herself. Her PCP is willing to write NH admit orders according to their latest visit and the daughter's report. Discussed plan with the ED doctor, Patient is currently locating transportation with family. I discussed the need for CDiff testing once at the NH. And likely will need IVF at or below maintenance.
[2018-12-18 15:58] VITALS: BP 163/87; O2SAT 93
== END 2018-12-18 15:35 ==
LOC: ER 11:13 → MS 14:40 → UNDOADMOB 14:40 → ER 15:35
DX: R19.7 Diarrhea, unspecified (principal); E86.0 Dehydration; R53.1 Weakness; I10 Essential (primary) hypertension; Z87.891 Personal history of nicotine dependence
CPT/HCPCS: 74018; 80053; 85025; J7030

== ENCOUNTER → 2019-01-26 | Outpatient (CLI) | payer MEDICARE ==
--- NOTE | 2019-01-27 16:04 | MRI ---
EXAM DESCRIPTION: Lumbar Spine w/o Contrast CLINICAL HISTORY: LOW BACK PAIN COMPARISON: March 13, 2017 TECHNIQUE: MRI of the lumbar spine is performed according to our usual protocol with axial and sagittal multi sequence imaging. FINDINGS: MR lumbar spine demonstrates previous moderately severe T12 compression deformity with vertebral augmentation that was evident as an acute compression fracture in 2017 with subsequent compression deformity and augmentation at the T11 level to a milder degree also noted. There is old impaction of the superior endplate of L2 with mild loss of central height with no significant marrow edema and little changed from 2017 examination. There is however a new mild estimated 30% L1 compression deformity with mottled marrow edema and impaction of the superior endplate that is new from prior study and represents an acute compression deformity without retropulsed bone. The conus is positioned at the inferior L1 level. Modest gibbus deformity at the T11-12 level has developed with bowing of the distal cord around the area of angulation without severe central canal stenosis. Since prior study, also noted is mild impaction of the superior endplate of L3 but there is no associated marrow edema suggesting this represents a interval injury since March 2017 but a remote abnormality with subsequent healing. The L4 and L5 vertebral bodies remain intact. The retroperitoneal and paraspinous structures are unremarkable. L1-2: Disc desiccation with annular bulge with adequate canal. Acute marrow edema and the superior endplate compression deformity of L1 noted. Moderate bilateral L1 foraminal narrowing noted. Old mild impaction superior endplate of L2 also noted. L2-3: Preserved disc height and disc signal intensity with broad-based annular bulge with mild facet arthropathy with modestly narrowed L2 neural foramina. Remote but interval mild superior L3 endplate impaction fracture without marrow edema. L3-4: Mild annular bulge and moderate facet arthropathy bilaterally L3-4 with preserved disc height and disc signal intensity. Borderline circumferential spinal canal stenosis with modest narrowing both L3 neural foramina. L4-5: Partially preserved disc signal intensity with mild annular bulge with moderate right greater than left facet hypertrophy with moderate right and left foraminal narrowing. No significant central stenosis. L5-S1: Disc desiccation and mild annular bulge with right greater than left facet arthropathy with adequate AP diameter but moderate lateral narrowing of the thecal sac with bilateral moderate L5 foraminal narrowing. No lateralizing herniation seen. IMPRESSION: 1. Interval vertebral augmentation of the T12 vertebral body as well as interval T11 moderate compression deformity with vertebral augmentation with development of modest gibbus deformity at the T11-12 level without severe central canal stenosis. 2. Old superior endplate L2 compression deformity without significant loss of height and interval but old healed superior endplate L3 compression deformity without acute marrow edema. No further evaluation of these levels recommended. 3. Acute new edematous mild L1 superior endplate compression deformity with approximate 30% loss of height. 4. Multilevel annular bulges without lateralizing herniations with bilateral multilevel foraminal stenosis. 5. Borderline multifactoral circumferential stenosis L3-4 level and at least mild transverse diameter canal stenosis from facet hypertrophy at L5-S1. Electronically signed by: Derek Layton MD 01/27/2019 4:01 PM CDT
== END ==
LOC: MRI 13:05
PROVIDERS: ATTEND Family Medicine
DX: M51.84 Other intervertebral disc disorders, thoracic region (principal); M51.86 Other intervertebral disc disorders, lumbar region; M48.061 Spinal stenosis, lumbar region without neurogenic claudication

== ENCOUNTER 2019-07-27 12:20 | Emergency (ER) | payer MEDICARE ==
[2019-07-27] MEDS ORDERED: ALUM & MAG HYDROX-SIMETHICONE 30 ML, LIDOCAINE VISCOUS 2% 15 ML PO ONE ×2 (12:41)
[2019-07-27] MEDS ORDERED: ALUM & MAG HYDROX-SIMETHICONE 30 ML UD ONE (13:00)
[2019-07-27] MEDS ORDERED: LIDOCAINE HCL 2% (MOUTH-THROAT) 15 ML UD ONE (13:00)
--- NOTE | 2019-07-27 13:23 | RAD ---
EXAM DESCRIPTION: Abdomen Series CLINICAL HISTORY: 89 years Female, feeling flushed, achey abd pain generalized COMPARISON: None. Findings: No acute cardiopulmonary abnormality. The lungs are hyperexpanded. Tortuous thoracic aorta. Atherosclerotic plaque in the thoracic aorta. No pneumothorax. No pleural effusion. The lungs are clear bilaterally. No pulmonary vascular congestion. Multilevel vertebral augmentation. No free air beneath diaphragm. Nonobstructive bowel gas pattern. No air-fluid level. No suspicious calcification. Marked osteopenia. Left hip arthroplasty. No acute osseous abnormality is identified. IMPRESSION: Nonobstructive bowel gas pattern. Electronically signed by: Paolo Haas MD 07/27/2019 1:22 PM CDT
[2019-07-27] MEDS ORDERED: SUCRALFATE 1 GM/10 ML 1 GM UD PO ONE (15:08)
[2019-07-27] MEDS ORDERED: ALUMINUM & MAGNESIUM HYDROXIDE 30 ML UD PO ONE (15:08)
[2019-07-27] MEDS ORDERED: ALPRAZolam 0.25 MG TAB PO ONE (15:08)
[2019-07-27] MEDS ORDERED: PANTOPRAZOLE SODIUM TAB 40 MG PO ONE (15:08)
--- NOTE | 2019-07-27 15:17 | ED.PDOC ---
History of Present Illness - General Chief Complaint: General Stated Complaint: "burning up",weak,urinating more Time Seen by Provider: 07/27/19 12:22 Source: patient Exam Limitations: clinical condition - History of Present Illness Initial Comments: the patient is an 89-year-old female presenting with caregiver secondary to a feeling of burning all over. She thinks it started yesterday. She reports that she slept poorly. She does have some significant dementia along with some very significant anxiety. she does report some abdominal discomfort. It is not really localize. It is more generalized. Symptoms did actually essentially go away briefly with a GI cocktail. No vomiting though she does report a little bit of nausea. No syncope. No trauma. The patient is getting very anxious as she is due her anxiety medications. No definite fever. No history of recurrent urinary tract infections. She does have a history of some mild diverticulitis but has not been having point abdominal pain. She does have a history of constipation but has been going to the bathroom well. Timing/Duration: other - about 16 hours Severity: moderate Improving Factors: medication Worsening Factors: nothing Associated Symptoms: nausea/vomiting - nausea but no vomiting Allergies/Adverse Reactions: Allergies Diphenhydramine [From Benadryl] Allergy (Verified 03/02/17 04:42) Vomitting Meperidine [From Demerol HCl] Allergy (Verified 03/02/17 04:42) Amoxicillin [From Amoxil] Adverse Reaction (Verified 03/02/17 04:42) Calcitonin [From Miacalcin] Adverse Reaction (Verified 03/02/17 04:42) CI Pigment Blue 63 [From Bystolic] Adverse Reaction (Verified 03/02/17 04:42) Headache Escitalopram [From Lexapro] Adverse Reaction (Verified 03/02/17 04:42) Headache Nebivolol [From Bystolic] Adverse Reaction (Verified 03/02/17 04:42) Headache Phenol [From Forteo] Adverse Reaction (Verified 03/02/17 04:42) Raloxifene [From Evista] Adverse Reaction (Verified 03/02/17 04:42) Risedronate [From Actonel] Adverse Reaction (Verified 03/02/17 04:42) Sorbitan [From Bystolic] Adverse Reaction (Verified 03/02/17 04:42) Headache Teriparatide [From Forteo] Adverse Reaction (Verified 03/02/17 04:42) Yellow Dye [From Bystolic] Adverse Reaction (Verified 03/02/17 04:42) Headache Home Medications: Ambulatory Orders ALPRAZolam [Xanax] 0.25 mg PO BID PRN 10/03/14 Pregabalin [Lyrica] 50 mg PO BID 10/03/14 Citalopram Hydrobromide [Celexa] 40 mg PO DAILY 09/25/17 Famotidine [Pepcid Tab] 20 mg PO BID #60 tab 07/27/19 Ondansetron Odt [Zofran ODT] 4 mg PO Q8HR PRN #5 tab 07/27/19 Sucralfate Tab [Carafate Tab] 1 gm PO QID #120 tab 07/27/19 Review of Systems - Review of Systems Constitutional: States: no symptoms reported EENTM: States: no symptoms reported Respiratory: States: no symptoms reported Cardiology: States: no symptoms reported Gastrointestinal/Abdominal: States: see HPI, abdominal pain, nausea Genitourinary: States: no symptoms reported Musculoskeletal: States: no symptoms reported Skin: States: no symptoms reported Neurological: States: anxiety Endocrine: States: no symptoms reported All other Systems: No Change from Baseline Past Medical History (General) - Patient Medical History Hx Seizures: No Hx Stroke: No Hx Dementia: No Hx Asthma: No Hx of COPD: No Hx Cardiac Disorders: No Hx Congestive Heart Failure: No Hx Pacemaker: No Hx Hypertension: Yes - no longer on meds for it Hx Thyroid Disease: No Hx Diabetes: No Hx Gastroesophageal Reflux: No Hx Renal Disease: No Hx Cancer: No Hx of HIV: No Hx Hepatitis C: No Hx MRSA: No Surgical History: Hysterectomy - Vaccination History Hx Tetanus, Diphtheria Vaccination: No Hx Influenza Vaccination: No Hx Pneumococcal Vaccination: Yes - Social History Hx Tobacco Use: Yes Hx Chewing Tobacco Use: No Hx Alcohol Use: No Hx Substance Use: No Hx Substance Use Treatment: No Hx Depression: No Hx Physical Abuse: No Hx Emotional Abuse: No Hx Suspected Abuse: No - Female History Patient : No Family Medical History - Family History Father Family History: Unknown Living Status: Age at (years of age): 84 Cause of : MVA Hx Family Asthma: No Hx Family Congestive Heart Failure: No Hx Family Hypertension: No Hx Family Stroke: No Hx Cardiac Disease: No Hx Family Diabetes: Yes Hx Family Cancer: No Mother Family History: No Known Living Status: Age at (years of age): 84 Cause of : Loss of blood from heart cath. Hx Family Asthma: No Hx Family Congestive Heart Failure: Yes - Mother Hx Family Hypertension: Yes - Patient Hx Family Stroke: No Hx Cardiac Disease: Yes - Patient/Mother Hx Family Diabetes: Yes - Father Hx Family Cancer: Yes - Brother Physical Exam - Physical Exam General Appearance: Alert, Anxious Eye Exam: bilateral normal Ears, Nose, Throat: hearing grossly normal, normal ENT inspection Neck: full range of motion, supple Respiratory: lungs clear, normal breath sounds, no respiratory distress, no accessory muscle use Cardiovascular/Chest: normal peripheral pulses, no edema, other - regular rate Peripheral Pulses: radial,right: 2+, radial,left: 2+ Gastrointestinal/Abdominal: soft, other - no guarding. No point tenderness. No definite palpable mass. No rebound or peritoneal signs. Maybe a little more epigastric discomfort than otherwise. Rectal Exam: deferred Extremity: no pedal edema, no calf tenderness, normal capillary refill Neurologic: foundry operator II-XII nml as tested, alert, other - the patient does have significant dementia but she does understand that she is in the hospital and she does know her caregiver. She is very anxious. Skin Exam: normal color Comments: Vital Signs - 24 hr 07/27/19 07/27/19 07/27/19 12:31 13:39 13:55 Temperature 97.7 F Pulse Rate [ 85 68 Left Brachial] Respiratory 20 18 20 Rate Blood Pressure 170/87 149/70 [Left Arm] O2 Sat by Pulse 98 94 L Oximetry 07/27/19 14:47 Temperature Pulse Rate [ 77 Left Brachial] Respiratory 20 Rate Blood Pressure 164/83 [Left Arm] O2 Sat by Pulse 95 Oximetry Progress - Progress Progress: 07/27/19 15:19 the patient is an 89-year-old female presenting to the emergency room secondary to feeling like she is burning up with some abdominal discomfort. Laboratory work is reassuring as is the acute abdominal series x-rays and vital signs. The patient actually responded very well to a GI cocktail. There is no point tenderness as one would expect with a diverticulitis. The patient does have significant anxiety complicating the exam. The patient is going to be written for Carafate and Pepcid for the next few weeks to help reduce what is most likely a gastritis giving her symptoms. they also need to pickling grader some Maalox or Mylanta for as needed use for the next few days until the other medications get control. obviously if symptoms change or the patient starts developing a fever then additional imaging and possibly repeat lab work may be warranted. She should follow-up with her primary care doctor towards the end of the week. ER warnings were given.the patient will also be written for Zofran for as needed use. michelle tovar [phone] 07/27/19 15:26 - Results/Orders Results/Orders: acute abdominal series shows chronic findings only. No obvious new infiltrate. No bowel obstructiNo large constipation. No obvious free air. Laboratory Tests 07/27/19 07/27/19 07/27/19 12:55 12:55 12:55 WBC 7.2 RBC 4.29 Hgb 13.1 Hct 39.8 MCV 92.6 MCH 30.6 MCHC 33.1 RDW 14.8 H Plt Count 186 MPV 8.4 Absolute Neuts (auto) 4.50 Absolute Lymphs (auto) 2.40 Absolute Monos (auto) 0.30 Absolute Eos (auto) 0.00 Absolute Basos (auto) 0.00 Neutrophils % 62.0 Lymphocytes % 32.9 Monocytes % 4.6 Eosinophils % 0.1 L Basophils % 0.4 Sodium 139 Potassium 3.6 Chloride 102 Carbon Dioxide 21 Anion Gap 19.6 H BUN 14 Creatinine 0.68 BUN/Creatinine Ratio 20.6 H Random Glucose 109 H Serum Osmolality 278.6 Lactic Acid 0.8 Calcium 9.8 Magnesium 2.0 Total Bilirubin 0.6 AST 24 ALT 14 Alkaline Phosphatase 56 Creatine Kinase 85 CK-MB (CK-2) 2.7 CK-MB (CK-2) % Not Reportable Troponin I < 0.02 B-Natriuretic Peptide 140.0 H Serum Total Protein 7.5 Albumin 4.0 Globulin 3.5 Albumin/Globulin Ratio 1.1 Amylase 46 Lipase 26 TSH 1.16 Urine Color Urine Appearance Urine pH Ur Specific [place] Urine Protein Urine Glucose (UA) Urine Ketones Urine Blood Urine Nitrite Urine Bilirubin Urine Urobilinogen Ur Leukocyte Esterase Urine RBC Urine WBC Ur Epithelial Cells Ur Squamous Epith Cells Ur Transition Epith Cell Ur Renal Epithelial Cell Calcium Oxalate Crystal Uric Acid Crystals Triple Phos Crystals Other Crystals Amorphous Sediment Urine Bacteria Hyaline Casts Fine Granular Casts Coarse Granular Casts Waxy Casts RBC Casts WBC Casts Other Casts Urine Mucus Urine Other Urine Trichomonas Urine Yeast Urine Sperm Ur Oval Fat Bodies 07/27/19 07/27/19 13:45 14:20 WBC RBC Hgb Hct MCV MCH MCHC RDW Plt Count MPV Absolute Neuts (auto) Absolute Lymphs (auto) Absolute Monos (auto) Absolute Eos (auto) Absolute Basos (auto) Neutrophils % Lymphocytes % Monocytes % Eosinophils % Basophils % Sodium Potassium Chloride Carbon Dioxide Anion Gap BUN Creatinine BUN/Creatinine Ratio Random Glucose Serum Osmolality Lactic Acid Calcium Magnesium Total Bilirubin AST ALT Alkaline Phosphatase Creatine Kinase CK-MB (CK-2) CK-MB (CK-2) % Troponin I B-Natriuretic Peptide Serum Total Protein Albumin Globulin Albumin/Globulin Ratio Amylase Lipase TSH Urine Color Cancelled Yellow Urine Appearance Cancelled Clear Urine pH Cancelled 6.0 Ur Specific [place] Cancelled 1.020 Urine Protein Cancelled Negative Urine Glucose (UA) Cancelled Negative Urine Ketones Cancelled >=160 Urine Blood Cancelled Trace-intact H Urine Nitrite Cancelled Negative Urine Bilirubin Cancelled Small H Urine Urobilinogen Cancelled 0.2 Ur Leukocyte Esterase Cancelled Negative Urine RBC Cancelled 1-3 Urine WBC Cancelled 0-1 Ur Epithelial Cells Cancelled 1-3 Ur Squamous Epith Cells Cancelled Ur Transition Epith Cell Cancelled Ur Renal Epithelial Cell Cancelled Calcium Oxalate Crystal Cancelled Uric Acid Crystals Cancelled Triple Phos Crystals Cancelled Other Crystals Cancelled Amorphous Sediment Cancelled Urine Bacteria Cancelled Rare Hyaline Casts Cancelled Fine Granular Casts Cancelled Coarse Granular Casts Cancelled Waxy Casts Cancelled RBC Casts Cancelled WBC Casts Cancelled Other Casts Cancelled Urine Mucus Cancelled Trace Urine Other Cancelled Urine Trichomonas Cancelled Urine Yeast Cancelled Urine Sperm Cancelled Ur Oval Fat Bodies Cancelled Departure - Departure Clinical Impression: Gastritis Qualifiers: Gastritis type: unspecified gastritis Chronicity: acute Gastritis bleeding: without bleeding Qualified Code(s): K29.00 - Acute gastritis without bleeding Disposition: Discharge to Home or Self Care Condition: Fair Departure Forms: ED Discharge - Pt. Copy, Patient Portal Self Enrollment Diet: bland diet Activity: increase activity as tolerated Referrals: [place] III, MD [Primary Care Provider] - 1-5 Days Prescriptions: Ondansetron Odt [Zofran ODT] 4 mg PO Q8HR PRN #5 tab PRN Reason: Nausea--Moderate Famotidine [Pepcid Tab] 20 mg PO BID #60 tab Sucralfate Tab [Carafate Tab] 1 gm PO QID #120 tab Home Medications: Ambulatory Orders ALPRAZolam [Xanax] 0.25 mg PO BID PRN 10/03/14 Pregabalin [Lyrica] 50 mg PO BID 10/03/14 Citalopram Hydrobromide [Celexa] 40 mg PO DAILY 09/25/17 Famotidine [Pepcid Tab] 20 mg PO BID #60 tab 07/27/19 Ondansetron Odt [Zofran ODT] 4 mg PO Q8HR PRN #5 tab 07/27/19 Sucralfate Tab [Carafate Tab] 1 gm PO QID #120 tab 07/27/19 Additional Instructions: the patient is an 89-year-old female presenting to the emergency room secondary to feeling like she is burning up with some abdominal discomfort. Laboratory work is reassuring as is the acute abdominal series x-rays and vital signs. The patient actually responded very well to a GI cocktail. There is no point tenderness as one would expect with a diverticulitis. The patient does have significant anxiety complicating the exam. The patient is going to be written for Carafate and Pepcid for the next few weeks to help reduce what is most likely a gastritis giving her symptoms. they also need to pickling grader some Maalox or Mylanta for as needed use for the next few days until the other medications to control. he will be written for Zofran as well in case she starts having some nausea. obviously if symptoms change or the patient starts developing a fever then additional imaging and possibly repeat lab work may be warranted. She should follow-up with her primary care doctor towards the end of the week. ER warnings were given.
[2019-07-27 15:40] VITALS: BP 153/76; TEMP 97.2; O2SAT 96
== END 2019-07-27 15:40 | disposition home or self-care (01) ==
LOC: ER 12:20
DX: K29.00 Acute gastritis without bleeding (principal); F03.90 Unspecified dementia, unspecified severity, without behavioral disturbance, psychotic disturbance, mood disturbance, and anxiety; F41.9 Anxiety disorder, unspecified; Z87.891 Personal history of nicotine dependence; Z88.8 Allergy status to other drugs, medicaments and biological substances; Z88.1 Allergy status to other antibiotic agents; Z79.899 Other long term (current) drug therapy

== ENCOUNTER → 2020-01-25 | Outpatient (CLI) | payer MEDICARE | LOC: GMAL 11:21 | PROVIDERS: ATTEND Family Medicine | DX: E53.8 Deficiency of other specified B group vitamins (principal); E55.9 Vitamin D deficiency, unspecified; I10 Essential (primary) hypertension; E78.00 Pure hypercholesterolemia, unspecified ==

== ENCOUNTER → 2020-07-25 | Outpatient (CLI) | payer MEDICARE | LOC: GMAL 11:20 | PROVIDERS: ATTEND Family Medicine | DX: D51.3 Other dietary vitamin B12 deficiency anemia (principal); E53.9 Vitamin B deficiency, unspecified; E55.9 Vitamin D deficiency, unspecified; R53.83 Other fatigue; I10 Essential (primary) hypertension; Z79.899 Other long term (current) drug therapy; E66.9 Obesity, unspecified ==

== ENCOUNTER 2020-10-31 20:53 | Emergency (ER) | payer MEDICARE ==
[2020-10-31] MEDS ORDERED: ONDANSETRON INJ 4 MG/2 ML VIAL IV ONE (20:56)
[2020-10-31] MEDS: SODIUM CHLORIDE 0.9% (FLUSH) 10 ML SYG IV PRN ×3 (21:29→23:10)
[2020-10-31] MEDS ORDERED: SODIUM CHLORIDE 0.9% 1000ML 1,000 ML IVS ONE (21:37)
[2020-10-31] MEDS ORDERED: ACETAMINOPHEN 325 MG TAB ONE (21:53)
[2020-10-31] MEDS ORDERED: ACETAMINOPHEN 325 MG TAB PO ONE (21:58)
--- NOTE | 2020-10-31 22:30 | ED.PDOC ---
History of Present Illness - General Chief Complaint: Abdominal Pain Stated Complaint: abd pain Time Seen by Provider: 10/31/20 20:55 Information Source: patient, RN notes reviewed, Vital Signs reviewed, family - daughter Exam Limitations: no limitations - History of Present Illness Initial Comments: Patient is an 89-year-old white female who presents with complaints of abdominal pain. This pain is been worsening over the last 24 hours. Patient has a history of diverticulosis. The pain is sharp and stabbing in nature. It is waxing and waning in intensity. It is nonradiating. The pain level is moderate. It is generalized abdominal pain. It is similar to pain she has had in the past. Abdominal Pain Onset Location: generalized abdomen Pain Radiation: no radiation Quality: moderate, stabbing, waxing/waning Timing/Duration: 24 hours Improving Factors: nothing Worsening Factors: nothing Associated Symptoms: nausea/vomiting - Nausea only, swelling/mass in abdomen - Abdominal distention Review of Systems - Review of Systems Constitutional: States: no symptoms reported, see HPI. Denies: chills, fever, malaise, weakness EENTM: States: no symptoms reported. Denies: eye pain, blurred vision, double vision Respiratory: States: no symptoms reported. Denies: cough, orthopnea, short of breath, stridor, wheezing Cardiology: States: no symptoms reported. Denies: chest pain, palpitations, syncope Gastrointestinal/Abdominal: States: see HPI, abdominal pain, nausea. Denies: constipation, diarrhea, vomiting Genitourinary: States: no symptoms reported. Denies: dysuria, frequency Musculoskeletal: States: no symptoms reported. Denies: back pain, joint pain, neck pain Skin: States: no symptoms reported. Denies: change in color, rash Neurological: States: no symptoms reported. Denies: tingling, tremors, weakness Endocrine: States: no symptoms reported. Denies: increased hunger, increased thirst, increased urine Hematologic/Lymphatic: States: no symptoms reported. Denies: blood clots, easy bleeding All other Systems: No Change from Baseline Past Medical History (General) - Patient Medical History Hx Seizures: No Hx Stroke: No Hx Dementia: No Hx Asthma: No Hx of COPD: No Hx Cardiac Disorders: No Hx Congestive Heart Failure: No Hx Pacemaker: No Hx Hypertension: Yes - no longer on meds for it Hx Thyroid Disease: No Hx Diabetes: No Hx Gastroesophageal Reflux: No Hx Renal Disease: No Hx Cancer: No Hx of HIV: No Hx Hepatitis C: No Hx MRSA: No - Vaccination History Hx Tetanus, Diphtheria Vaccination: No Hx Influenza Vaccination: No Hx Pneumococcal Vaccination: Yes - Social History Hx Tobacco Use: Yes Hx Chewing Tobacco Use: No Hx Alcohol Use: No Hx Substance Use: No Hx Substance Use Treatment: No Hx Depression: No Hx Physical Abuse: No Hx Emotional Abuse: No Hx Suspected Abuse: No - Female History Patient : No Family Medical History - Family History Father Family History: Unknown Living Status: Age at (years of age): 84 Cause of : MVA Hx Family Asthma: No Hx Family Congestive Heart Failure: No Hx Family Hypertension: No Hx Family Stroke: No Hx Cardiac Disease: No Hx Family Diabetes: Yes Hx Family Cancer: No Mother Family History: No Known Living Status: Age at (years of age): 84 Cause of : Loss of blood from heart cath. Hx Family Asthma: No Hx Family Congestive Heart Failure: Yes - Mother Hx Family Hypertension: Yes - Patient Hx Family Stroke: No Hx Cardiac Disease: Yes - Patient/Mother Hx Family Diabetes: Yes - Father Hx Family Cancer: Yes - Brother Physical Exam - Physical Exam General Appearance: Alert, Anxious, Obvious distress, Well Developed, Well Groomed, Well Nourished Eyes, Ears, Nose, Throat Exam: PERRL/EOMI, pharynx normal - Except for dry mucous membranes Neck: non-tender, full range of motion, supple Respiratory: chest non-tender, lungs clear, normal breath sounds, no respiratory distress, no accessory muscle use Cardiovascular/Chest: normal peripheral pulses, regular rate, rhythm, no edema, no gallop, no JVD, no murmur Peripheral Pulses: No deficit Gastrointestinal/Abdominal: abnormal bowel sounds - Markedly diminished., distended, tenderness - Generalized. No peritoneal signs. Back Exam: normal inspection, no CVA tenderness, no vertebral tenderness Extremity: normal range of motion, non-tender, normal inspection Neurologic: core machine tender II-XII nml as tested, no motor/sensory deficits, alert, normal mood/affect, oriented x 3 Skin Exam: normal color, warm/dry Lymphatic: no adenopathy Progress - Progress Progress: Differential diagnosis: Diverticulitis, bowel obstruction, UTI, gastroparesis among others. 10/31/20 23:59 EKG does not show any signs of acute ischemia. Labs are relatively unremarkable. CT scan does not show bowel obstruction. I suspect patient has some mild gastroparesis. Plan on discussion with family regarding discharge home. 11/01/20 00:06 Speaking with the daughter, patient has had good results for abdominal pain with tramadol in the past. Patient does not currently have any at home. Plan on discharge home with a prescription for tramadol and follow-up with PCP. I discussed the plan of care with the patient and her daughter and they voiced understanding and agreement. Rajesh Weathers M.D. #[id number] - Results/Orders Results/Orders: 10/31/20 20:56 IV Care:Saline Lock per Protoc QSHIFT Sodium Chloride 0.9% (Flush) [Saline Flush Syringe] 10 ml IV PRN PRN 10/31/20 21:00 EKG STAT 10/31/20 23:02 Hold Metformin x 48Hrs [id number] Laboratory Results - last 24 hr 10/31/20 10/31/20 10/31/20 21:22 21:22 22:38 WBC 8.0 RBC 3.74 L Hgb 11.1 L Hct 33.5 L MCV 89.5 MCH 29.6 MCHC 33.1 RDW 14.9 H Plt Count 187 MPV 8.2 Absolute Neuts (auto) 6.60 Absolute Lymphs (auto) 0.90 L Absolute Monos (auto) 0.40 Absolute Eos (auto) 0.00 Absolute Basos (auto) 0.00 Neutrophils % 83.0 H Lymphocytes % 10.8 L Monocytes % 5.2 Eosinophils % 0.4 L Basophils % 0.6 Sodium 137 Potassium 3.5 L Chloride 103 Carbon Dioxide 24 Anion Gap 13.5 BUN 22 H Creatinine 0.77 BUN/Creatinine Ratio 28.6 H Random Glucose 176 H Serum Osmolality 281.5 Calcium 8.9 Total Bilirubin 0.4 Direct Bilirubin 0.1 Indirect Bilirubin 0.3 AST 20 ALT 10 Alkaline Phosphatase 61 Serum Total Protein 7.2 Albumin 3.8 Lipase 43 Urine Color Yellow Urine Appearance Clear Urine pH 6.5 Ur Specific [place] 1.020 Urine Protein Negative Urine Glucose (UA) 100 H Urine Ketones Negative Urine Blood Negative Urine Nitrite Negative Urine Bilirubin Negative Urine Urobilinogen 0.2 Ur Leukocyte Esterase Negative Urine RBC 0 Urine WBC 0-1 Ur Epithelial Cells 0-1 Urine Bacteria 0 EXAM DESCRIPTION: Abdomen/Pelvis w/Contrast 10/31/2020 11:40 PM [employer] CLINICAL HISTORY: 89 years, Female, abdominal pain COMPARISON: 12/06/2018 PROCEDURE: Contrast-enhanced images of the abdomen and pelvis were performed utilizing 5 mm slice thickness at 5 mm interval reconstruction from the lung bases to the ischial tuberosities after the administration of IV contrast. No dosing amount w as provided for interpretation. In addition multiplanar reformats in the coronal and sagittal plane were obtained and reviewed. An individualized dose optimization technique, Automated Exposure Control, was utilized for the performed procedure. FINDINGS: The lung bases demonstrate dependent atelectatic changes. There is a large hiatal hernia containing portions of the stomach within the lower chest cavity similar to prior study. The heart is in the upper normal size. The liver demonstrate tiny hypodensity within the right hepatic lobe similar to prior study most likely in store marketing representative of a cyst. Otherwise the liver, gallbladder, pancreas, spleen and adrenal glands demonstrate to be unremarkable, no focal lesions are noted. The kidneys demonstrate normal uptake of contrast media. No hydronephrosis and/or stones were identified. There is a lower pole left renal cyst measuring approximately 1.6 cm on image 37 smaller cyst are identified within the medial lower pole right kidney. Motion artifact limits the evaluation Grossly the unopacified stomach, small bowel and large bowel demonstrate to be within normal limits. Fecal residue and underdistention within the large bowel limits the evaluation. There is no evidence for bowel dilatation and/or free air. There is significant diverticulosis within the sigmoid colon. No definitive evidence for acute diverticulitis. The appendix was not visualized. The presence of total left hip arthroplasty limits evaluation of the pelvis due to streak artifact. The urinary bladder demonstrate to be unremarkable. The uterus is absent. The aorta d emonstrate minimal atherosclerotic disease. There is no retroperitoneal lymphadenopathy. There is no evidence for significant ascites and/or abnormal fluid collections. There is diffuse bony osteopenia. There is status post vertebroplasty at T9 T11 and T12 similar to prior study. There is new superior endplate compression deformity at L1. Slightly progressed superior endplate compression deformity at L2. Questionable small superior plate compression deformity at L3. IMPRESSION: MOTION ARTIFACT LIMITS THE EVALUATION. HEPATIC CYSTS. RENAL CYSTS. DIVERTICULOSIS. STATUS POST HYSTERECTOMY. LARGE HIATAL HERNIA WITH COMPRESSIVE ATELECTATIC CHANGES LUNG BASES. STATUS POST TOTAL LEFT HIP ARTHROPLASTY LIMITING DIAGNOSTIC VALUE OF THE PELVIS. STATUS POST VERTEBROPLASTY T8-9, T7 AND T12, UNCHANGED UNCHANGED IN COMPARISON. NEW SUPERIOR ENDPLATE COMPRESSION DEFORMITY AT L1, SLIGHT PROGRESSION SUPERIOR ENDPLATE COMPRESSION DEFORMITY AT L2. Electronically signed by: West Andrew MD 10/31/2020 11:48 PM [employer] EKG performed 31 October 2020 at 2141 hrs.: Normal sinus rhythm at 91 bpm, nonspecific ST changes, prolonged QT at 412 ms, abnormal EKG. No comparison EKG available at this time. Vital Signs 10/31/20 10/31/20 10/31/20 21:18 22:00 22:58 Temperature 97.2 F L 97.4 F L Pulse Rate 95 H Pulse Rate [ 95 H 89 90 Left Radial] Respiratory 18 18 18 Rate Blood Pressure 177/71 140/75 141/87 [Left Arm] O2 Sat by Pulse 93 L 98 97 Oximetry Departure - Departure Clinical Impression: Gastroparesis Abdominal pain Qualifiers: Abdominal location: generalized Qualified Code(s): R10.84 - Generalized abdominal pain Time of Disposition: 00:08 Disposition: Discharge to Home or Self Care Condition: Fair Departure Forms: ED Discharge - Pt. Copy, Patient Portal Self Enrollment Instructions: DI for Abdominal Pain-Adult, Severe Abdominal Pain, Adult (DC) Diet: bland diet Activity: increase activity as tolerated Referrals: West Urrutia III, MD [Primary Care Provider] - 1-5 Days Prescriptions: Tramadol HCl [Ultram] 50 mg PO Q8H 5 Days #20 tab Home Medications: Ambulatory Orders ALPRAZolam [Xanax] 0.25 mg PO BID PRN 10/03/14 Pregabalin [Lyrica] 50 mg PO BID 10/03/14 Citalopram Hydrobromide [Celexa] 40 mg PO DAILY 09/25/17 Famotidine [Pepcid Tab] 20 mg PO BID #60 tab 07/27/19 Ondansetron Odt [Zofran ODT] 4 mg PO Q8HR PRN #5 tab 07/27/19 Sucralfate Tab [Carafate Tab] 1 gm PO QID #120 tab 07/27/19 Tramadol HCl [Ultram] 50 mg PO Q8H 5 Days #20 tab 11/01/20
[2020-10-31 22:59] VITALS: TEMP 97.4
--- NOTE | 2020-10-31 23:49 | CT ---
EXAM DESCRIPTION: Abdomen/Pelvis w/Contrast 10/31/2020 11:40 PM [employer] CLINICAL HISTORY: 89 years, Female, abdominal pain COMPARISON: 12/06/2018 PROCEDURE: Contrast-enhanced images of the abdomen and pelvis were performed utilizing 5 mm slice thickness at 5 mm interval reconstruction from the lung bases to the ischial tuberosities after the administration of IV contrast. No dosing amount was provided for interpretation. In addition multiplanar reformats in the coronal and sagittal plane were obtained and reviewed. An individualized dose optimization technique, Automated Exposure Control, was utilized for the performed procedure. FINDINGS: The lung bases demonstrate dependent atelectatic changes. There is a large hiatal hernia containing portions of the stomach within the lower chest cavity similar to prior study. The heart is in the upper normal size. The liver demonstrate tiny hypodensity within the right hepatic lobe similar to prior study most likely policy services representative of a cyst. Otherwise the liver, gallbladder, pancreas, spleen and adrenal glands demonstrate to be unremarkable, no focal lesions are noted. The kidneys demonstrate normal uptake of contrast media. No hydronephrosis and/or stones were identified. There is a lower pole left renal cyst measuring approximately 1.6 cm on image 37 smaller cyst are identified within the medial lower pole right kidney. Motion artifact limits the evaluation Grossly the unopacified stomach, small bowel and large bowel demonstrate to be within normal limits. Fecal residue and underdistention within the large bowel limits the evaluation. There is no evidence for bowel dilatation and/or free air. There is significant diverticulosis within the sigmoid colon. No definitive evidence for acute diverticulitis. The appendix was not visualized. The presence of total left hip arthroplasty limits evaluation of the pelvis due to streak artifact. The urinary bladder demonstrate to be unremarkable. The uterus is absent. The aorta demonstrate minimal atherosclerotic disease. There is no retroperitoneal lymphadenopathy. There is no evidence for significant ascites and/or abnormal fluid collections. There is diffuse bony osteopenia. There is status post vertebroplasty at T9 T11 and T12 similar to prior study. There is new superior endplate compression deformity at L1. Slightly progressed superior endplate compression deformity at L2. Questionable small superior plate compression deformity at L3. IMPRESSION: MOTION ARTIFACT LIMITS THE EVALUATION. HEPATIC CYSTS. RENAL CYSTS. DIVERTICULOSIS. STATUS POST HYSTERECTOMY. LARGE HIATAL HERNIA WITH COMPRESSIVE ATELECTATIC CHANGES LUNG BASES. STATUS POST TOTAL LEFT HIP ARTHROPLASTY LIMITING DIAGNOSTIC VALUE OF THE PELVIS. STATUS POST VERTEBROPLASTY T8-9, T7 AND T12, UNCHANGED UNCHANGED IN COMPARISON. NEW SUPERIOR ENDPLATE COMPRESSION DEFORMITY AT L1, SLIGHT PROGRESSION SUPERIOR ENDPLATE COMPRESSION DEFORMITY AT L2. Electronically signed by: West Andrew MD 10/31/2020 11:48 PM [facility]
[2020-11-01] MEDS ORDERED: traMADol HCL 50 MG TAB PO ONE (00:13)
[2020-11-01 01:22] VITALS: BP 124/76; O2SAT 98
== END 2020-11-01 00:01 | disposition home or self-care (01) ==
LOC: ER 20:53
DX: K31.84 Gastroparesis (principal); I10 Essential (primary) hypertension; Z87.891 Personal history of nicotine dependence; K57.30 Diverticulosis of large intestine without perforation or abscess without bleeding; I45.81 Long QT syndrome; K44.9 Diaphragmatic hernia without obstruction or gangrene; Z79.899 Other long term (current) drug therapy
CPT/HCPCS: 36415; 74177; 80048; 80076; 81001; 83690; 85025; 93005; J2405; J7030